=== PATIENT | female | born 1950 | race Caucasian/White ===

== ENCOUNTER 2017-08-04 23:17 | Emergency (ER) | payer OTHER ==
--- NOTE | 2017-08-04 23:25 | PDOC ---
History of Present Illness - General Chief Complaint: Injury Stated Complaint: FELL INJURING RIGHT HAND/WRIST Time Seen by Provider: 08/04/17 23:19 History Source: Patient Exam Limitations: No Limitations - History of Present Illness Initial Comments: 08/04/17 23:32 This is a 66-year-old female who slipped and fell landing on her right hand. Patient comes in complaining of bruising and pain to her right hand and wrist area. Patient denies any other injuries did not pass out did not hit her head. Patient is otherwise healthy. PAST MEDICAL HISTORY: no significant history PAST SURGICAL HISTORY: no significant history FAMILY HISTORY: no pertinant history SOCIAL HISTORY: Pt lives with family and is employed. MEDICATIONS: reviewed ALLERGIES: As per nursing notes Review of Systems General: No fevers or chills, no weakness, no weight loss HEENT: No change in vision. No sore throat,. No ear pain CardioVascular: No chest pain or shortness of breath Respiratory:No cough, or wheezing. Gastrointestinal: no nausea, vomitting, diarrhea or constipation, No rectal bleeding Genitourinary: No dysuria, hematuria, or frequency Musculoskeletal: Right hand as per history of present illness Neurologic: No headache, vertigo, dizziness or loss of consciousness Psychiatric: nor depression Skin: No rashes or easy bruising Endocrine: no increased thirst or abnormal weight change Allergic: no skin or latex allergy All other systems reviewed and normal GENERAL: The patient is awake, alert, and fully oriented, in no acute distress. HEAD: Normal with no signs of trauma. EYES: Pupils equal, round and reactive to light, extraocular movements intact, sclera anicteric, conjunctiva clear. EXTREMITIES: Right hand there is tenderness and ecchymosis over the dorsum of the hand. Neurovascular distal is intact. There is decreased range of motion of the hand secondary to pain and swelling. NEUROLOGICAL: Normal speech, normal gait. grossly intact PSYCH: Normal mood, normal affect. SKIN: Warm, Dry, normal turgor, no rashes or lesions noted. 08/05/17 00:20 I am unable to get an x-ray tech to come in tonight as there appears to be normal and on-call and then able to locate attack times the last. Hour. I gave the patient the option of being discharged and returning tomorrow for an x-ray or see her primary care doctor and having him call in a prescription for her x- ray. Patient was put in a splint and discharged. Patient will follow-up with her doctor Dr. Freed in the morning. Past History - Past Medical History Allergies/Adverse Reactions: Allergies Allergy/AdvReac Type Severity Reaction Status Date / Time hydroxychloroquine sulfate Allergy Intermediate Rash Verified 08/04/17 23:20 [From Plaquenil] codeine Allergy Verified 08/04/17 23:20 Home Medications: Ambulatory Orders Celecoxib [Celebrex] 200 mg PO DAILY capsule 04/18/14 Cholecalciferol (Vitamin D3) [Vitamin D] 2,000 unit BC DAILY capsule 04/18/14 Cyclosporine [Restasis] 1 each OP BID 04/18/14 *DC/Admit/Observation/Transfer Diagnosis at time of Disposition: Contusion of right hand Qualifiers: Encounter type: initial encounter Qualified Code(s): S60.221A - Contusion of right hand, initial encounter - Discharge Dispostion Disposition: HOME Condition at time of disposition: Stable Admit: No - Referrals - Patient Instructions Additional Instructions: Wear the splint tonight for comfort, For pain take ibuprofen 600 mg 3 times a day with food don't take on an empty stomach. Call your doctor in the morning and tell him you were here but we were unable to do the x-ray and the he should be able to give you a prescription to get the x-ray done without having to pay for another ER visit. Return to the emergency department immediately with ANY new, persistent or worsening symptoms. Continue any medications as previously prescribed by your physician. You should follow up with your primary doctor as soon as possible regarding today's emergency department visit. . Please make sure your doctor reviews the results of your emergency evaluation. Thank you for coming to the Emergency Department today for your care. It was a pleasure to see you today. Please note that your evaluation is INCOMPLETE until you follow-up with your doctor. - Post Discharge Activity
[2017-08-04 23:27] VITALS: BP 165/98; PULSE 118; TEMP 97.9; BMI 22.3
== END 2017-08-05 00:25 | disposition home or self-care (01) ==
LOC: FER 23:17
PROC: 2W3CX1Z Immobilization of Right Lower Arm using Splint (ICD-10-PCS; principal; 2017-08-04)
DX: S60.221A Contusion of right hand, initial encounter (principal); W18.39XA Other fall on same level, initial encounter; Y93.89 Activity, other specified; Y92.9 Unspecified place or not applicable
CPT/HCPCS: 99281-25

== ENCOUNTER 2017-08-05 13:13 | Emergency (ER) | payer OTHER ==
--- NOTE | 2017-08-05 13:32 | PDOC ---
History of Present Illness - History of Present Illness Initial Comments: 08/05/17 14:27 Chief complaint hand pain History of present illness: 66 years old no past medical history presents to the emergency department with fall onto outstretched hand. Patient had a mechanical slip and fall yesterday while He for the holidays. Denies any symptoms prior to the fall there was no headache dizziness lightheadedness chest pain shortness of breath she fell she landed on her right outstretched hand. No other injuries sustained no head trauma. Presents today with swelling bruising complaining of 8 out of 10 persistent constant pain no exacerbating or alleviating factors <Jean Tamez - Last Filed: 08/05/17 14:26> <Becki Bernardo - Last Filed: 08/05/17 14:39> - General Chief Complaint: Injury Stated Complaint: RIGHT WRIST INJURY Time Seen by Provider: 08/05/17 13:28 Past History - Past Medical History COPD: No - Suicide/Smoking/Psychosocial Hx Smoking History: Former smoker Have you smoked in the past 12 months: No Hx Alcohol Use: No Drug/Substance Use Hx: No Substance Use Type: None <Jean Tamez - Last Filed: 08/05/17 14:26> <Becki Bernardo - Last Filed: 08/05/17 14:39> - Past Medical History Allergies/Adverse Reactions: Allergies Allergy/AdvReac Type Severity Reaction Status Date / Time codeine Allergy Verified 08/05/17 13:25 Home Medications: Ambulatory Orders Cholecalciferol (Vitamin D3) [Vitamin D] 2,000 unit BC DAILY capsule 04/18/14 Cyclosporine [Restasis] 1 each OP BID 04/18/14 Methotrexate Sodium [Methotrexate] 2.5 mg PO ASDIR 08/05/17 Prednisone [Deltasone -] 2.5 mg PO DAILY 08/05/17 Tramadol HCl [Ultram -] 50 mg PO PRN 08/05/17 Review of Systems - Review of Systems Comments:: 08/05/17 14:27 ROS: A complete review of 10 out of 10 review of systems is taken and is negative apart from what is previously mentioned below and in the HPI. <Jean Tamez - Last Filed: 08/05/17 14:26> *Physical Exam - Physical Exam Comments: 08/05/17 14:28 Vitals: Triage Vital signs reviewed General Appearance: no acute distress, well nourished well developed, Extremities: Full range of motion to all extremities, no cyanosis, clubbing, or edema, neurovascularly intact distally. Tenderness to palpation over the distal radius and base of the thumb. Skin: Warm and dry, no rashes or lesions, no rash, no petechiae Neuro: Strength intact to all extremities, Sensation intact to all extremities, gait normal Psych: normal mood, normal affect <Jean Tamez - Last Filed: 08/05/17 14:26> - Vital Signs Last Vital Signs Temp Pulse Resp BP Pulse Ox 98.6 F 86 16 160/91 98 08/05/17 13:15 08/05/17 13:15 08/05/17 13:15 08/05/17 13:15 08/05/17 13:15 <Becki Bernardo - Last Filed: 08/05/17 14:39> ED Treatment Course - Medications Given in the ED: ED Medications Discontinued Medications Generic Name Dose Route Start Last Admin Trade Name Twyla PRN Reason Stop Dose Admin Ibuprofen 600 mg 08/05/17 13:47 08/05/17 13:52 Motrin - PO 08/05/17 13:48 600 mg ONCE ONE Administration <Becki Bernardo - Last Filed: 08/05/17 14:39> Medical Decision Making - Medical Decision Making 08/05/17 14:28 BRETT. X-rays demonstrate severe degenerative arthritis with no acute fracture or acute bone or joint abnormalities. Given tenderness palpation over the distal radius and proximal thumb we'll place in thumb spica wrist splint and have patient follow up with orthopedics this week Findings, the need for follow-up, strict return instructions discussed with patient. <Jean Tamez - Last Filed: 08/05/17 14:26> *DC/Admit/Observation/Transfer - Discharge Dispostion Admit: No <Jean Tamez - Last Filed: 08/05/17 14:26> <Becki Bernardo - Last Filed: 08/05/17 14:39> Diagnosis at time of Disposition: Wrist pain Qualifiers: Laterality: right Qualified Code(s): M25.531 - Pain in right wrist - Discharge Dispostion Condition at time of disposition: Stable - Referrals Referrals: Aric Victoria [Non Staff, Medical] - - Patient Instructions Printed Discharge Instructions: Wrist Sprain Additional Instructions: Wear wrist splint at all times until seen by Dr. Victoria hand. Ice 20 minutes on 20 minutes off. Okay to take Motrin as needed for pain. Return to ED for any concern. Follow-up with Dr. Victoria this week. Purchase a Thumb Spica splint.
[2017-08-05 13:39] VITALS: BP 160/91; PULSE 86; TEMP 98.6; BMI 22.3
[2017-08-05] MEDS ORDERED: IBUPROFEN 600 MG TABLET (FP) PO ONE ×2 (13:47→13:50)
== END 2017-08-05 15:13 | disposition home or self-care (01) ==
LOC: FER 13:13
PROC: 2W3CX1Z Immobilization of Right Lower Arm using Splint (ICD-10-PCS; principal; 2017-08-05)
DX: M25.531 Pain in right wrist (principal); W18.39XA Other fall on same level, initial encounter; Y93.89 Activity, other specified; Y92.9 Unspecified place or not applicable; Z87.891 Personal history of nicotine dependence
CPT/HCPCS: 73110-TC-RT; 73130-TC-RT; 99281-25

== ENCOUNTER 2018-09-03 06:06 | Day surgery (SDC) | payer BC ==
[2018-08-31 14:09] VITALS: BMI 24.5
[2018-09-03] MEDS ORDERED: ROPIVACAINE HCL 0.5% 30ML VIAL ONE (07:23)
[2018-09-03] MEDS ORDERED: ePHEDrine SULFATE 50 MG/1 ML AMPULE ONE (07:23)
[2018-09-03] MEDS ORDERED: MIDAZOLAM HCL 2 MG/2 ML SINGLE DOSE VIAL ONE (07:23)
[2018-09-03] MEDS ORDERED: SUCCINYLCHOLINE CHLORIDE 200 MG/10 ML VIAL ONE (07:24)
[2018-09-03] MEDS ORDERED: PROPOFOL 20 ML ONE ×12 (07:24→11:49)
[2018-09-03] MEDS ORDERED: EPINEPHrine 1:1,000 1 MG/1 ML - 30ML VIAL (INJECTION) ONE (07:26)
[2018-09-03] MEDS ORDERED: ONDANSETRON 4 MG/2 ML VIAL ONE (08:02)
[2018-09-03] MEDS ORDERED: DEXAMETHASONE SOD PHOSPHATE 4 MG/1 ML VIAL ONE (08:02)
[2018-09-03] MEDS ORDERED: ceFAZolin SODIUM 1 GM VIAL ONE (08:02)
[2018-09-03] MEDS ORDERED: oxyCODONE HCL 5 MG TABLET PO PRN ×2 (09:26)
[2018-09-03] MEDS ORDERED: ONDANSETRON 4 MG/2 ML VIAL IVPUSH PRN (09:26)
[2018-09-03] MEDS ORDERED: LACTATED RINGERS SOLUTION 1,000 ML IV SCH (09:30)
[2018-09-03] MEDS ORDERED: LIDOCAINE 1%/EPI 1:100000 (20 ML MULTI DOSE VIAL) ONE (11:31)
[2018-09-03] MEDS ORDERED: BACITRACIN 15 GM TUBE TOPICAL OINTMENT ONE (12:19)
[2018-09-03 14:23] VITALS: TEMP 98.2
[2018-09-03 15:34] VITALS: BP 139/75; PULSE 80
--- NOTE | 2018-09-04 08:58 | OP ---
DATE OF OPERATION: 09/03/2018 PREOPERATIVE DIAGNOSIS: Left shoulder rotator cuff tear, biceps rupture, impingement. POSTOPERATIVE DIAGNOSIS: Left shoulder rotator cuff tear, biceps rupture, impingement. PROCEDURE: Left shoulder arthroscopy with rotator cuff repair, biceps tenodesis, subacromial decompression. SURGEON: Emerson Lopez MD ASSISTANTS: 1. Migel Phillip MD 2. Malika Salas, physician delinquent tax collector assistant Dr. Phillip's assistance was necessary for the safe and timely performance of this procedure. He was able to provide limb positioning, retraction, assistance driving the camera, assist in suture passage as well as the insertion of orthopedic hardware. ANESTHESIA: Regional. POSTOPERATIVE CONDITION: Stable. COMPLICATIONS: None. IMPLANTS: Arthrex SwiveLock x6, Back [employer] Nephew QFIX x1. INDICATIONS: This is a pleasant 67-year-old female who had been suffering from shoulder pain and weakness. She is very active and likes to exercise at the gym frequently. She also noted deformity of her arm. MRI demonstrated rotator cuff tear as well as biceps rupture. Treatment options including nonoperative versus operative management were reviewed. Operative risks were reviewed in detail including bleeding, infection, neurovasculature injury, need for further surgery, postoperative pain and stiffness, rotator cuff re-rupture, failure to restore the normal contour and function of the biceps. We discussed medical risks such as heart attack, stroke, DVT, PE, and . I reviewed the postoperative rehabilitation protocol which is prolonged and slow. I discussed the use of perioperative antibiotic and DVT prophylaxis. I addressed all the patient's questions and concerns. She voiced understanding and elected to proceed. DESCRIPTION OF PROCEDURE: Patient was brought to the operating room after administration of regional block in the preoperative holding area. She was placed into the beach chair position, careful to pad all bony prominences. The left upper extremity was then prepped and draped in the usual sterile fashion. A preoperative dose of antibiotics was given, and the usual timeout procedure was performed. The bony landmarks were now marked out. A posterior viewing portal was established. Passing the arthroscope into the glenohumeral joint demonstrated some moderate partial-thickness chondral loss along the glenoid and humeral surfaces. The biceps stump was still present and folded inside the joint. The biceps was clearly ruptured, though. Passing the camera anteriorly demonstrated some degeneration of the anterior labrum. The subscapularis was examined, demonstrating full tear. The arthroscope was now passed back along the rotator cuff, and the supraspinatus was seen to be torn as well as the anterior border of the infraspinatus. At this point, an anterior portal was established. The base of the biceps was debrided. Attention was first turned to the subscapularis. Utilizing the shaver as well as electrocautery, the subscapularis was mobilized on its superior and posterior borders. This allowed quaker to the footprint. Additional working portals were established. The lesser tuberosity was debrided down to a bleeding bony base. Utilizing suture passer, 3 luggage tag-type sutures were passed through the subscapularis along its superior, middle, and inferior portions. These sutures were then loaded into a superior and an inferior SwiveLock anchor which were punched and then inserted, securing the subscapularis down to the bone. The shoulder was passed through a range of motion, and the repair was seen to be stable. Attention was then turned into the subacromial space. Here, impingement morphology was noted. A subacromial decompression was performed utilizing electrocautery as well as a shaver and a bur. The rotator cuff footprint was now debrided down to bleeding bone as well. Two medial row anchors were punched and then inserted. They were then passed through the rotator cuff using a suture passing device. The individual limbs were then passed into a crossing pattern and loaded into 2 lateral row anchors, securing the rotator cuff down onto the greater tuberosity. The shoulder was passed through a range of motion and the repair was seen to be stable. At this point, the portal sites were sutured. Attention was turned anteriorly. Incision was planned out over the inferior border of the pectoralis major tendon. The shoulder was reprepped at this time. The incision was then carried down through skin to subcutaneous tissue. Blunt spreading was then used to expose the fascia over the pectoralis tendon. Finger dissection was now used to carry down to the bicipital groove. Here, the stump of the biceps tendon was identified. The stump was retrieved out of the wound. The biceps was mobilized using finger dissection as much as possible. The bicipital groove was now rasped to provide a good healing bed. A QFIX anchor was drilled and then inserted into the midportion of the bicipital groove. The sutures were then passed through the stump of the biceps in whipstitch locking fashion. The biceps was then tied into the groove utilizing edgar technique with the suture. The excess sutures were now cut. The wound was copiously irrigated. The pectoralis wound was now sutured using mattress 4-0 nylon sutures. Sterile dressings were now placed. The patient was transferred to recovery room in stable condition. Sury MENDOZA/[id number]
== END 2018-09-03 15:15 | disposition home or self-care (01) ==
LOC: FASU 06:06
PROVIDERS: ATTEND Orthopaedic Surgery Sports Medicine
PROC: 0LS24ZZ Reposition Left Shoulder Tendon, Percutaneous Endoscopic Approach (ICD-10-PCS; 2018-09-03)
PROC: 0RNK4ZZ Release Left Shoulder Joint, Percutaneous Endoscopic Approach (ICD-10-PCS; 2018-09-03)
PROC: 0LQ24ZZ Repair Left Shoulder Tendon, Percutaneous Endoscopic Approach (ICD-10-PCS; principal; 2018-09-03 08:52)
DX: M75.102 Unspecified rotator cuff tear or rupture of left shoulder, not specified as traumatic (principal); M66.812 Spontaneous rupture of other tendons, left shoulder
CPT/HCPCS: 94760

== ENCOUNTER 2020-11-08 06:39 | Day surgery (SDC) | payer BC ==
[2020-11-06 15:11] VITALS: BMI 22.6
[2020-11-08] MEDS ORDERED: TROPICAMIDE 1% OPHTH SOLN 15 ML BOTTLE ONE (07:33)
[2020-11-08] MEDS ORDERED: CIPROFLOXACIN 0.3% EYE DROPS 5 ML BOTTLE ONE (07:33)
[2020-11-08] MEDS ORDERED: PHENYLEPHRINE 2.5% OPHTH SOLN 15 ML BOTTLE ONE (07:33)
[2020-11-08] MEDS ORDERED: CYCLOPENTOLATE 2% OPHTH SOLN 2 ML BOTTLE ONE (07:33)
[2020-11-08] MEDS ORDERED: TETRACAINE 0.5% OPHTH SOLN 2 ML BOTTLE ONE (08:32)
[2020-11-08] MEDS ORDERED: NEO/POLYMYX B SULF/DEXAMETH OPHTHALMIC 5ML BOTTLE ONE (08:32)
[2020-11-08] MEDS ORDERED: CARBACHOL 0.01% INTRA-OCULAR 1.5 ML VIAL ONE (08:32)
[2020-11-08] MEDS ORDERED: BSS (NA/CA/MG/K) BALANCED SALT SOLUTION OPHTH SOLN 15 ML BOTTLE ONE (08:32)
[2020-11-08] MEDS ORDERED: LIDOCAINE 1% P/F 10 MG/ML VIAL ONE (08:32)
[2020-11-08] MEDS ORDERED: MIDAZOLAM HCL 2 MG/2 ML SINGLE DOSE VIAL ONE ×2 (08:46→08:56)
[2020-11-08 09:21] VITALS: PULSE 67
[2020-11-08 09:52] VITALS: BP 125/68; TEMP 98
== END 2020-11-08 10:06 | disposition home or self-care (01) ==
LOC: FASU 06:39
PROVIDERS: ATTEND Ophthalmology
PROC: 08RJ3JZ Replacement of Right Lens with Synthetic Substitute, Percutaneous Approach (ICD-10-PCS; principal; 2020-11-08 08:54)
DX: H26.8 Other specified cataract (principal)

== ENCOUNTER 2020-12-13 07:32 | Day surgery (SDC) | payer BC ==
[2020-12-08 16:24] VITALS: BMI 22.6
[2020-12-13] MEDS: CIPROFLOXACIN 0.3% EYE DROPS 5 ML BOTTLE ONE ×3 (08:05→08:15)
[2020-12-13] MEDS: CYCLOPENTOLATE 2% OPHTH SOLN 2 ML BOTTLE ONE ×3 (08:05→08:15)
[2020-12-13] MEDS: TROPICAMIDE 1% OPHTH SOLN 15 ML BOTTLE ONE ×3 (08:05→08:15)
[2020-12-13] MEDS: PHENYLEPHRINE 2.5% OPHTH SOLN 15 ML BOTTLE ONE ×3 (08:05→08:15)
[2020-12-13] MEDS ORDERED: LIDOCAINE 1% P/F 10 MG/ML VIAL ONE (08:55)
[2020-12-13] MEDS ORDERED: CARBACHOL 0.01% INTRA-OCULAR 1.5 ML VIAL ONE (08:55)
[2020-12-13] MEDS ORDERED: NEO/POLYMYX B SULF/DEXAMETH OPHTHALMIC 5ML BOTTLE ONE (08:55)
[2020-12-13] MEDS ORDERED: BSS (NA/CA/MG/K) BALANCED SALT SOLUTION OPHTH SOLN 15 ML BOTTLE ONE (08:55)
[2020-12-13] MEDS ORDERED: TETRACAINE 0.5% OPHTH SOLN 2 ML BOTTLE ONE (08:55)
[2020-12-13] MEDS ORDERED: MIDAZOLAM HCL 2 MG/2 ML SINGLE DOSE VIAL ONE ×2 (09:03→09:18)
[2020-12-13 10:14] VITALS: BP 139/80; PULSE 77; TEMP 97.9
== END 2020-12-13 10:14 | disposition home or self-care (01) ==
LOC: FASU 07:32
PROVIDERS: ATTEND Ophthalmology
PROC: 08RK3JZ Replacement of Left Lens with Synthetic Substitute, Percutaneous Approach (ICD-10-PCS; principal; 2020-12-13 09:18)
DX: H26.8 Other specified cataract (principal)

== ENCOUNTER 2022-02-12 14:22 | Emergency (ER) | payer BC ==
[2022-02-12 15:11] VITALS: BP 134/80; PULSE 83; TEMP 98.9; BMI 23.3
[2022-02-12] MEDS ORDERED: FAMOTIDINE 20 MG/50 ML IVPB 20 MG/50 ML MG IVPB ONE ×2 (15:27→15:50)
[2022-02-12] MEDS ORDERED: LOPERAMIDE HCL 2 MG CAPSULE PO ONE (15:27)
[2022-02-12] MEDS ORDERED: ACETAMINOPHEN 1000 MG/100 ML BAG IVPB ONE (15:27)
[2022-02-12] MEDS ORDERED: ONDANSETRON 4 MG/2 ML VIAL IVPUSH ONE (15:27)
[2022-02-12] MEDS ORDERED: SODIUM CHLORIDE 0.9% 1000 ML INFUS.BAG IV ONE (15:27)
[2022-02-12] MEDS ORDERED: COD LIVER OIL/ZINC OXIDE PASTE 56 GM TUBE TP ONE (15:42)
[2022-02-12] MEDS ORDERED: ALPRAZolam 0.25 MG TABLET PO ONE (15:44)
[2022-02-12] MEDS ORDERED: ACETAMINOPHEN INJECTION 100 ML IVPB ONE (15:50)
[2022-02-12] MEDS ORDERED: LOPERAMIDE HCL 2 MG CAPSULE ONE (15:50)
[2022-02-12] MEDS ORDERED: ONDANSETRON 4 MG/2 ML VIAL ONE (15:50)
[2022-02-12] MEDS ORDERED: ALPRAZolam 0.25 MG TABLET ONE (15:51)
[2022-02-12 16:31] LABS: HEMATOCRIT 24.3 % (32.4-45.2); HEMOGLOBIN 8.3 G/dL (10.7-15.3); MCH 27.6 pg (25.7-33.7); MEAN CELL VOLUME 81.4 fl (80-96); MEAN PLT VOLUME 7.7 fl (7.5-11.1); PLATELET COUNT 528.8 10^3/uL (134-434); RBC 2.99 10^6/uL (3.60-5.2); RDW 17.2 % (11.6-15.6); WHITE BLOOD COUNT 10.8 10^3/uL (4.0-10.8)
[2022-02-12 17:35] LABS: ALBUMIN 2.7 g/dl (3.4-5.0); BILIRUBIN,TOTAL 0.4 mg/dl (0.2-1); CALCIUM 9.8 mg/dl (8.5-10); CREATININE 0.6 mg/dl (0.55-1.3); TOT PROT 7.2 g/dl (6.4-8.2)
[2022-02-12] MEDS ORDERED: POTASSIUM CHLORIDE ORAL LIQUID 20 MEQ/15 ML PO ONE (18:31)
[2022-02-12] MEDS ORDERED: POTASSIUM CHLORIDE TABS 20 MEQ TABLET.ER (FP) PO ONE ×2 (18:31→19:07)
[2022-02-12] MEDS ORDERED: POTASSIUM CHLORIDE ORAL LIQUID 20 MEQ/15 ML ONE (19:07)
== END 2022-02-12 22:30 | disposition home or self-care (01) ==
LOC: FER 14:22
PROC: 3E0333Z Introduction of Anti-inflammatory into Peripheral Vein, Percutaneous Approach (ICD-10-PCS; principal; 2022-02-12)
PROC: 3E033GC Introduction of Other Therapeutic Substance into Peripheral Vein, Percutaneous Approach (ICD-10-PCS; 2022-02-12)
PROC: 3E033GC Introduction of Other Therapeutic Substance into Peripheral Vein, Percutaneous Approach (ICD-10-PCS; 2022-02-12)
DX: A09 Infectious gastroenteritis and colitis, unspecified (principal)
CPT/HCPCS: 36415; 72132-TC; 80053; 85027; 87040; 87186; 99284-25; Q9967

== ENCOUNTER 2022-02-13 20:31 | Emergency (ER) | payer BC ==
[2022-02-13 20:44] VITALS: BP 135/60; PULSE 80; TEMP 98.8; BMI 23.8
== END 2022-02-13 22:04 | disposition home or self-care (01) ==
LOC: FER 20:31
DX: R79.89 Other specified abnormal findings of blood chemistry (principal)
CPT/HCPCS: 87040; 99283-25

== ENCOUNTER 2022-03-02 19:17 | Inpatient (IN) | payer BC ==
[2022-03-02 20:03] LABS: HEMATOCRIT 28.1 % (32.4-45.2); HEMOGLOBIN 9.3 G/dL (10.7-15.3); MCH 27.2 pg (25.7-33.7); MEAN CELL VOLUME 82.6 fl (80-96); MEAN PLT VOLUME 7.9 fl (7.5-11.1); PLATELET COUNT 448.8 10^3/uL (134-434); RDW 18.4 % (11.6-15.6); WHITE BLOOD COUNT 11.9 10^3/uL (4.0-10.8)
[2022-03-02 20:19] LABS: ALBUMIN 3.3 g/dl (3.4-5.0); BILIRUBIN,TOTAL 0.6 mg/dl (0.2-1); CREATININE 0.6 mg/dl (0.55-1.3); TOT PROT 8.5 g/dl (6.4-8.2)
[2022-03-02] MEDS ORDERED: CYCLOBENZAPRINE HCL 5 MG TABLET PO STA (20:42)
[2022-03-02] MEDS ORDERED: CYCLOBENZAPRINE HCL 5 MG TABLET ONE (20:45)
[2022-03-02 21:02] LABS: ANISOCYTOSIS 2+
[2022-03-02 21:03] LABS: TEAR DROP CELLS 1+
[2022-03-02 21:16] LABS: EPITHELIAL CELLS FEW /hpf
[2022-03-03] MEDS ORDERED: MAGNESIUM SULFATE IN WATER 2 GM/50 ML IVPB IVPB ONE (00:05)
[2022-03-03] MEDS ORDERED: MAGNESIUM 1GM/D5W - 2 GM/200 ML IVPB IVPB ONE (00:06)
[2022-03-03] MEDS ORDERED: POLYETHYLENE GLYCOL (HEALTHYLAX) 3350 17 GM PACKET PO PRN (00:08)
[2022-03-03] MEDS ORDERED: amLODIPine BESYLATE 5 MG TABLET (FP) PO SCH (00:13)
[2022-03-03] MEDS: EZETIMIBE 10 MG TABLET (FP) PO SCH ×2 (01:05→21:06)
[2022-03-03] MEDS: oxyCODONE HCL 5 MG TABLET PO PRN ×4 (02:54→20:45)
[2022-03-03] MEDS: ACETAMINOPHEN 325 MG TABLET (FP) PO PRN ×4 (02:56→20:44)
[2022-03-03] MEDS: methylPREDNISolone 4 MG TABLET PO SCH (09:06)
[2022-03-03] MEDS: ESCITALOPRAM OXALATE 10 MG TABLET PO SCH (09:07)
[2022-03-03] MEDS: ENOXAPARIN NA (PORCINE) 40 MG/0.4 ML DISP.SYRIN SQ SCH (09:07)
[2022-03-03] MEDS ORDERED: LIDOCAINE 5% TOPICAL PATCH TP ONE (09:10)
[2022-03-03 09:42] LABS: HEMATOCRIT 28.5 % (32.4-45.2); HEMOGLOBIN 9.2 G/dL (10.7-15.3); MCH 26.8 pg (25.7-33.7); MCHC 32.2 g/dl (32.0-36.0); MEAN CELL VOLUME 83.2 fl (80-96); MEAN PLT VOLUME 8.3 fl (7.5-11.1); PLATELET COUNT 481.5 10^3/uL (134-434); RBC 3.43 10^6/uL (3.60-5.2); RDW 18.4 % (11.6-15.6); WHITE BLOOD COUNT 8.7 10^3/uL (4.0-10.8)
[2022-03-03 09:49] LABS: ACTIVATED PTT 36.5 SECONDS (25.2-36.5); INR 1.15 (0.83-1.09); PROTHROMBIN TIME (PATIENT) 13.3 SEC (9.7-13.0)
[2022-03-03 10:04] LABS: CALCIUM 9.9 mg/dl (8.5-10); CREATININE 0.6 mg/dl (0.55-1.3)
[2022-03-03] MEDS: GABAPENTIN 100 MG CAPSULE PO SCH ×3 (10:13→21:06)
[2022-03-03] MEDS ORDERED: SODIUM CHLORIDE 1,000 ML IV SCH (10:15)
[2022-03-03] MEDS: FAMOTIDINE 20 MG TABLET PO SCH (10:48)
[2022-03-03] MEDS ORDERED: BACLOFEN 10 MG TABLET (FP) PO ONE (13:03)
[2022-03-03] MEDS: TOFACITINIB 11 MG PO SCH (13:52)
[2022-03-03] MEDS: FERROUS SO4 325 MG TABLET (FP) PO SCH (17:24)
[2022-03-03] MEDS ORDERED: LIDOCAINE PATCH REMOVAL MC ONE (22:00)
[2022-03-03] MEDS: ALPRAZolam 0.25 MG TABLET PO PRN (23:42)
[2022-03-04] MEDS: oxyCODONE HCL 5 MG TABLET PO PRN (04:05)
[2022-03-04] MEDS: GABAPENTIN 100 MG CAPSULE PO SCH ×3 (06:34→21:06)
[2022-03-04 08:04] LABS: CALCIUM 9.7 mg/dl (8.5-10); CREATININE 0.7 mg/dl (0.55-1.3); HEMATOCRIT 26.2 % (32.4-45.2); HEMOGLOBIN 8.5 G/dL (10.7-15.3); MCHC 32.5 g/dl (32.0-36.0); MEAN CELL VOLUME 83.2 fl (80-96); PLATELET COUNT 459.2 10^3/uL (134-434); RBC 3.15 10^6/uL (3.60-5.2); RDW 18.8 % (11.6-15.6); WHITE BLOOD COUNT 8.9 10^3/uL (4.0-10.8)
[2022-03-04] MEDS: ACETAMINOPHEN 325 MG TABLET (FP) PO PRN ×2 (09:15→18:31)
[2022-03-04] MEDS: FERROUS SO4 325 MG TABLET (FP) PO SCH ×3 (09:15→19:11)
[2022-03-04] MEDS: FAMOTIDINE 20 MG TABLET PO SCH (10:32)
[2022-03-04] MEDS: ENOXAPARIN NA (PORCINE) 40 MG/0.4 ML DISP.SYRIN SQ SCH (10:32)
[2022-03-04] MEDS: methylPREDNISolone 4 MG TABLET PO SCH (10:32)
[2022-03-04] MEDS: TOFACITINIB 11 MG PO SCH (10:32)
[2022-03-04] MEDS: ESCITALOPRAM OXALATE 10 MG TABLET PO SCH (10:32)
[2022-03-04] MEDS: amLODIPine BESYLATE 5 MG TABLET (FP) PO SCH (10:32)
[2022-03-04] MEDS: BACLOFEN 10 MG TABLET (FP) PO SCH ×2 (14:24→21:06)
[2022-03-04] MEDS: EZETIMIBE 10 MG TABLET (FP) PO SCH (21:06)
[2022-03-05] MEDS: ACETAMINOPHEN 325 MG TABLET (FP) PO PRN ×2 (04:32→14:18)
[2022-03-05] MEDS: GABAPENTIN 100 MG CAPSULE PO SCH ×3 (05:44→21:57)
[2022-03-05] MEDS: BACLOFEN 10 MG TABLET (FP) PO SCH ×3 (05:44→21:57)
[2022-03-05 07:25] LABS: ALBUMIN 2.9 g/dl (3.4-5.0); BILIRUBIN,TOTAL 0.6 mg/dl (0.2-1); CALCIUM 9.6 mg/dl (8.5-10); CREATININE 0.6 mg/dl (0.55-1.3); TOT PROT 7.7 g/dl (6.4-8.2)
[2022-03-05] MEDS: FERROUS SO4 325 MG TABLET (FP) PO SCH ×2 (07:55→17:40)
[2022-03-05 08:12] LABS: HEMATOCRIT 26.3 % (32.4-45.2); HEMOGLOBIN 8.6 GM/dL (10.7-15.3); MCH 26.2 pg (25.7-33.7); MCHC 32.6 g/dl (32.0-36.0); MEAN CELL VOLUME 80.3 fl (80-96); MEAN PLT VOLUME 7.4 fl (7.5-11.1); PLATELET COUNT 447 10^3/uL (134-434); RBC 3.28 M/mm3 (3.60-5.2); RDW 19.1 % (11.6-15.6); WHITE BLOOD COUNT 9.1 K/mm3 (4.0-10.0)
[2022-03-05] MEDS ORDERED: CEFAZOLIN 1 GM in DEXTROSE 5%-WATER - 50 ML IVPB SCH (10:00)
[2022-03-05] MEDS: methylPREDNISolone 4 MG TABLET PO SCH (11:40)
[2022-03-05] MEDS: FAMOTIDINE 20 MG TABLET PO SCH (11:40)
[2022-03-05] MEDS: amLODIPine BESYLATE 5 MG TABLET (FP) PO SCH (11:40)
[2022-03-05] MEDS: ENOXAPARIN NA (PORCINE) 40 MG/0.4 ML DISP.SYRIN SQ SCH (11:40)
[2022-03-05] MEDS: TOFACITINIB 11 MG PO SCH (11:40)
[2022-03-05] MEDS: ESCITALOPRAM OXALATE 10 MG TABLET PO SCH (11:40)
[2022-03-05] MEDS: ALPRAZolam 0.25 MG TABLET PO PRN (21:57)
[2022-03-05] MEDS: EZETIMIBE 10 MG TABLET (FP) PO SCH (21:57)
[2022-03-06] MEDS: GABAPENTIN 100 MG CAPSULE PO SCH ×3 (05:22→21:14)
[2022-03-06] MEDS: BACLOFEN 10 MG TABLET (FP) PO SCH ×3 (05:23→21:14)
[2022-03-06] MEDS: FERROUS SO4 325 MG TABLET (FP) PO SCH ×2 (07:27→17:50)
[2022-03-06 08:24] LABS: INR 1.24 (0.83-1.09); PROTHROMBIN TIME (PATIENT) 14.3 SEC (9.7-13.0)
[2022-03-06 08:26] LABS: ACTIVATED PTT 35.6 SECONDS (25.2-36.5)
[2022-03-06 08:32] LABS: ALBUMIN 2.9 g/dl (3.4-5.0); BILIRUBIN,TOTAL 0.5 mg/dl (0.2-1); CALCIUM 9.8 mg/dl (8.5-10); CREATININE 0.6 mg/dl (0.55-1.3); TOT PROT 7.7 g/dl (6.4-8.2)
[2022-03-06 09:24] LABS: HEMATOCRIT 24.9 % (32.4-45.2); MCHC 32.1 g/dl (32.0-36.0); MEAN PLT VOLUME 7.7 fl (7.5-11.1); PLATELET COUNT 446 10^3/uL (134-434); RBC 3.08 M/mm3 (3.60-5.2); RDW 19.2 % (11.6-15.6); WHITE BLOOD COUNT 8.6 K/mm3 (4.0-10.0)
[2022-03-06] MEDS: ESCITALOPRAM OXALATE 10 MG TABLET PO SCH (09:28)
[2022-03-06] MEDS: FAMOTIDINE 20 MG TABLET PO SCH (09:29)
[2022-03-06] MEDS: amLODIPine BESYLATE 5 MG TABLET (FP) PO SCH (09:29)
[2022-03-06] MEDS: ENOXAPARIN NA (PORCINE) 40 MG/0.4 ML DISP.SYRIN SQ SCH (09:29)
[2022-03-06] MEDS: TOFACITINIB 11 MG PO SCH (09:29)
[2022-03-06] MEDS: methylPREDNISolone 4 MG TABLET PO SCH (09:29)
[2022-03-06] MEDS ORDERED: NAFCILLIN NA 2 GM VIAL IVPB ONE ×4 (11:27→21:02)
[2022-03-06] MEDS ORDERED: DEXTROSE 5%-WATER - 100 ML IVPB ONE ×4 (11:27→21:01)
[2022-03-06] MEDS: NAFCILLIN - 2 GM in DEXTROSE 5%-WATER - 100 ML IVPB SCH ×4 (11:33→21:14)
[2022-03-07] MEDS ORDERED: NAFCILLIN NA 2 GM VIAL IVPB ONE ×6 (00:30→20:45)
[2022-03-07] MEDS ORDERED: DEXTROSE 5%-WATER - 100 ML IVPB ONE ×6 (00:30→20:44)
[2022-03-07] MEDS: NAFCILLIN - 2 GM in DEXTROSE 5%-WATER - 100 ML IVPB SCH ×6 (01:17→23:26)
[2022-03-07] MEDS: GABAPENTIN 100 MG CAPSULE PO SCH ×3 (06:13→20:59)
[2022-03-07] MEDS: BACLOFEN 10 MG TABLET (FP) PO SCH ×3 (06:13→20:59)
[2022-03-07] MEDS: ALPRAZolam 1 MG TABLET PO PRN ×2 (08:57→22:41)
[2022-03-07] MEDS: FERROUS SO4 325 MG TABLET (FP) PO SCH ×2 (08:57→17:19)
[2022-03-07] MEDS: amLODIPine BESYLATE 5 MG TABLET (FP) PO SCH (10:16)
[2022-03-07] MEDS: FAMOTIDINE 20 MG TABLET PO SCH (10:16)
[2022-03-07] MEDS: ESCITALOPRAM OXALATE 10 MG TABLET PO SCH (10:16)
[2022-03-07] MEDS: ENOXAPARIN NA (PORCINE) 40 MG/0.4 ML DISP.SYRIN SQ SCH (10:24)
[2022-03-07] MEDS: ACETAMINOPHEN 325 MG TABLET (FP) PO PRN (14:42)
[2022-03-08] MEDS: NAFCILLIN - 2 GM in DEXTROSE 5%-WATER 100 ML IVPB SCH ×6 (01:16→21:44)
[2022-03-08] MEDS: ACETAMINOPHEN 1000 MG/100 ML BAG IVPB PRN ×3 (04:02→20:19)
[2022-03-08] MEDS: BACLOFEN 10 MG TABLET (FP) PO SCH ×3 (05:32→21:43)
[2022-03-08] MEDS: GABAPENTIN 100 MG CAPSULE PO SCH ×3 (05:32→21:43)
[2022-03-08] MEDS ORDERED: POLYETHYLENE GLYCOL (HEALTHYLAX) 3350 17 GM PACKET PO PRN (07:48)
[2022-03-08] MEDS: ALPRAZolam 1 MG TABLET PO PRN (08:55)
[2022-03-08] MEDS ORDERED: NAFCILLIN NA 2 GM VIAL IVPB ONE ×4 (09:01→21:12)
[2022-03-08] MEDS: ESCITALOPRAM OXALATE 10 MG TABLET PO SCH (09:07)
[2022-03-08] MEDS: FAMOTIDINE 20 MG TABLET PO SCH (09:07)
[2022-03-08] MEDS: FERROUS SO4 325 MG TABLET (FP) PO SCH ×2 (09:19→18:17)
[2022-03-08] MEDS: ENOXAPARIN NA (PORCINE) 40 MG/0.4 ML DISP.SYRIN SQ SCH (10:59)
[2022-03-08] MEDS: amLODIPine BESYLATE 5 MG TABLET (FP) PO SCH (10:59)
[2022-03-08] MEDS ORDERED: DEXTROSE 5%-WATER 100 ML IVPB ONE ×2 (16:05→21:12)
[2022-03-09] MEDS: NAFCILLIN - 2 GM in DEXTROSE 5%-WATER 100 ML IVPB SCH ×6 (01:22→22:16)
[2022-03-09] MEDS: ACETAMINOPHEN 1000 MG/100 ML BAG IVPB PRN ×2 (05:53→14:12)
[2022-03-09] MEDS: BACLOFEN 10 MG TABLET (FP) PO SCH ×3 (05:58→22:08)
[2022-03-09] MEDS: GABAPENTIN 100 MG CAPSULE PO SCH ×3 (05:58→22:08)
[2022-03-09] MEDS ORDERED: NAFCILLIN NA 2 GM VIAL IVPB ONE ×3 (06:08→17:12)
[2022-03-09] MEDS ORDERED: DEXTROSE 5%-WATER 100 ML IVPB ONE ×3 (06:08→17:12)
[2022-03-09] MEDS: ALPRAZolam 1 MG TABLET PO PRN (08:41)
[2022-03-09] MEDS: FERROUS SO4 325 MG TABLET (FP) PO SCH ×2 (08:41→17:36)
[2022-03-09] MEDS: ESCITALOPRAM OXALATE 10 MG TABLET PO SCH (09:41)
[2022-03-09] MEDS: ENOXAPARIN NA (PORCINE) 40 MG/0.4 ML DISP.SYRIN SQ SCH (09:41)
[2022-03-09] MEDS: FAMOTIDINE 20 MG TABLET PO SCH (09:41)
[2022-03-09] MEDS: amLODIPine BESYLATE 5 MG TABLET (FP) PO SCH (09:41)
[2022-03-09 10:11] LABS: BASO % 0.4 % (0-2.0); EOS % 0.3 % (0-4.5); HEMATOCRIT 25.8 % (32.4-45.2); HEMOGLOBIN 8.4 GM/dL (10.7-15.3); LYMPH % 11.9 % (8-40); MCH 25.8 pg (25.7-33.7); MCHC 32.5 g/dl (32.0-36.0); MEAN CELL VOLUME 79.4 fl (80-96); MONO % 13.3 % (3.8-10.2); NEUT % 74.1 % (42.8-82.8); PLATELET COUNT 537 10^3/uL (134-434); RBC 3.25 M/mm3 (3.60-5.2); RDW 18.9 % (11.6-15.6); WHITE BLOOD COUNT 8.7 K/mm3 (4.0-10.0)
[2022-03-09 10:45] LABS: CALCIUM 9.9 mg/dL (8.5-10.1)
[2022-03-09 10:46] LABS: BLOOD UREA NITROGEN 11.7 mg/dL (7-18); MAGNESIUM 1.6 mg/dL (1.8-2.4)
[2022-03-09 10:49] LABS: CREATININE 0.7 mg/dL (0.55-1.3); PHOSPHOROUS 2.8 mg/dL (2.5-4.9)
[2022-03-09] MEDS ORDERED: POTASSIUM CHLORIDE ORAL LIQUID 20 MEQ/15 ML PO ONE (12:11)
[2022-03-10] MEDS: ACETAMINOPHEN 1000 MG/100 ML BAG IVPB PRN ×2 (01:24→18:50)
[2022-03-10] MEDS: NAFCILLIN - 2 GM in DEXTROSE 5%-WATER 100 ML IVPB SCH ×6 (02:10→21:34)
[2022-03-10] MEDS ORDERED: DEXTROSE 5%-WATER 100 ML IVPB ONE ×6 (03:09→21:29)
[2022-03-10] MEDS ORDERED: NAFCILLIN NA 2 GM VIAL IVPB ONE ×6 (03:09→21:28)
[2022-03-10] MEDS: ALPRAZolam 1 MG TABLET PO PRN ×2 (03:34→18:02)
[2022-03-10] MEDS: BACLOFEN 10 MG TABLET (FP) PO SCH ×3 (05:47→21:34)
[2022-03-10] MEDS: GABAPENTIN 100 MG CAPSULE PO SCH ×3 (05:47→21:34)
[2022-03-10] MEDS: FERROUS SO4 325 MG TABLET (FP) PO SCH ×2 (08:20→17:24)
[2022-03-10 08:38] LABS: BASO % 0.6 % (0-2.0); EOS % 0.8 % (0-4.5); HEMATOCRIT 21.5 % (32.4-45.2); LYMPH % 21.3 % (8-40); MCH 25.5 pg (25.7-33.7); MCHC 32.5 g/dl (32.0-36.0); MEAN CELL VOLUME 78.5 fl (80-96); MEAN PLT VOLUME 7.6 fl (7.5-11.1); MONO % 14.1 % (3.8-10.2); NEUT % 63.2 % (42.8-82.8); PLATELET COUNT 459 10^3/uL (134-434); RBC 2.74 M/mm3 (3.60-5.2); RDW 18.7 % (11.6-15.6)
[2022-03-10 09:10] LABS: BLOOD UREA NITROGEN 11.8 mg/dL (7-18); CALCIUM 9.7 mg/dL (8.5-10.1)
[2022-03-10 09:11] LABS: ALBUMIN 2.5 g/dl (3.4-5.0); CREATININE 0.7 mg/dL (0.55-1.3)
[2022-03-10 09:13] LABS: BILIRUBIN,TOTAL 0.8 mg/dL (0.2-1); TOT PROT 7.3 g/dl (6.4-8.2)
[2022-03-10] MEDS: amLODIPine BESYLATE 5 MG TABLET (FP) PO SCH (09:31)
[2022-03-10] MEDS: ESCITALOPRAM OXALATE 10 MG TABLET PO SCH (09:31)
[2022-03-10] MEDS: FAMOTIDINE 20 MG TABLET PO SCH (09:32)
[2022-03-10] MEDS: ENOXAPARIN NA (PORCINE) 40 MG/0.4 ML DISP.SYRIN SQ SCH (09:32)
[2022-03-10 10:01] LABS: ERYTHROCYTE SEDIMENTATION RATE > 140 mm/hr (0-30)
[2022-03-10] MEDS ORDERED: GABAPENTIN 100 MG CAPSULE PO ONE (23:20)
[2022-03-11] MEDS ORDERED: NAFCILLIN NA 2 GM VIAL IVPB ONE ×6 (01:29→21:08)
[2022-03-11] MEDS ORDERED: DEXTROSE 5%-WATER 100 ML IVPB ONE ×6 (01:29→21:08)
[2022-03-11] MEDS: NAFCILLIN - 2 GM in DEXTROSE 5%-WATER 100 ML IVPB SCH ×6 (01:43→21:12)
[2022-03-11] MEDS: GABAPENTIN 100 MG CAPSULE PO SCH ×3 (06:48→21:12)
[2022-03-11] MEDS: BACLOFEN 10 MG TABLET (FP) PO SCH ×3 (06:48→21:12)
[2022-03-11] MEDS ORDERED: ONDANSETRON 4 MG/2 ML VIAL IVPUSH ONE (07:28)
[2022-03-11] MEDS: FERROUS SO4 325 MG TABLET (FP) PO SCH ×2 (08:19→17:22)
[2022-03-11 09:34] LABS: HEMATOCRIT 21.9 % (32.4-45.2); HEMOGLOBIN 7.1 GM/dL (10.7-15.3); MCH 25.7 pg (25.7-33.7); MCHC 32.6 g/dl (32.0-36.0); MEAN CELL VOLUME 78.9 fl (80-96); MEAN PLT VOLUME 7.7 fl (7.5-11.1); PLATELET COUNT 477 10^3/uL (134-434); RBC 2.78 M/mm3 (3.60-5.2); RDW 19.4 % (11.6-15.6); WHITE BLOOD COUNT 5.7 K/mm3 (4.0-10.0)
[2022-03-11 10:05] LABS: CALCIUM 9.2 mg/dL (8.5-10.1)
[2022-03-11 10:06] LABS: BLOOD UREA NITROGEN 9.6 mg/dL (7-18)
[2022-03-11 10:09] LABS: CREATININE 0.7 mg/dL (0.55-1.3)
[2022-03-11] MEDS: FAMOTIDINE 20 MG TABLET PO SCH (10:21)
[2022-03-11] MEDS: PANTOPRAZOLE 40 MG TABLET PO SCH (10:21)
[2022-03-11] MEDS: ESCITALOPRAM OXALATE 10 MG TABLET PO SCH (10:21)
[2022-03-11] MEDS: amLODIPine BESYLATE 5 MG TABLET (FP) PO SCH (10:21)
[2022-03-11] MEDS: ALPRAZolam 1 MG TABLET PO PRN ×2 (10:28→21:35)
[2022-03-11] MEDS ORDERED: ONDANSETRON 4 MG/2 ML VIAL IVPUSH PRN (13:00)
[2022-03-12] MEDS ORDERED: DEXTROSE 5%-WATER 100 ML IVPB ONE ×2 (01:10→10:10)
[2022-03-12] MEDS ORDERED: NAFCILLIN NA 2 GM VIAL IVPB ONE ×2 (01:10→10:09)
[2022-03-12] MEDS: NAFCILLIN - 2 GM in DEXTROSE 5%-WATER 100 ML IVPB SCH ×6 (01:12→21:04)
[2022-03-12] MEDS: GABAPENTIN 100 MG CAPSULE PO SCH ×3 (05:39→21:04)
[2022-03-12] MEDS: BACLOFEN 10 MG TABLET (FP) PO SCH ×3 (05:39→21:04)
[2022-03-12] MEDS: FERROUS SO4 325 MG TABLET (FP) PO SCH ×2 (08:22→18:51)
[2022-03-12 09:20] LABS: BASO % 0.6 % (0-2.0); EOS % 0.7 % (0-4.5); HEMATOCRIT 22.5 % (32.4-45.2); HEMOGLOBIN 7.4 GM/dL (10.7-15.3); LYMPH % 19.4 % (8-40); MCH 26.1 pg (25.7-33.7); MEAN CELL VOLUME 79.1 fl (80-96); MEAN PLT VOLUME 7.9 fl (7.5-11.1); MONO % 15.5 % (3.8-10.2); NEUT % 63.8 % (42.8-82.8); PLATELET COUNT 493 10^3/uL (134-434); RBC 2.85 M/mm3 (3.60-5.2)
[2022-03-12 09:47] LABS: BLOOD UREA NITROGEN 9.8 mg/dL (7-18)
[2022-03-12 09:48] LABS: CALCIUM 9.5 mg/dL (8.5-10.1); MAGNESIUM 1.7 mg/dL (1.8-2.4)
[2022-03-12 09:50] LABS: CREATININE 0.7 mg/dL (0.55-1.3)
[2022-03-12 09:52] LABS: PHOSPHOROUS 3.2 mg/dL (2.5-4.9)
[2022-03-12] MEDS ORDERED: ENOXAPARIN NA (PORCINE) 40 MG/0.4 ML DISP.SYRIN SQ SCH (10:00)
[2022-03-12] MEDS: amLODIPine BESYLATE 5 MG TABLET (FP) PO SCH (10:15)
[2022-03-12] MEDS: PANTOPRAZOLE 40 MG TABLET PO SCH (10:15)
[2022-03-12] MEDS: ESCITALOPRAM OXALATE 10 MG TABLET PO SCH (10:15)
[2022-03-12] MEDS: FAMOTIDINE 20 MG TABLET PO SCH (10:15)
[2022-03-12] MEDS ORDERED: POTASSIUM CHLORIDE TABS 20 MEQ TABLET.ER (FP) PO ONE (10:22)
[2022-03-12] MEDS ORDERED: MAGNESIUM 2GM/50ML STERILE WATER IVPB IVPB ONE (10:22)
[2022-03-12] MEDS: ALPRAZolam 1 MG TABLET PO PRN (11:15)
[2022-03-12] MEDS: ACETAMINOPHEN 1000 MG/100 ML BAG IVPB PRN (16:57)
[2022-03-13] MEDS: ALPRAZolam 1 MG TABLET PO PRN ×2 (00:16→22:16)
[2022-03-13] MEDS: NAFCILLIN - 2 GM in DEXTROSE 5%-WATER 100 ML IVPB SCH ×6 (01:01→22:15)
[2022-03-13] MEDS: BACLOFEN 10 MG TABLET (FP) PO SCH ×3 (05:10→22:14)
[2022-03-13] MEDS: GABAPENTIN 100 MG CAPSULE PO SCH ×2 (05:10→14:51)
[2022-03-13] MEDS: FERROUS SO4 325 MG TABLET (FP) PO SCH ×2 (08:23→08:24)
[2022-03-13] MEDS ORDERED: LIDOCAINE HCL 2% 100 MG/5 ML DISP.SYRIN ONE (08:46)
[2022-03-13] MEDS ORDERED: ONDANSETRON 4 MG/2 ML VIAL ONE (08:46)
[2022-03-13] MEDS ORDERED: KETOROLAC TROMETHAMINE 30 MG/1 ML VIAL ONE (08:46)
[2022-03-13] MEDS ORDERED: DEXAMETHASONE SOD PHOSPHATE 4 MG/1 ML VIAL ONE (08:46)
[2022-03-13] MEDS ORDERED: MIDAZOLAM HCL 2 MG/2 ML SINGLE DOSE VIAL ONE (08:47)
[2022-03-13] MEDS ORDERED: PROPOFOL 40 ML ONE (08:47)
[2022-03-13] MEDS: ESCITALOPRAM OXALATE 10 MG TABLET PO SCH (09:05)
[2022-03-13] MEDS: FAMOTIDINE 20 MG TABLET PO SCH (09:05)
[2022-03-13] MEDS: amLODIPine BESYLATE 5 MG TABLET (FP) PO SCH (09:05)
[2022-03-13] MEDS: PANTOPRAZOLE 40 MG TABLET PO SCH (09:05)
[2022-03-13 09:27] LABS: HEMATOCRIT 26.4 % (32.4-45.2); HEMOGLOBIN 8.9 GM/dL (10.7-15.3); MCH 26.7 pg (25.7-33.7); MCHC 33.8 g/dl (32.0-36.0); MEAN CELL VOLUME 78.9 fl (80-96); MEAN PLT VOLUME 7.6 fl (7.5-11.1); PLATELET COUNT 455 10^3/uL (134-434); RBC 3.35 M/mm3 (3.60-5.2); RDW 17.4 % (11.6-15.6); WHITE BLOOD COUNT 6.7 K/mm3 (4.0-10.0)
[2022-03-13] MEDS ORDERED: SUCCINYLCHOLINE CHLORIDE 200 MG/10 ML SYRINGE ONE (09:41)
[2022-03-13] MEDS ORDERED: ROCURONIUM BROMIDE 50 MG/5 ML SYRINGE ONE ×2 (09:43→12:39)
[2022-03-13 10:01] LABS: CALCIUM 9.6 mg/dL (8.5-10.1)
[2022-03-13 10:04] LABS: BLOOD UREA NITROGEN 8.5 mg/dL (7-18)
[2022-03-13 10:05] LABS: CREATININE 0.5 mg/dL (0.55-1.3); PHOSPHOROUS 3.2 mg/dL (2.5-4.9)
[2022-03-13] MEDS ORDERED: ceFAZolin SODIUM 1 GM VIAL IVPB ONE (10:15)
[2022-03-13] MEDS ORDERED: VANCOMYCIN 1,000 MG VIAL (RESTRICTED TO ID ONLY) IVPB ONE ×2 (10:15→12:50)
[2022-03-13] MEDS ORDERED: NAFCILLIN IVPB ONE ×2 (10:15)
[2022-03-13] MEDS ORDERED: VANCOMYCIN 1,000 MG VIAL (RESTRICTED TO ID ONLY) ONE ×3 (10:30→13:05)
[2022-03-13] MEDS ORDERED: ceFAZolin SODIUM 1 GM VIAL ONE (10:30)
[2022-03-13] MEDS ORDERED: HYDROmorphone HCl 2 MG/ML VIAL ONE ×3 (11:24→20:13)
[2022-03-13] MEDS ORDERED: THROMBIN (BOVINE) 20,000 UNIT VIAL TP ONE (11:45)
[2022-03-13] MEDS ORDERED: THROMBIN (BOVINE) 5,000 UNIT VIAL TP ONE (11:58)
[2022-03-13] MEDS ORDERED: NEOSTIGMINE METHYLSULFATE 0.5 MG/1 ML - 10 ML MDV ONE (13:44)
[2022-03-13] MEDS ORDERED: GLYCOPYRROLATE 0.2 MG/1 ML VIAL ONE (13:44)
[2022-03-13] MEDS ORDERED: MAGNESIUM HYDROX 2400MG/30ML ORAL SUSPENSION 30 ML CUP PO PRN ×3 (14:38→20:08)
[2022-03-13] MEDS ORDERED: ONDANSETRON 4 MG/2 ML VIAL IVPUSH PRN ×4 (14:38→20:08)
[2022-03-13] MEDS ORDERED: MAG HYDROX/AL HYDROX/SIMETH 30 ML UNIT-DOSE CUP PO PRN ×3 (14:38→20:08)
[2022-03-13] MEDS ORDERED: LACTATED RINGERS SOLUTION 1,000 ML IV SCH ×4 (14:45→20:08)
[2022-03-13] MEDS ORDERED: oxyCODONE HCL 5 MG TABLET PO PRN ×3 (14:48→20:08)
[2022-03-13] MEDS ORDERED: ALPRAZolam 1 MG TABLET PO PRN (14:51)
[2022-03-13] MEDS ORDERED: POLYETHYLENE GLYCOL (HEALTHYLAX) 3350 17 GM PACKET PO PRN ×2 (14:51→20:08)
[2022-03-13] MEDS ORDERED: PROMETHAZINE HCL 25 MG/1 ML VIAL IVPUSH PRN ×2 (14:58→20:08)
[2022-03-13] MEDS ORDERED: HYDROmorphone HCL CARPU-JECT 2 MG/1 ML DISP.SYRIN IVPUSH PRN ×2 (14:58→20:08)
[2022-03-13] MEDS ORDERED: ACETAMINOPHEN 1000 MG/100 ML BAG IVPB ONE (14:59)
[2022-03-13] MEDS: HYDROmorphone HCL CARPU-JECT 2 MG/1 ML DISP.SYRIN IVPUSH PRN ×4 (15:40→17:10)
[2022-03-13] MEDS ORDERED: FERROUS SO4 325 MG TABLET (FP) PO SCH (17:30)
[2022-03-13 18:12] LABS: BASO % 0.2 % (0-2.0); EOS % 0.2 % (0-4.5); HEMATOCRIT 32.2 % (32.4-45.2); HEMOGLOBIN 11.1 GM/dL (10.7-15.3); LYMPH % 8.2 % (8-40); MCH 28.7 pg (25.7-33.7); MCHC 34.6 g/dl (32.0-36.0); MEAN CELL VOLUME 82.9 fl (80-96); MEAN PLT VOLUME 7.7 fl (7.5-11.1); MONO % 11.1 % (3.8-10.2); NEUT % 80.3 % (42.8-82.8); PLATELET COUNT 305 10^3/uL (134-434); RBC 3.88 M/mm3 (3.60-5.2); RDW 15.3 % (11.6-15.6); WHITE BLOOD COUNT 10.4 K/mm3 (4.0-10.0)
[2022-03-13] MEDS ORDERED: HYDROmorphone HCL CARPU-JECT 2 MG/1 ML DISP.SYRIN SQ PRN (20:07)
[2022-03-13] MEDS ORDERED: ASPIRIN 81 MG CHEWABLE TABLETS PO SCH (22:00)
[2022-03-13] MEDS ORDERED: CHLORHEXIDINE GLUCONATE 4% CLEANSER FOR DECOLONIZATION TP SCH (22:00)
[2022-03-13] MEDS ORDERED: CELECOXIB 100 MG CAPSULE PO SCH (22:00)
[2022-03-13] MEDS ORDERED: SENNOSIDES/DOCUSATE COMBO (SENNA PLUS) TABLET (UD) PO SCH ×2 (22:00)
[2022-03-13] MEDS ORDERED: MUPIROCIN 2% TOPICAL OINTMENT FOR DECOLONIZATION NS SCH (22:00)
[2022-03-13] MEDS ORDERED: BACLOFEN 10 MG TABLET (FP) PO SCH (22:00)
[2022-03-13] MEDS ORDERED: ASPIRIN COATED 81 MG TABLET.EC PO SCH (22:00)
[2022-03-13] MEDS: CELECOXIB 100 MG CAPSULE PO SCH (22:14)
[2022-03-13] MEDS: ASPIRIN COATED 81 MG TABLET.EC PO SCH (22:14)
[2022-03-13] MEDS: SENNOSIDES/DOCUSATE COMBO (SENNA PLUS) TABLET (UD) PO SCH (22:15)
[2022-03-13] MEDS: ACETAMINOPHEN 500 MG TABLET (FP) PO SCH (22:15)
[2022-03-13] MEDS: oxyCODONE HCL 5 MG TABLET PO PRN (23:26)
[2022-03-14] MEDS: HYDROmorphone HCl 2 MG/ML VIAL SQ PRN ×2 (01:16→08:23)
[2022-03-14] MEDS: NAFCILLIN - 2 GM in DEXTROSE 5%-WATER 100 ML IVPB SCH ×6 (01:21→23:37)
[2022-03-14] MEDS: oxyCODONE HCL 5 MG TABLET PO PRN (03:49)
[2022-03-14] MEDS ORDERED: HYDROmorphone HCl 2 MG/ML VIAL IVPUSH ONE ×2 (04:24→10:04)
[2022-03-14] MEDS: BACLOFEN 10 MG TABLET (FP) PO SCH ×3 (06:18→23:39)
[2022-03-14 07:24] LABS: BASO % 0.4 % (0-2.0); EOS % 0.8 % (0-4.5); HEMATOCRIT 27.6 % (32.4-45.2); HEMOGLOBIN 9.6 GM/dL (10.7-15.3); LYMPH % 10.1 % (8-40); MCH 28.5 pg (25.7-33.7); MCHC 34.7 g/dl (32.0-36.0); MEAN CELL VOLUME 82.1 fl (80-96); MEAN PLT VOLUME 7.6 fl (7.5-11.1); MONO % 11.7 % (3.8-10.2); PLATELET COUNT 275 10^3/uL (134-434); RBC 3.36 M/mm3 (3.60-5.2); RDW 15.7 % (11.6-15.6); WHITE BLOOD COUNT 8.8 K/mm3 (4.0-10.0)
[2022-03-14 07:46] LABS: CALCIUM 8.5 mg/dL (8.5-10.1)
[2022-03-14 07:47] LABS: BLOOD UREA NITROGEN 10.7 mg/dL (7-18); MAGNESIUM 1.5 mg/dL (1.8-2.4)
[2022-03-14 07:50] LABS: CREATININE 0.6 mg/dL (0.55-1.3); PHOSPHOROUS 4.3 mg/dL (2.5-4.9)
[2022-03-14] MEDS ORDERED: MUPIROCIN 2% TOPICAL OINTMENT FOR DECOLONIZATION NS SCH (10:00)
[2022-03-14] MEDS ORDERED: PANTOPRAZOLE 40 MG TABLET PO SCH (10:00)
[2022-03-14] MEDS ORDERED: amLODIPine BESYLATE 5 MG TABLET (FP) PO SCH (10:00)
[2022-03-14] MEDS ORDERED: ESCITALOPRAM OXALATE 10 MG TABLET PO SCH (10:00)
[2022-03-14] MEDS ORDERED: FAMOTIDINE 20 MG TABLET PO SCH ×2 (10:00)
[2022-03-14] MEDS ORDERED: HYDROmorphone HCl 2 MG/ML VIAL IVPUSH PRN ×2 (10:03→10:24)
[2022-03-14] MEDS: ASPIRIN COATED 81 MG TABLET.EC PO SCH ×2 (10:35→23:37)
[2022-03-14] MEDS: ACETAMINOPHEN 500 MG TABLET (FP) PO SCH ×2 (10:36→23:39)
[2022-03-14] MEDS: SENNOSIDES/DOCUSATE COMBO (SENNA PLUS) TABLET (UD) PO SCH ×2 (10:37→23:38)
[2022-03-14] MEDS: PANTOPRAZOLE 40 MG TABLET PO SCH (10:37)
[2022-03-14] MEDS: amLODIPine BESYLATE 5 MG TABLET (FP) PO SCH (10:37)
[2022-03-14] MEDS: ESCITALOPRAM OXALATE 10 MG TABLET PO SCH (10:38)
[2022-03-14] MEDS ORDERED: MAGNESIUM 2GM/50ML STERILE WATER IVPB IVPB ONE (10:50)
[2022-03-14] MEDS: FERROUS SO4 325 MG TABLET (FP) PO SCH ×2 (11:13→17:49)
[2022-03-14] MEDS: HYDROmorphone *PCA* 10MG/50ML DISP.SYRIN PCA SCH (11:30)
[2022-03-14 14:15] VITALS: BMI 22.6
[2022-03-14] MEDS: CELECOXIB 100 MG CAPSULE PO SCH ×2 (17:48→23:40)
[2022-03-14] MEDS: ALPRAZolam 1 MG TABLET PO PRN (20:19)
[2022-03-14] MEDS ORDERED: CHLORHEXIDINE GLUCONATE 4% CLEANSER FOR DECOLONIZATION TP SCH (22:00)
[2022-03-15] MEDS: NAFCILLIN - 2 GM in DEXTROSE 5%-WATER 100 ML IVPB SCH ×6 (01:35→22:14)
[2022-03-15] MEDS: BACLOFEN 10 MG TABLET (FP) PO SCH ×3 (06:28→22:18)
[2022-03-15] MEDS: FERROUS SO4 325 MG TABLET (FP) PO SCH ×2 (10:19→18:56)
[2022-03-15] MEDS: amLODIPine BESYLATE 5 MG TABLET (FP) PO SCH (10:22)
[2022-03-15] MEDS: ESCITALOPRAM OXALATE 10 MG TABLET PO SCH (10:22)
[2022-03-15] MEDS: ASPIRIN COATED 81 MG TABLET.EC PO SCH ×2 (10:22→22:18)
[2022-03-15] MEDS: SENNOSIDES/DOCUSATE COMBO (SENNA PLUS) TABLET (UD) PO SCH ×2 (10:22→22:21)
[2022-03-15] MEDS: ACETAMINOPHEN 500 MG TABLET (FP) PO SCH ×2 (10:23→22:18)
[2022-03-15] MEDS: PANTOPRAZOLE 40 MG TABLET PO SCH (10:23)
[2022-03-15] MEDS: HYDROmorphone *PCA* 10MG/50ML DISP.SYRIN PCA SCH (10:24)
[2022-03-15] MEDS: CELECOXIB 100 MG CAPSULE PO SCH ×2 (10:36→22:50)
[2022-03-15 12:14] LABS: HEMATOCRIT 24.8 % (32.4-45.2); HEMOGLOBIN 8.6 GM/dL (10.7-15.3); MCH 28.6 pg (25.7-33.7); MCHC 34.5 g/dl (32.0-36.0); MEAN CELL VOLUME 82.7 fl (80-96); MEAN PLT VOLUME 7.8 fl (7.5-11.1); PLATELET COUNT 290 10^3/uL (134-434); RDW 16.2 % (11.6-15.6)
[2022-03-15 12:18] LABS: BASO % 0.3 % (0-2.0); EOS % 1.4 % (0-4.5); HEMATOCRIT 24.7 % (32.4-45.2); HEMOGLOBIN 8.6 GM/dL (10.7-15.3); LYMPH % 11.2 % (8-40); MCH 28.9 pg (25.7-33.7); MEAN CELL VOLUME 82.6 fl (80-96); MEAN PLT VOLUME 7.6 fl (7.5-11.1); MONO % 7.9 % (3.8-10.2); NEUT % 79.2 % (42.8-82.8); PLATELET COUNT 290 10^3/uL (134-434); RBC 2.99 M/mm3 (3.60-5.2); RDW 16.2 % (11.6-15.6); WHITE BLOOD COUNT 8.1 K/mm3 (4.0-10.0)
[2022-03-15 12:39] LABS: CALCIUM 8.7 mg/dL (8.5-10.1)
[2022-03-15 12:40] LABS: BLOOD UREA NITROGEN 14.8 mg/dL (7-18); MAGNESIUM 1.9 mg/dL (1.8-2.4)
[2022-03-15 12:43] LABS: CREATININE 0.9 mg/dL (0.55-1.3)
[2022-03-15 12:44] LABS: TOT PROT 5.8 g/dl (6.4-8.2)
[2022-03-15 12:45] LABS: BILIRUBIN,TOTAL 0.8 mg/dL (0.2-1)
[2022-03-15 12:46] LABS: ALBUMIN 1.6 g/dl (3.4-5.0)
[2022-03-16] MEDS: NAFCILLIN - 2 GM in DEXTROSE 5%-WATER 100 ML IVPB SCH ×7 (02:16→21:56)
[2022-03-16] MEDS: HYDROmorphone *PCA* 10MG/50ML DISP.SYRIN PCA SCH ×3 (05:57→15:31)
[2022-03-16] MEDS: BACLOFEN 10 MG TABLET (FP) PO SCH ×3 (06:10→21:55)
[2022-03-16 09:06] LABS: BASO % 0.5 % (0-2.0); EOS % 1.5 % (0-4.5); HEMOGLOBIN 8.3 GM/dL (10.7-15.3); LYMPH % 12.3 % (8-40); MCH 28.4 pg (25.7-33.7); MCHC 34.4 g/dl (32.0-36.0); MEAN CELL VOLUME 82.4 fl (80-96); MEAN PLT VOLUME 7.7 fl (7.5-11.1); MONO % 9.7 % (3.8-10.2); PLATELET COUNT 320 10^3/uL (134-434); RBC 2.91 M/mm3 (3.60-5.2); RDW 16.3 % (11.6-15.6); WHITE BLOOD COUNT 7.2 K/mm3 (4.0-10.0)
[2022-03-16 09:25] LABS: CHLORIDE 108 mmol/L (98-107); SODIUM 143 mmol/L (136-145)
[2022-03-16 09:26] LABS: CALCIUM 8.7 mg/dL (8.5-10.1)
[2022-03-16 09:27] LABS: BLOOD UREA NITROGEN 11.8 mg/dL (7-18); CO2 27 mmol/L (21-32); GLUCOSE,RANDOM 90 mg/dL (74-106); MAGNESIUM 1.7 mg/dL (1.8-2.4)
[2022-03-16 09:30] LABS: CREATININE 0.6 mg/dL (0.55-1.3)
[2022-03-16] MEDS ORDERED: ONDANSETRON 4 MG/2 ML VIAL IVPUSH PRN (09:43)
[2022-03-16] MEDS ORDERED: POLYETHYLENE GLYCOL (HEALTHYLAX) 3350 17 GM PACKET PO PRN (09:43)
[2022-03-16] MEDS ORDERED: MAG HYDROX/AL HYDROX/SIMETH 30 ML UNIT-DOSE CUP PO PRN (09:43)
[2022-03-16] MEDS ORDERED: MAGNESIUM HYDROX 2400MG/30ML ORAL SUSPENSION 30 ML CUP PO PRN (09:43)
[2022-03-16] MEDS ORDERED: HYDROmorphone HCl 2 MG/ML VIAL IVPUSH PRN (09:43)
[2022-03-16] MEDS ORDERED: oxyCODONE HCL 5 MG TABLET PO PRN ×2 (09:43)
[2022-03-16 09:45] LABS: ANION GAP 9 MMOL/L (8-16)
[2022-03-16] MEDS: FERROUS SO4 325 MG TABLET (FP) PO SCH ×2 (09:49→17:30)
[2022-03-16] MEDS: KCL 10 MEQ IVPB 10 MEQ/100 ML INFUS.BAG IVPB SCH ×3 (10:50→15:31)
[2022-03-16] MEDS: CELECOXIB 100 MG CAPSULE PO SCH ×2 (13:04→21:55)
[2022-03-16] MEDS: ASPIRIN COATED 81 MG TABLET.EC PO SCH ×2 (13:04→21:55)
[2022-03-16] MEDS: ESCITALOPRAM OXALATE 10 MG TABLET PO SCH (13:04)
[2022-03-16] MEDS: SENNOSIDES/DOCUSATE COMBO (SENNA PLUS) TABLET (UD) PO SCH ×2 (13:05→21:55)
[2022-03-16] MEDS: PANTOPRAZOLE 40 MG TABLET PO SCH (13:05)
[2022-03-16] MEDS: ACETAMINOPHEN 500 MG TABLET (FP) PO SCH ×2 (13:05→21:55)
[2022-03-16] MEDS: amLODIPine BESYLATE 5 MG TABLET (FP) PO SCH (13:05)
[2022-03-16] MEDS: ALPRAZolam 1 MG TABLET PO PRN (16:00)
[2022-03-17] MEDS: HYDROmorphone *PCA* 10MG/50ML DISP.SYRIN PCA SCH ×2 (00:24→17:46)
[2022-03-17] MEDS: NAFCILLIN - 2 GM in DEXTROSE 5%-WATER 100 ML IVPB SCH ×6 (02:10→22:23)
[2022-03-17] MEDS: BACLOFEN 10 MG TABLET (FP) PO SCH ×3 (06:23→22:24)
[2022-03-17 11:08] LABS: HEMATOCRIT 26.7 % (32.4-45.2); HEMOGLOBIN 8.8 GM/dL (10.7-15.3); MCH 27.8 pg (25.7-33.7); MCHC 32.9 g/dl (32.0-36.0); MEAN CELL VOLUME 84.5 fl (80-96); MEAN PLT VOLUME 7.1 fl (7.5-11.1); PLATELET COUNT 368 10^3/uL (134-434); RBC 3.16 M/mm3 (3.60-5.2); RDW 17.1 % (11.6-15.6); WHITE BLOOD COUNT 7.2 K/mm3 (4.0-10.0)
[2022-03-17] MEDS: FERROUS SO4 325 MG TABLET (FP) PO SCH ×2 (11:30→17:49)
[2022-03-17] MEDS: SENNOSIDES/DOCUSATE COMBO (SENNA PLUS) TABLET (UD) PO SCH ×2 (11:31→22:24)
[2022-03-17] MEDS: ACETAMINOPHEN 500 MG TABLET (FP) PO SCH ×2 (11:31→22:50)
[2022-03-17 11:48] LABS: ANISOCYTOSIS 0; BLOOD UREA NITROGEN 12.4 mg/dL (7-18); CALCIUM 8.9 mg/dL (8.5-10.1); CREATININE 0.8 mg/dL (0.55-1.3); HELMET CELLS 0; HOWELL-JOLLY BODIES 0; MACROCYTOSIS 0; MAGNESIUM 1.7 mg/dL (1.8-2.4); OVALOCYTE 0; ROULEAU 0; SICKELED CELLS 0; TARGET CELLS 0; TEAR DROP CELLS 0; TOXIC GRANULATION 0
[2022-03-17] MEDS: POTASSIUM CHLORIDE ORAL LIQUID 20 MEQ/15 ML PO SCH ×2 (13:59→22:24)
[2022-03-17] MEDS: CELECOXIB 100 MG CAPSULE PO SCH ×2 (16:04→22:24)
[2022-03-17] MEDS: PANTOPRAZOLE 40 MG TABLET PO SCH (16:05)
[2022-03-17] MEDS: ESCITALOPRAM OXALATE 10 MG TABLET PO SCH (16:05)
[2022-03-17] MEDS: ASPIRIN COATED 81 MG TABLET.EC PO SCH ×2 (16:05→22:26)
[2022-03-17] MEDS: amLODIPine BESYLATE 5 MG TABLET (FP) PO SCH (16:05)
[2022-03-18] MEDS: ALPRAZolam 1 MG TABLET PO PRN (00:19)
[2022-03-18] MEDS: NAFCILLIN - 2 GM in DEXTROSE 5%-WATER 100 ML IVPB SCH ×6 (02:58→21:56)
[2022-03-18] MEDS: BACLOFEN 10 MG TABLET (FP) PO SCH ×3 (06:47→21:51)
[2022-03-18] MEDS: ASPIRIN COATED 81 MG TABLET.EC PO SCH ×2 (10:28→21:52)
[2022-03-18] MEDS: ESCITALOPRAM OXALATE 10 MG TABLET PO SCH (10:29)
[2022-03-18] MEDS: ACETAMINOPHEN 500 MG TABLET (FP) PO SCH (10:29)
[2022-03-18] MEDS: PANTOPRAZOLE 40 MG TABLET PO SCH (10:30)
[2022-03-18] MEDS: FERROUS SO4 325 MG TABLET (FP) PO SCH ×2 (10:30→17:31)
[2022-03-18] MEDS: SENNOSIDES/DOCUSATE COMBO (SENNA PLUS) TABLET (UD) PO SCH ×2 (10:30→21:52)
[2022-03-18] MEDS: amLODIPine BESYLATE 5 MG TABLET (FP) PO SCH (10:30)
[2022-03-18] MEDS: CELECOXIB 100 MG CAPSULE PO SCH ×2 (10:31→21:55)
[2022-03-18] MEDS: POTASSIUM CHLORIDE ORAL LIQUID 20 MEQ/15 ML PO SCH ×2 (10:31→21:53)
[2022-03-18] MEDS ORDERED: MAGNESIUM OXIDE 400 MG TABLET (FP) PO ONE (12:37)
[2022-03-18] MEDS: HYDROmorphone *PCA* 10MG/50ML DISP.SYRIN PCA SCH (13:29)
[2022-03-18 16:34] LABS: CALCIUM 8.5 mg/dL (8.5-10.1); MAGNESIUM 1.5 mg/dL (1.8-2.4)
[2022-03-18 16:35] LABS: BLOOD UREA NITROGEN 11.2 mg/dL (7-18)
[2022-03-18 16:37] LABS: CREATININE 0.7 mg/dL (0.55-1.3)
[2022-03-18] MEDS ORDERED: ACETAMINOPHEN 1000 MG/100 ML BAG IVPB PRN (18:41)
[2022-03-19] MEDS: NAFCILLIN - 2 GM in DEXTROSE 5%-WATER 100 ML IVPB SCH ×6 (04:33→21:03)
[2022-03-19] MEDS: FERROUS SO4 325 MG TABLET (FP) PO SCH ×2 (09:06→17:35)
[2022-03-19] MEDS: ASPIRIN COATED 81 MG TABLET.EC PO SCH ×2 (09:08→21:04)
[2022-03-19] MEDS: ESCITALOPRAM OXALATE 10 MG TABLET PO SCH (09:09)
[2022-03-19] MEDS: SENNOSIDES/DOCUSATE COMBO (SENNA PLUS) TABLET (UD) PO SCH ×2 (09:10→21:04)
[2022-03-19] MEDS: amLODIPine BESYLATE 5 MG TABLET (FP) PO SCH (09:10)
[2022-03-19] MEDS: PANTOPRAZOLE 40 MG TABLET PO SCH (09:11)
[2022-03-19] MEDS: CELECOXIB 100 MG CAPSULE PO SCH ×2 (11:27→21:04)
[2022-03-19] MEDS: BACLOFEN 10 MG TABLET (FP) PO SCH ×3 (11:30→21:04)
[2022-03-19 11:47] LABS: HEMATOCRIT 25.9 % (32.4-45.2); HEMOGLOBIN 8.7 GM/dL (10.7-15.3); MCHC 33.7 g/dl (32.0-36.0); MEAN CELL VOLUME 83.1 fl (80-96); MEAN PLT VOLUME 7.3 fl (7.5-11.1); PLATELET COUNT 402 10^3/uL (134-434); RBC 3.12 M/mm3 (3.60-5.2); RDW 16.8 % (11.6-15.6); WHITE BLOOD COUNT 7.4 K/mm3 (4.0-10.0)
[2022-03-19 12:01] LABS: CALCIUM 8.6 mg/dL (8.5-10.1)
[2022-03-19 12:02] LABS: BLOOD UREA NITROGEN 10.6 mg/dL (7-18); MAGNESIUM 1.6 mg/dL (1.8-2.4)
[2022-03-19 12:05] LABS: CREATININE 0.5 mg/dL (0.55-1.3)
[2022-03-19] MEDS ORDERED: MAGNESIUM 2GM/50ML STERILE WATER IVPB IVPB ONE (12:10)
[2022-03-19] MEDS ORDERED: POTASSIUM CHLORIDE ORAL LIQUID 20 MEQ/15 ML PO ONE (12:10)
[2022-03-19] MEDS: ALPRAZolam 1 MG TABLET PO PRN (15:34)
[2022-03-19] MEDS: oxyCODONE HCL 5 MG TABLET PO PRN (17:35)
[2022-03-19] MEDS: ACETAMINOPHEN 325 MG TABLET (FP) PO PRN (17:36)
[2022-03-20] MEDS: NAFCILLIN - 2 GM in DEXTROSE 5%-WATER 100 ML IVPB SCH ×6 (03:44→21:01)
[2022-03-20] MEDS: ALPRAZolam 1 MG TABLET PO PRN ×2 (06:26→20:04)
[2022-03-20] MEDS: BACLOFEN 10 MG TABLET (FP) PO SCH ×3 (06:26→21:01)
[2022-03-20] MEDS: oxyCODONE HCL 5 MG TABLET PO PRN ×2 (06:26→13:57)
[2022-03-20] MEDS: ACETAMINOPHEN 325 MG TABLET (FP) PO PRN ×2 (06:27→12:29)
[2022-03-20] MEDS: FERROUS SO4 325 MG TABLET (FP) PO SCH ×2 (10:20→17:56)
[2022-03-20] MEDS: CELECOXIB 100 MG CAPSULE PO SCH ×2 (10:21→21:01)
[2022-03-20] MEDS: ASPIRIN COATED 81 MG TABLET.EC PO SCH ×2 (10:22→21:01)
[2022-03-20] MEDS: ESCITALOPRAM OXALATE 10 MG TABLET PO SCH (10:22)
[2022-03-20] MEDS: amLODIPine BESYLATE 5 MG TABLET (FP) PO SCH (10:23)
[2022-03-20] MEDS: PANTOPRAZOLE 40 MG TABLET PO SCH (10:24)
[2022-03-20] MEDS: SENNOSIDES/DOCUSATE COMBO (SENNA PLUS) TABLET (UD) PO SCH ×2 (10:24→21:04)
[2022-03-20] MEDS: MINERAL OIL/PET HY-PHL TOPICAL OINTMENT 454 GM JAR TP SCH (21:10)
[2022-03-21] MEDS: NAFCILLIN - 2 GM in DEXTROSE 5%-WATER 100 ML IVPB SCH ×6 (02:30→21:27)
[2022-03-21] MEDS: BACLOFEN 10 MG TABLET (FP) PO SCH ×3 (06:13→21:29)
[2022-03-21] MEDS: oxyCODONE HCL 5 MG TABLET PO PRN (06:41)
[2022-03-21] MEDS: ACETAMINOPHEN 325 MG TABLET (FP) PO PRN (06:42)
[2022-03-21] MEDS: FERROUS SO4 325 MG TABLET (FP) PO SCH ×2 (08:18→17:29)
[2022-03-21] MEDS: ALPRAZolam 1 MG TABLET PO PRN ×2 (08:26→21:28)
[2022-03-21] MEDS: ESCITALOPRAM OXALATE 10 MG TABLET PO SCH (10:10)
[2022-03-21] MEDS: amLODIPine BESYLATE 5 MG TABLET (FP) PO SCH (10:10)
[2022-03-21] MEDS: PANTOPRAZOLE 40 MG TABLET PO SCH (10:11)
[2022-03-21] MEDS: MINERAL OIL/PET HY-PHL TOPICAL OINTMENT 454 GM JAR TP SCH ×2 (10:11→21:38)
[2022-03-21] MEDS: CELECOXIB 100 MG CAPSULE PO SCH ×2 (10:11→21:29)
[2022-03-21] MEDS: ASPIRIN COATED 81 MG TABLET.EC PO SCH ×2 (10:11→21:28)
[2022-03-21] MEDS: SENNOSIDES/DOCUSATE COMBO (SENNA PLUS) TABLET (UD) PO SCH (10:11)
[2022-03-21] MEDS ORDERED: ONDANSETRON 4 MG/2 ML VIAL IVPUSH PRN ×2 (11:08→15:39)
[2022-03-21] MEDS ORDERED: LACTATED RINGERS SOLUTION 1,000 ML IV SCH (11:15)
[2022-03-21] MEDS ORDERED: ROPIVACAINE HCL 0.5% 30ML VIAL ONE (13:11)
[2022-03-21] MEDS ORDERED: LIDOCAINE HCL 2% (20ML MULTI-DOSE VIAL) ONE (13:11)
[2022-03-21] MEDS ORDERED: MIDAZOLAM HCL 2 MG/2 ML SINGLE DOSE VIAL ONE (13:16)
[2022-03-21] MEDS ORDERED: PROPOFOL 20 ML ONE ×2 (13:25→15:24)
[2022-03-21] MEDS ORDERED: TRANEXAMIC ACID 1000 MG/10 ML VIAL ONE (14:26)
[2022-03-21] MEDS ORDERED: MAGNESIUM HYDROX 2400MG/30ML ORAL SUSPENSION 30 ML CUP PO PRN (15:39)
[2022-03-21] MEDS ORDERED: POLYETHYLENE GLYCOL (HEALTHYLAX) 3350 17 GM PACKET PO PRN (15:39)
[2022-03-21] MEDS ORDERED: MAG HYDROX/AL HYDROX/SIMETH 30 ML UNIT-DOSE CUP PO PRN (15:39)
[2022-03-21] MEDS: LACTATED RINGERS SOLUTION 1,000 ML IV SCH ×2 (16:40→20:28)
[2022-03-21] MEDS: ONDANSETRON 4 MG/2 ML VIAL IVPUSH PRN (20:22)
[2022-03-21] MEDS ORDERED: SENNOSIDES/DOCUSATE COMBO (SENNA PLUS) TABLET (UD) PO SCH (22:00)
[2022-03-22] MEDS: oxyCODONE HCL 5 MG TABLET PO PRN ×3 (00:29→14:25)
[2022-03-22] MEDS: NAFCILLIN - 2 GM in DEXTROSE 5%-WATER 100 ML IVPB SCH ×3 (02:21→10:31)
[2022-03-22] MEDS: ONDANSETRON 4 MG/2 ML VIAL IVPUSH PRN ×2 (05:02→21:29)
[2022-03-22] MEDS: BACLOFEN 10 MG TABLET (FP) PO SCH ×3 (05:02→21:34)
[2022-03-22] MEDS: FERROUS SO4 325 MG TABLET (FP) PO SCH ×2 (07:24→18:43)
[2022-03-22] MEDS: ACETAMINOPHEN 325 MG TABLET (FP) PO PRN ×2 (07:24→14:26)
[2022-03-22 08:32] LABS: HEMATOCRIT 20.8 % (32.4-45.2); HEMOGLOBIN 7.2 GM/dL (10.7-15.3); MCH 28.3 pg (25.7-33.7); MCHC 34.5 g/dl (32.0-36.0); MEAN PLT VOLUME 7.3 fl (7.5-11.1); PLATELET COUNT 401 10^3/uL (134-434); RBC 2.54 M/mm3 (3.60-5.2); WHITE BLOOD COUNT 7.6 K/mm3 (4.0-10.0)
[2022-03-22 08:52] LABS: CHLORIDE 100 mmol/L (98-107); SODIUM 137 mmol/L (136-145)
[2022-03-22 08:59] LABS: BLOOD UREA NITROGEN 5.2 mg/dL (7-18); CALCIUM 8.1 mg/dL (8.5-10.1); CO2 26 mmol/L (21-32); GLUCOSE,RANDOM 111 mg/dL (74-106)
[2022-03-22 09:03] LABS: CREATININE 0.6 mg/dL (0.55-1.3)
[2022-03-22 09:07] LABS: ANION GAP 11 MMOL/L (8-16)
[2022-03-22] MEDS ORDERED: MAGNESIUM 2GM/50ML STERILE WATER IVPB IVPB ONE ×2 (10:30→14:00)
[2022-03-22] MEDS: KCL 10 MEQ IVPB 10 MEQ/100 ML INFUS.BAG IVPB SCH ×3 (10:31→14:25)
[2022-03-22] MEDS: amLODIPine BESYLATE 5 MG TABLET (FP) PO SCH (10:31)
[2022-03-22] MEDS: ASPIRIN COATED 81 MG TABLET.EC PO SCH ×2 (10:31→21:34)
[2022-03-22] MEDS: MINERAL OIL/PET HY-PHL TOPICAL OINTMENT 454 GM JAR TP SCH ×2 (10:32→21:36)
[2022-03-22] MEDS: PANTOPRAZOLE 40 MG TABLET PO SCH (10:32)
[2022-03-22] MEDS: ESCITALOPRAM OXALATE 10 MG TABLET PO SCH (10:32)
[2022-03-22] MEDS: CELECOXIB 100 MG CAPSULE PO SCH ×2 (10:38→21:36)
[2022-03-22] MEDS: ALPRAZolam 1 MG TABLET PO PRN (14:26)
[2022-03-22] MEDS: POTASSIUM CHLORIDE ORAL LIQUID 20 MEQ/15 ML PO SCH ×2 (14:27→21:35)
[2022-03-22] MEDS: LACTATED RINGERS SOLUTION 1,000 ML IV SCH (18:39)
[2022-03-22] MEDS: VANCOMYCIN 250 MG/5 ML ORAL SOLUTION PO SCH (18:43)
[2022-03-22] MEDS: CEFAZOLIN SODIUM 2 GM in DEXTROSE 5%-WATER 100 ML IVPB SCH (18:44)
[2022-03-23] MEDS: oxyCODONE HCL 5 MG TABLET PO PRN ×4 (00:40→18:10)
[2022-03-23] MEDS: ALPRAZolam 1 MG TABLET PO PRN ×3 (00:41→21:57)
[2022-03-23] MEDS: VANCOMYCIN 250 MG/5 ML ORAL SOLUTION PO SCH ×5 (01:16→23:02)
[2022-03-23] MEDS: CEFAZOLIN SODIUM 2 GM in DEXTROSE 5%-WATER 100 ML IVPB SCH ×3 (01:37→18:12)
[2022-03-23] MEDS: BACLOFEN 10 MG TABLET (FP) PO SCH ×3 (06:18→21:57)
[2022-03-23] MEDS: POTASSIUM CHLORIDE ORAL LIQUID 20 MEQ/15 ML PO SCH (06:19)
[2022-03-23] MEDS: LACTATED RINGERS SOLUTION 1,000 ML IV SCH ×3 (08:58→21:58)
[2022-03-23] MEDS: ASPIRIN COATED 81 MG TABLET.EC PO SCH ×2 (09:44→21:57)
[2022-03-23] MEDS: ONDANSETRON 4 MG/2 ML VIAL IVPUSH PRN (09:44)
[2022-03-23] MEDS: amLODIPine BESYLATE 5 MG TABLET (FP) PO SCH (09:44)
[2022-03-23] MEDS: ESCITALOPRAM OXALATE 10 MG TABLET PO SCH (09:44)
[2022-03-23] MEDS: PANTOPRAZOLE 40 MG TABLET PO SCH (09:44)
[2022-03-23] MEDS: FERROUS SO4 325 MG TABLET (FP) PO SCH ×2 (09:44→18:11)
[2022-03-23] MEDS: CELECOXIB 100 MG CAPSULE PO SCH ×2 (09:47→21:57)
[2022-03-23] MEDS: MINERAL OIL/PET HY-PHL TOPICAL OINTMENT 454 GM JAR TP SCH ×2 (09:47→21:57)
[2022-03-23 10:41] LABS: ALBUMIN 1.6 g/dl (3.4-5.0); BLOOD UREA NITROGEN 5.8 mg/dL (7-18); CALCIUM 8.5 mg/dL (8.5-10.1); MAGNESIUM 1.4 mg/dL (1.8-2.4)
[2022-03-23 10:44] LABS: CREATININE 0.6 mg/dL (0.55-1.3); PHOSPHOROUS 1.8 mg/dL (2.5-4.9)
[2022-03-23 10:45] LABS: BILIRUBIN,TOTAL 0.8 mg/dL (0.2-1)
[2022-03-23 10:46] LABS: TOT PROT 6.2 g/dl (6.4-8.2)
[2022-03-23] MEDS: ACETAMINOPHEN 325 MG TABLET (FP) PO PRN ×2 (12:15→18:09)
[2022-03-23] MEDS ORDERED: MAGNESIUM 2GM/50ML STERILE WATER IVPB IVPB ONE (12:33)
[2022-03-23 16:32] LABS: BASO % 0.9 % (0-2.0); EOS % 0.6 % (0-4.5); HEMATOCRIT 25.8 % (32.4-45.2); LYMPH % 16.5 % (8-40); MCH 28.7 pg (25.7-33.7); MCHC 34.8 g/dl (32.0-36.0); MEAN CELL VOLUME 82.4 fl (80-96); MEAN PLT VOLUME 7.1 fl (7.5-11.1); MONO % 12.7 % (3.8-10.2); NEUT % 69.3 % (42.8-82.8); PLATELET COUNT 406 10^3/uL (134-434); RBC 3.14 M/mm3 (3.60-5.2); RDW 16.2 % (11.6-15.6); WHITE BLOOD COUNT 11.2 K/mm3 (4.0-10.0)
[2022-03-24] MEDS: CEFAZOLIN SODIUM 2 GM in DEXTROSE 5%-WATER 100 ML IVPB SCH ×3 (02:08→17:49)
[2022-03-24] MEDS: ACETAMINOPHEN 325 MG TABLET (FP) PO PRN ×3 (02:09→17:49)
[2022-03-24] MEDS: oxyCODONE HCL 5 MG TABLET PO PRN ×4 (02:09→23:46)
[2022-03-24] MEDS: BACLOFEN 10 MG TABLET (FP) PO SCH ×3 (06:10→21:44)
[2022-03-24] MEDS: VANCOMYCIN 250 MG/5 ML ORAL SOLUTION PO SCH ×4 (06:10→23:47)
[2022-03-24] MEDS: amLODIPine BESYLATE 5 MG TABLET (FP) PO SCH (10:16)
[2022-03-24] MEDS: FERROUS SO4 325 MG TABLET (FP) PO SCH ×2 (10:16→17:49)
[2022-03-24] MEDS: ASPIRIN COATED 81 MG TABLET.EC PO SCH ×2 (10:16→21:44)
[2022-03-24] MEDS: ESCITALOPRAM OXALATE 10 MG TABLET PO SCH (10:16)
[2022-03-24] MEDS: MINERAL OIL/PET HY-PHL TOPICAL OINTMENT 454 GM JAR TP SCH ×2 (10:17→21:51)
[2022-03-24] MEDS: PANTOPRAZOLE 40 MG TABLET PO SCH (10:17)
[2022-03-24] MEDS: CELECOXIB 100 MG CAPSULE PO SCH ×2 (10:17→21:52)
[2022-03-24] MEDS: ALPRAZolam 1 MG TABLET PO PRN ×2 (11:18→23:47)
[2022-03-24] MEDS: LACTATED RINGERS SOLUTION 1,000 ML IV SCH ×2 (13:24→16:04)
[2022-03-24] MEDS: ONDANSETRON 4 MG/2 ML VIAL IVPUSH PRN (13:25)
[2022-03-24] MEDS: LACTOBACILLUS ACIDOPHILUS 1 TABLET PO SCH (22:30)
[2022-03-25] MEDS: CEFAZOLIN SODIUM 2 GM in DEXTROSE 5%-WATER 100 ML IVPB SCH ×3 (01:52→18:47)
[2022-03-25] MEDS: oxyCODONE HCL 5 MG TABLET PO PRN ×3 (07:01→18:42)
[2022-03-25] MEDS: ONDANSETRON 4 MG/2 ML VIAL IVPUSH PRN ×2 (07:02→13:01)
[2022-03-25] MEDS: LACTOBACILLUS ACIDOPHILUS 1 TABLET PO SCH ×3 (07:02→21:57)
[2022-03-25] MEDS: BACLOFEN 10 MG TABLET (FP) PO SCH ×3 (07:02→21:57)
[2022-03-25] MEDS: VANCOMYCIN 250 MG/5 ML ORAL SOLUTION PO SCH ×3 (07:05→18:48)
[2022-03-25 08:41] LABS: HEMATOCRIT 23.8 % (32.4-45.2); HEMOGLOBIN 8.1 GM/dL (10.7-15.3); MCH 28.2 pg (25.7-33.7); MCHC 33.9 g/dl (32.0-36.0); MEAN CELL VOLUME 83.2 fl (80-96); MEAN PLT VOLUME 7.3 fl (7.5-11.1); PLATELET COUNT 462 10^3/uL (134-434); RBC 2.86 M/mm3 (3.60-5.2); RDW 17.2 % (11.6-15.6); WHITE BLOOD COUNT 9.8 K/mm3 (4.0-10.0)
[2022-03-25 08:49] LABS: CALCIUM 8.6 mg/dL (8.5-10.1); MAGNESIUM 1.4 mg/dL (1.8-2.4)
[2022-03-25 08:50] LABS: BLOOD UREA NITROGEN 6.5 mg/dL (7-18)
[2022-03-25 08:53] LABS: CREATININE 0.5 mg/dL (0.55-1.3)
[2022-03-25] MEDS: ASPIRIN COATED 81 MG TABLET.EC PO SCH ×2 (10:43→21:57)
[2022-03-25] MEDS: ESCITALOPRAM OXALATE 10 MG TABLET PO SCH (10:43)
[2022-03-25] MEDS: PANTOPRAZOLE 40 MG TABLET PO SCH (10:43)
[2022-03-25] MEDS: FERROUS SO4 325 MG TABLET (FP) PO SCH ×2 (10:45→18:42)
[2022-03-25] MEDS ORDERED: MAGNESIUM 2GM/50ML STERILE WATER IVPB IVPB SCH (10:45)
[2022-03-25] MEDS: amLODIPine BESYLATE 5 MG TABLET (FP) PO SCH (10:45)
[2022-03-25] MEDS: CELECOXIB 100 MG CAPSULE PO SCH ×2 (10:46→22:03)
[2022-03-25] MEDS: MINERAL OIL/PET HY-PHL TOPICAL OINTMENT 454 GM JAR TP SCH ×2 (10:53→21:58)
[2022-03-25] MEDS ORDERED: MELATONIN 1 MG TABLET PO PRN (11:21)
[2022-03-25] MEDS: MAGNESIUM 2GM/50ML STERILE WATER IVPB IVPB SCH ×2 (12:40→13:52)
[2022-03-25] MEDS: ACETAMINOPHEN 325 MG TABLET (FP) PO PRN ×2 (12:55→18:46)
[2022-03-25] MEDS: ALPRAZolam 1 MG TABLET PO PRN (20:45)
[2022-03-26] MEDS: oxyCODONE HCL 5 MG TABLET PO PRN ×3 (00:43→14:08)
[2022-03-26] MEDS: VANCOMYCIN 250 MG/5 ML ORAL SOLUTION PO SCH ×3 (00:45→11:43)
[2022-03-26] MEDS: CEFAZOLIN SODIUM 2 GM in DEXTROSE 5%-WATER 100 ML IVPB SCH ×3 (02:07→11:43)
[2022-03-26] MEDS: ACETAMINOPHEN 325 MG TABLET (FP) PO PRN ×2 (04:15→14:09)
[2022-03-26] MEDS: LACTOBACILLUS ACIDOPHILUS 1 TABLET PO SCH ×2 (06:04→14:08)
[2022-03-26] MEDS: BACLOFEN 10 MG TABLET (FP) PO SCH ×2 (06:04→14:08)
[2022-03-26] MEDS: FERROUS SO4 325 MG TABLET (FP) PO SCH (07:54)
[2022-03-26 09:17] LABS: HEMATOCRIT 23.2 % (32.4-45.2); HEMOGLOBIN 7.9 GM/dL (10.7-15.3); MCH 28.5 pg (25.7-33.7); MCHC 34.2 g/dl (32.0-36.0); MEAN CELL VOLUME 83.4 fl (80-96); MEAN PLT VOLUME 7.4 fl (7.5-11.1); PLATELET COUNT 456 10^3/uL (134-434); RBC 2.78 M/mm3 (3.60-5.2); RDW 16.4 % (11.6-15.6); WHITE BLOOD COUNT 8.9 K/mm3 (4.0-10.0)
[2022-03-26] MEDS: PANTOPRAZOLE 40 MG TABLET PO SCH (09:45)
[2022-03-26] MEDS: ASPIRIN COATED 81 MG TABLET.EC PO SCH (09:45)
[2022-03-26] MEDS: ALPRAZolam 1 MG TABLET PO PRN (09:45)
[2022-03-26] MEDS: ESCITALOPRAM OXALATE 10 MG TABLET PO SCH (09:45)
[2022-03-26] MEDS: amLODIPine BESYLATE 5 MG TABLET (FP) PO SCH (09:45)
[2022-03-26] MEDS: MINERAL OIL/PET HY-PHL TOPICAL OINTMENT 454 GM JAR TP SCH (09:46)
[2022-03-26] MEDS: CELECOXIB 100 MG CAPSULE PO SCH (09:46)
[2022-03-26 09:53] LABS: BLOOD UREA NITROGEN 11.3 mg/dL (7-18); CALCIUM 8.8 mg/dL (8.5-10.1); MAGNESIUM 1.8 mg/dL (1.8-2.4)
[2022-03-26 09:57] LABS: CREATININE 0.6 mg/dL (0.55-1.3)
[2022-03-26 17:57] VITALS: BP 138/79; PULSE 88; RESP 18; TEMP 98.5
== END 2022-03-26 18:09 | DRG 464 ==
LOC: FER 19:17 → FM/S 22:45 → UNDOADMOB 03-03 00:04 → OBSVTOIN 03-05 13:21 → UNDODISIN 03-06 17:02 → J6S 03-07 22:14 → JICU 03-13 23:16 → J8W 03-14 21:17
PROVIDERS: ADMIT Hospitalist
PROC: 30233N1 Transfusion of Nonautologous Red Blood Cells into Peripheral Vein, Percutaneous Approach (ICD-10-PCS; 2022-03-12)
PROC: 0SP90JZ Removal of Synthetic Substitute from Right Hip Joint, Open Approach (ICD-10-PCS; 2022-03-13)
PROC: 3E0U029 Introduction of Other Anti-infective into Joints, Open Approach (ICD-10-PCS; 2022-03-13)
PROC: 0SR90J9 Replacement of Right Hip Joint with Synthetic Substitute, Cemented, Open Approach (ICD-10-PCS; principal; 2022-03-13 09:00)
PROC: 0JBF0ZZ Excision of Left Upper Arm Subcutaneous Tissue and Fascia, Open Approach (ICD-10-PCS; 2022-03-26)
PROC: 0PBD0ZX Excision of Left Humeral Head, Open Approach, Diagnostic (ICD-10-PCS; 2022-03-26)
PROC: 02HV33Z Insertion of Infusion Device into Superior Vena Cava, Percutaneous Approach (ICD-10-PCS; 2022-03-26)
PROC: B518ZZA Fluoroscopy of Superior Vena Cava, Guidance (ICD-10-PCS; 2022-03-26)
DX: T84.7XXA Infection and inflammatory reaction due to other internal orthopedic prosthetic devices, implants and grafts, initial encounter (principal); E87.1 Hypo-osmolality and hyponatremia; I10 Essential (primary) hypertension; E78.5 Hyperlipidemia, unspecified; M06.9 Rheumatoid arthritis, unspecified; E83.42 Hypomagnesemia; D50.9 Iron deficiency anemia, unspecified; M25.551 Pain in right hip; M19.012 Primary osteoarthritis, left shoulder; R53.1 Weakness; M25.412 Effusion, left shoulder; E87.6 Hypokalemia; F31.9 Bipolar disorder, unspecified; G89.29 Other chronic pain; M16.11 Unilateral primary osteoarthritis, right hip; F41.8 Other specified anxiety disorders; Z96.643 Presence of artificial hip joint, bilateral; Y84.8 Other medical procedures as the cause of abnormal reaction of the patient, or of later complication, without mention of misadventure at the time of the procedure
CPT/HCPCS: 0241U-QW; 36415; 36430; 36569; 71045-TC-FY; 71275-TC; 73030-TC-LT-FY; 73030-TC-RT-FY; 73200-TC-RT; 73502-TC-RT-FY; 73700-TC-RT; 73718-TC-RT; 76882-TC-RT-FY; 77001-TC-FY; 78315-TC; 80048; 80053; 81003; 81015; 82272; 82550; 82607; 82728; 82746; 83540; 83550; 83735; 84100; 84443; 84484; 85025; 85027; 85045; 85379; 85610; 85651; 85730; 86140; 86850; 86900; 86901; 86922; 87040; 87045; 87046; 87070; 87075; 87086; 87102; 87116; 87186; 87205; 87206; 87210; 87324; 87449; 88304-TC; 88311-TC; 93005; 93306-TC; 93971-TC; 94760; 97116-GP; 97162-GP; 99285-25; A9503; C1751; C9803-CS; G0378; J0475; P9058; Q9967; U0003; U0005

== ENCOUNTER 2023-02-26 08:59 | Inpatient (IN) | payer BC ==
[2023-02-14 08:41] VITALS: BMI 22.6
[2023-02-26] MEDS ORDERED: MIDAZOLAM HCL 2 MG/2 ML SINGLE DOSE VIAL ONE ×3 (11:33→17:15)
[2023-02-26] MEDS ORDERED: ROPIVACAINE HCL 0.5% 30ML VIAL ONE (12:04)
[2023-02-26] MEDS ORDERED: ACETAMINOPHEN INJECTION 100 ML IVPB ONE (12:04)
[2023-02-26] MEDS ORDERED: BUPIVACAINE HCL/PF 0.5% (5MG/ML) 10 ML VIAL ONE (12:04)
[2023-02-26] MEDS ORDERED: HYDROmorphone HCL/PF 1 MG/ML VIAL ONE ×2 (12:17→14:29)
[2023-02-26] MEDS ORDERED: ONDANSETRON 4 MG/2 ML VIAL IVPUSH PRN ×2 (12:56→17:57)
[2023-02-26] MEDS ORDERED: oxyCODONE HCL 5 MG TABLET PO PRN ×4 (12:56→19:24)
[2023-02-26] MEDS ORDERED: HYDROmorphone HCL/PF 1 MG/ML VIAL IVPB PRN (12:59)
[2023-02-26] MEDS ORDERED: TRANEXAMIC ACID 1000 MG/10 ML VIAL ONE (13:11)
[2023-02-26] MEDS ORDERED: DEXAMETHASONE SOD PHOSPHATE 4 MG/1 ML VIAL ONE (14:03)
[2023-02-26] MEDS ORDERED: ceFAZolin SODIUM 1 GM VIAL ONE (14:03)
[2023-02-26] MEDS ORDERED: VANCOMYCIN 1,000 MG VIAL (RESTRICTED TO ID ONLY) ONE (14:03)
[2023-02-26] MEDS ORDERED: ONDANSETRON 4 MG/2 ML VIAL ONE (14:03)
[2023-02-26] MEDS ORDERED: BUPIVACAINE LIPOSOME/PF (EXPAREL) 266 MG/20 ML VIAL ONE (14:15)
[2023-02-26] MEDS ORDERED: BUPIVACAINE HCL/PF 0.25% (2.5MG/ML) 10 ML VIAL ONE (14:16)
[2023-02-26] MEDS ORDERED: ROCURONIUM BROMIDE 50 MG/5 ML SYRINGE ONE (14:56)
[2023-02-26] MEDS ORDERED: ePHEDrine SULFATE 50 MG/1 ML AMPULE ONE (15:16)
[2023-02-26] MEDS ORDERED: BUPIVACAINE LIPOSOME/PF (EXPAREL) 266 MG/20 ML VIAL NR ONE (16:30)
[2023-02-26] MEDS ORDERED: BUPIVACAINE HCL/PF 0.25% (2.5MG/ML) 10 ML VIAL IJ ONE (16:30)
[2023-02-26] MEDS ORDERED: MAG HYDROX/AL HYDROX/SIMETH 30 ML UNIT-DOSE CUP PO PRN (17:57)
[2023-02-26] MEDS ORDERED: CELECOXIB 200 MG CAPSULE PO ONE (17:57)
[2023-02-26] MEDS ORDERED: MAGNESIUM HYDROX 2400MG/30ML ORAL SUSPENSION 30 ML CUP PO PRN (17:57)
[2023-02-26] MEDS ORDERED: VANCOMYCIN 1 GM/200 ML PREMIX BAG (RESTRICTED TO ID ONLY) IVPB SCH (18:00)
[2023-02-26] MEDS ORDERED: LACTATED RINGERS SOLUTION 1,000 ML IV SCH (18:00)
[2023-02-26] MEDS ORDERED: MORPHINE SULFATE 10 MG/1 ML *VIAL ONE ×2 (18:17→18:50)
[2023-02-26] MEDS: oxyCODONE HCL 5 MG TABLET PO PRN (19:30)
[2023-02-26] MEDS: HYDROmorphone HCl 2 MG/ML VIAL IVPB PRN (20:55)
[2023-02-26] MEDS ORDERED: ASPIRIN 325 MG TABLET PO SCH (22:00)
[2023-02-26] MEDS: CEFAZOLIN SODIUM 2 GM in DEXTROSE 5%-WATER 100 ML IVPB SCH (22:03)
[2023-02-26] MEDS: EZETIMIBE 10 MG TABLET (FP) PO SCH (22:04)
[2023-02-26] MEDS: GABAPENTIN 300 MG CAPSULE PO SCH (22:04)
[2023-02-26] MEDS: amLODIPine BESYLATE 5 MG TABLET (FP) PO SCH (22:05)
[2023-02-26] MEDS: SENNOSIDES/DOCUSATE COMBO (SENNA PLUS) TABLET (UD) PO SCH (22:05)
[2023-02-27] MEDS: HYDROmorphone HCl 2 MG/ML VIAL IVPB PRN ×2 (00:08→21:20)
[2023-02-27] MEDS: ACETAMINOPHEN 500 MG TABLET (FP) PO SCH ×6 (02:24→23:40)
[2023-02-27] MEDS: CEFAZOLIN SODIUM 2 GM in DEXTROSE 5%-WATER 100 ML IVPB SCH ×2 (02:25→09:22)
[2023-02-27] MEDS: VANCOMYCIN 1 GM/200 ML PREMIX BAG (RESTRICTED TO ID ONLY) IVPB SCH ×2 (02:25→13:12)
[2023-02-27] MEDS: oxyCODONE HCL 5 MG TABLET PO PRN ×5 (06:31→23:41)
[2023-02-27] MEDS: LACTATED RINGERS SOLUTION 1,000 ML IV SCH ×2 (08:21→13:12)
[2023-02-27 09:02] LABS: HEMATOCRIT 26.7 % (32.4-45.2); HEMOGLOBIN 8.8 G/dL (10.7-15.3); MCH 30.1 pg (25.7-33.7); MCHC 33.1 g/dl (32.0-36.0); MEAN CELL VOLUME 91.1 fl (80-96); MEAN PLT VOLUME 9.2 fl (7.5-11.1); PLATELET COUNT 213.2 10^3/uL (134-434); RBC 2.93 10^6/uL (3.60-5.2); RDW 15.5 % (11.6-15.6); WHITE BLOOD COUNT 10.3 10^3/uL (4.0-10.8)
[2023-02-27 09:18] LABS: BLOOD UREA NITROGEN 17.1 mg/dl (7-18); CALCIUM 9.1 mg/dl (8.5-10.1); CREATININE 0.9 mg/dl (0.6-1.3); POTASSIUM 3.9 mmol/L (3.5-5.1)
[2023-02-27] MEDS: ASPIRIN 81 MG CHEWABLE TABLETS PO SCH ×2 (09:23→21:19)
[2023-02-27] MEDS: ESCITALOPRAM OXALATE 10 MG TABLET PO SCH (09:23)
[2023-02-27] MEDS: CELECOXIB 100 MG CAPSULE PO SCH ×2 (09:23→21:19)
[2023-02-27] MEDS: SENNOSIDES/DOCUSATE COMBO (SENNA PLUS) TABLET (UD) PO SCH ×2 (09:23→21:19)
[2023-02-27] MEDS: GABAPENTIN 300 MG CAPSULE PO SCH ×2 (09:23→21:19)
[2023-02-27] MEDS: PANTOPRAZOLE 40 MG TABLET PO SCH (09:24)
[2023-02-27] MEDS: FOLIC ACID 1 MG TABLET (FP) PO SCH (09:27)
[2023-02-27] MEDS: MULTIVITAMINS (DAILY MVI) TABLET (FP) PO SCH (09:27)
[2023-02-27] MEDS: MAGNESIUM OXIDE 400 MG TABLET (FP) PO SCH (09:33)
[2023-02-27] MEDS ORDERED: PATIENT'S OWN MEDICATION (NON-FORMULARY) (Potassium Citrate [Potassium] 99 MG Capsule) PO SCH (10:00)
[2023-02-27] MEDS ORDERED: PATIENT'S OWN MEDICATION (NON-FORMULARY) (Magnesium [Magnesium] 250 MG Tablet) PO SCH (10:00)
[2023-02-27] MEDS ORDERED: CELECOXIB 200 MG CAPSULE PO SCH (10:00)
[2023-02-27] MEDS ORDERED: oxyCODONE HCL 5 MG TABLET PO PRN (11:42)
[2023-02-27] MEDS: amLODIPine BESYLATE 5 MG TABLET (FP) PO SCH (21:19)
[2023-02-27] MEDS: EZETIMIBE 10 MG TABLET (FP) PO SCH (21:20)
[2023-02-28] MEDS: VANCOMYCIN 1 GM/200 ML PREMIX BAG (RESTRICTED TO ID ONLY) IVPB SCH ×2 (01:28→18:09)
[2023-02-28] MEDS: ACETAMINOPHEN 500 MG TABLET (FP) PO SCH ×4 (06:05→17:53)
[2023-02-28] MEDS: oxyCODONE HCL 5 MG TABLET PO PRN ×4 (06:05→20:25)
[2023-02-28 08:09] LABS: HEMATOCRIT 20.5 % (32.4-45.2); HEMOGLOBIN 6.8 G/dL (10.7-15.3); MCH 30.2 pg (25.7-33.7); MEAN CELL VOLUME 91.5 fl (80-96); MEAN PLT VOLUME 8.7 fl (7.5-11.1); RBC 2.24 10^6/uL (3.60-5.2); RDW 15.2 % (11.6-15.6); WHITE BLOOD COUNT 7.4 10^3/uL (4.0-10.8)
[2023-02-28 09:12] LABS: BLOOD UREA NITROGEN 16.2 mg/dl (7-18); CALCIUM 8.8 mg/dl (8.5-10.1); CREATININE 0.8 mg/dl (0.6-1.3); MAGNESIUM 1.4 mg/dL (1.8-2.4); POTASSIUM 3.3 mmol/L (3.5-5.1)
[2023-02-28] MEDS: SENNOSIDES/DOCUSATE COMBO (SENNA PLUS) TABLET (UD) PO SCH ×2 (10:04→21:17)
[2023-02-28] MEDS: ASPIRIN 81 MG CHEWABLE TABLETS PO SCH ×2 (10:04→21:16)
[2023-02-28] MEDS: FOLIC ACID 1 MG TABLET (FP) PO SCH (10:05)
[2023-02-28] MEDS: GABAPENTIN 300 MG CAPSULE PO SCH ×2 (10:06→21:16)
[2023-02-28] MEDS: PANTOPRAZOLE 40 MG TABLET PO SCH (10:06)
[2023-02-28] MEDS: ESCITALOPRAM OXALATE 10 MG TABLET PO SCH (10:07)
[2023-02-28] MEDS: MAGNESIUM OXIDE 400 MG TABLET (FP) PO SCH (10:07)
[2023-02-28] MEDS: CELECOXIB 100 MG CAPSULE PO SCH ×2 (10:08→21:16)
[2023-02-28] MEDS: MULTIVITAMINS (DAILY MVI) TABLET (FP) PO SCH (10:08)
[2023-02-28] MEDS ORDERED: IRON SUCROSE INJECTION 200 MG in SODIUM CHLORIDE 100 ML IVPB ONE (11:00)
[2023-02-28] MEDS ORDERED: MAGNESIUM SULF 50% (8.12 MEQ/2 ML-1 GM VIAL) IVPB ONE (14:23)
[2023-02-28] MEDS ORDERED: MAGNESIUM 1GM/D5W - 1 GM/100 ML IVPB IVPB ONE (14:45)
[2023-02-28] MEDS ORDERED: POTASSIUM CHLORIDE ORAL LIQUID 20 MEQ/15 ML PO ONE (14:45)
[2023-02-28] MEDS: LACTATED RINGERS SOLUTION 1,000 ML IV SCH (17:53)
[2023-02-28] MEDS: amLODIPine BESYLATE 5 MG TABLET (FP) PO SCH (21:17)
[2023-02-28] MEDS: EZETIMIBE 10 MG TABLET (FP) PO SCH (21:17)
[2023-02-28 22:50] VITALS: RESP 18
[2023-03-01] MEDS: ACETAMINOPHEN 500 MG TABLET (FP) PO SCH ×4 (03:27→11:05)
[2023-03-01] MEDS: oxyCODONE HCL 5 MG TABLET PO PRN ×3 (03:28→13:25)
[2023-03-01 05:00] LABS: HEMOGLOBIN 10.3 GM/dL (10.7-15.3); MCH 29.6 pg (25.7-33.7); MCHC 34.7 g/dl (32.0-36.0); MEAN CELL VOLUME 85.3 fl (80-96); MEAN PLT VOLUME 7.9 fl (7.5-11.1); PLATELET COUNT 138 10^3/uL (134-434); RDW 16.6 % (11.6-15.6); WHITE BLOOD COUNT 8.3 K/mm3 (4.0-10.0)
[2023-03-01 05:02] LABS: HEMATOCRIT 29.8 % (32.4-45.2)
[2023-03-01 05:50] LABS: POTASSIUM 3.9 mmol/L (3.5-5.1)
[2023-03-01 05:51] LABS: CALCIUM 9.2 mg/dL (8.5-10.1)
[2023-03-01 05:52] LABS: BLOOD UREA NITROGEN 11.2 mg/dL (7-18); MAGNESIUM 1.4 mg/dL (1.8-2.4)
[2023-03-01 05:55] LABS: CREATININE 0.7 mg/dL (0.55-1.3); PHOSPHOROUS 2.3 mg/dL (2.5-4.9)
[2023-03-01] MEDS: MULTIVITAMINS (DAILY MVI) TABLET (FP) PO SCH (09:42)
[2023-03-01] MEDS: FOLIC ACID 1 MG TABLET (FP) PO SCH (09:42)
[2023-03-01] MEDS: GABAPENTIN 300 MG CAPSULE PO SCH (09:42)
[2023-03-01] MEDS: ASPIRIN 81 MG CHEWABLE TABLETS PO SCH (09:42)
[2023-03-01] MEDS: ESCITALOPRAM OXALATE 10 MG TABLET PO SCH (09:43)
[2023-03-01] MEDS: PANTOPRAZOLE 40 MG TABLET PO SCH (09:43)
[2023-03-01] MEDS: MAGNESIUM OXIDE 400 MG TABLET (FP) PO SCH (09:43)
[2023-03-01] MEDS: SENNOSIDES/DOCUSATE COMBO (SENNA PLUS) TABLET (UD) PO SCH (09:43)
[2023-03-01] MEDS: CELECOXIB 100 MG CAPSULE PO SCH (09:43)
[2023-03-01 10:08] VITALS: BP 130/57; PULSE 79; TEMP 98
== END 2023-03-01 17:45 | disposition home or self-care (01) | DRG 467 ==
LOC: FM/S 08:59 → EDSTATUS 10:30 → FM/S 20:19
PROVIDERS: ADMIT Orthopaedic Surgery Orthopaedic Surgery of the Spine; ATTEND Orthopaedic Surgery Orthopaedic Surgery of the Spine
PROC: 0QP604Z Removal of Internal Fixation Device from Right Upper Femur, Open Approach (ICD-10-PCS; 2023-02-26)
PROC: 0QB60ZZ Excision of Right Upper Femur, Open Approach (ICD-10-PCS; 2023-02-26)
PROC: 0SR903Z Replacement of Right Hip Joint with Ceramic Synthetic Substitute, Open Approach (ICD-10-PCS; 2023-02-26)
PROC: 0SP Lower Joints, Removal (ICD-10-PCS; 2023-02-26)
PROC: 0SB90ZX Excision of Right Hip Joint, Open Approach, Diagnostic (ICD-10-PCS; 2023-02-26)
PROC: 0SW90JZ Revision of Synthetic Substitute in Right Hip Joint, Open Approach (ICD-10-PCS; principal; 2023-02-26 14:26)
PROC: 30233N1 Transfusion of Nonautologous Red Blood Cells into Peripheral Vein, Percutaneous Approach (ICD-10-PCS; 2023-02-28)
DX: T84.7XXA Infection and inflammatory reaction due to other internal orthopedic prosthetic devices, implants and grafts, initial encounter (principal); D62 Acute posthemorrhagic anemia; I10 Essential (primary) hypertension; E78.5 Hyperlipidemia, unspecified; F41.8 Other specified anxiety disorders; Y83.9 Surgical procedure, unspecified as the cause of abnormal reaction of the patient, or of later complication, without mention of misadventure at the time of the procedure
CPT/HCPCS: 36415; 36430; 73502-TC-RT-FY; 80048; 83735; 84100; 85027; 86850; 86900; 86901; 86922; 88307-TC; 88331-TC; 88332; 94760; 97010-GP; 97116-GP; 97162-GP; C1713; C1776; C1889; J1756; P9058

== ENCOUNTER 2024-02-19 00:05 | Inpatient (IN) | payer BC ==
[2024-02-19 02:46] LABS: BASO % 0.6 % (0-2.0); EOS % 0.3 % (0-4.5); HEMATOCRIT 39.1 % (32.4-45.2); HEMOGLOBIN 13.2 GM/dL (10.7-15.3); LYMPH % 17.6 % (8-40); MCHC 33.7 g/dl (32.0-36.0); MEAN PLT VOLUME 8.6 fl (7.5-11.1); MONO % 3.4 % (3.8-10.2); NEUT % 78.1 % (42.8-82.8); PLATELET COUNT 201 10^3/uL (134-434); RBC 4.25 M/mm3 (3.60-5.2); RDW 13.7 % (11.6-15.6); WHITE BLOOD COUNT 10.8 K/mm3 (4.0-10.0)
[2024-02-19 03:12] LABS: INR 0.93 (0.83-1.09); PROTHROMBIN TIME (PATIENT) 10.5 SEC (9.7-13.0)
[2024-02-19 03:13] LABS: POTASSIUM 4.1 mmol/L (3.5-5.1)
[2024-02-19 03:15] LABS: ALBUMIN 4.8 g/dl (3.4-5.0); BLOOD UREA NITROGEN 14.6 mg/dL (7-18); CALCIUM 10.6 mg/dL (8.5-10.1)
[2024-02-19 03:18] LABS: CREATININE 0.9 mg/dL (0.55-1.3)
[2024-02-19 03:20] LABS: BILIRUBIN,TOTAL 0.6 mg/dL (0.2-1); TOT PROT 7.6 g/dl (6.4-8.2)
[2024-02-19] MEDS ORDERED: ALPRAZolam 0.25 MG TABLET ONE (03:41)
[2024-02-19] MEDS: ALPRAZolam 0.25 MG TABLET PO ONE (03:44)
[2024-02-19] MEDS ORDERED: DOCUSATE SODIUM 100 MG CAPSULE (FP) PO PRN (04:52)
[2024-02-19] MEDS ORDERED: HEPARIN INFUSION - 25,000 UNITS/500 ML INFUS.BAG IVPB ONE (04:57)
[2024-02-19] MEDS ORDERED: ACETAMINOPHEN 1000 MG/100 ML BAG IVPB PRN (04:59)
[2024-02-19] MEDS: HEPARIN INFUSION - 25,000 UNITS/500 ML INFUS.BAG IVPB SCH (05:17)
[2024-02-19] MEDS ORDERED: oxyCODONE HCL 5 MG TABLET ONE (05:50)
[2024-02-19] MEDS: SODIUM CHLORIDE 500 ML IV STA ×2 (06:08→06:18)
[2024-02-19] MEDS: oxyCODONE HCL 5 MG TABLET PO ONE (06:33)
[2024-02-19] MEDS ORDERED: oxyCODONE HCL 5 MG TABLET PO PRN (07:10)
[2024-02-19 08:32] VITALS: BMI 25.4
[2024-02-19] MEDS: oxyCODONE HCL 5 MG TABLET PO PRN (10:57)
[2024-02-19] MEDS: ESCITALOPRAM OXALATE 10 MG TABLET PO SCH (10:58)
[2024-02-19] MEDS: amLODIPine BESYLATE 5 MG TABLET (FP) PO SCH (10:58)
[2024-02-19] MEDS: NYSTATIN POWDER 100,000 UNITS/GM - 15 GM TOPICAL POWDER TP SCH (11:03)
[2024-02-19] MEDS ORDERED: HEPARIN NA (PORCINE) 5,000 UNITS/ML 1ML VIAL IV PRN (13:20)
[2024-02-19 14:11] VITALS: RESP 18
[2024-02-19] MEDS: HEPARIN NA (PORCINE) 5,000 UNITS/ML 1ML VIAL IV PRN (14:42)
[2024-02-19] MEDS ORDERED: hydrOXYzine PAMOATE 25 MG CAPSULE (FP) PO ONE (16:37)
[2024-02-19] MEDS ORDERED: HEPARIN NA (PORCINE) 5,000 UNITS/ML 1ML VIAL IVPUSH PRN (16:52)
[2024-02-19] MEDS: hydrOXYzine PAMOATE 25 MG CAPSULE (FP) PO ONE (19:15)
[2024-02-19] MEDS ORDERED: amLODIPine BESYLATE 5 MG TABLET (FP) PO SCH (22:00)
[2024-02-19] MEDS: diphenhydrAMINE HCL 25 MG CAPSULE (FP) PO ONE (22:35)
[2024-02-20] MEDS ORDERED: ACETAMINOPHEN 325 MG TABLET (FP) PO PRN (04:52)
[2024-02-20] MEDS: ACETAMINOPHEN 325 MG TABLET (FP) PO PRN (05:42)
[2024-02-20] MEDS ORDERED: ENOXAPARIN NA (PORCINE) 80 MG/0.8 ML DISP.SYRIN SQ SCH (08:00)
[2024-02-20 08:44] LABS: HEMATOCRIT 39.7 % (32.4-45.2); MCH 30.5 pg (25.7-33.7); MCHC 32.8 g/dl (32.0-36.0); MEAN PLT VOLUME 8.8 fl (7.5-11.1); PLATELET COUNT 194.4 10^3/uL (134-434); RBC 4.27 10^6/uL (3.60-5.2); RDW 14.2 % (11.6-15.6); WHITE BLOOD COUNT 7.7 10^3/uL (4.0-10.8)
[2024-02-20 09:10] LABS: CALCIUM 9.7 mg/dl (8.5-10.1); CREATININE 0.8 mg/dl (0.6-1.3); POTASSIUM 3.8 mmol/L (3.5-5.1)
[2024-02-20] MEDS: APIXABAN 5 MG TABLET PO SCH (10:02)
[2024-02-20 10:10] VITALS: BP 128/58; PULSE 62; TEMP 98.1
[2024-02-20] MEDS ORDERED: REFRIGERATED ANITBIOTICS ONE (11:37)
== END 2024-02-20 15:02 | disposition home or self-care (01) | DRG 301 ==
LOC: FER 00:05 → FM/S 04:52 → OBSVTOIN 17:07
PROVIDERS: ADMIT Internal Medicine; ATTEND Internal Medicine
DX: I82.412 Acute embolism and thrombosis of left femoral vein (principal); I10 Essential (primary) hypertension; E78.5 Hyperlipidemia, unspecified; L89.312 Pressure ulcer of right buttock, stage 2; M06.9 Rheumatoid arthritis, unspecified; D64.9 Anemia, unspecified; F41.8 Other specified anxiety disorders; L30.4 Erythema intertrigo; Z96.641 Presence of right artificial hip joint
CPT/HCPCS: 36415; 71045-TC-FY; 80048; 80053; 82272; 83605; 85025; 85027; 85610; 85730; 93005; 93971-TC; 97116-GP; 97162-GP; 99285-25; G0378; J1644

== ENCOUNTER 2024-04-07 09:02 | Inpatient (IN) | payer BC, OTHER ==
[2024-04-07] MEDS ORDERED: ACETAMINOPHEN INJECTION 100 ML ONE (10:13)
[2024-04-07] MEDS ORDERED: morphine SULFATE 4 MG/ML VIAL ONE ×2 (10:13→15:42)
[2024-04-07 10:20] LABS: HEMATOCRIT 45.1 % (32.4-45.2); HEMOGLOBIN 14.7 G/dL (10.7-15.3); MCH 29.5 pg (25.7-33.7); MCHC 32.7 g/dl (32.0-36.0); MEAN CELL VOLUME 90.3 fl (80-96); MEAN PLT VOLUME 9.5 fl (7.5-11.1); PLATELET COUNT 99.1 10^3/uL (134-434); RBC 4.99 10^6/uL (3.60-5.2); RDW 13.7 % (11.6-15.6); WHITE BLOOD COUNT 14.8 10^3/uL (4.0-10.8)
[2024-04-07] MEDS: morphine CARPU-JECT 4 MG/1 ML DISP.SYRIN IVPUSH ONE ×2 (10:26→15:52)
[2024-04-07] MEDS: ACETAMINOPHEN 1000 MG/100 ML BAG IVPB ONE (10:26)
[2024-04-07] MEDS: SODIUM CHLORIDE 1,000 ML IV STA (10:26)
[2024-04-07 10:31] LABS: INR 1.27 (0.83-1.09); PROTHROMBIN TIME (PATIENT) 14.4 SEC (9.7-13.0)
[2024-04-07 10:33] LABS: ACTIVATED PTT 31.6 SECONDS (25.2-36.5)
[2024-04-07 10:41] LABS: ALBUMIN 4.4 g/dl (3.4-5.0); ALK PHOS 74 U/L (45-117); ANION GAP 14 mmol/L (4-13); BILIRUBIN,TOTAL 0.9 mg/dl (0.2-1); CHLORIDE 94 mmol/L (98-107); CO2 21 mmol/L (21-32); CREATININE 1.7 mg/dl (0.6-1.3); GLUCOSE,RANDOM 168 mg/dl (74-106); POTASSIUM 4.1 mmol/L (3.5-5.1); SGOT/AST 38 U/L (15-37); SGPT/ALT 38 U/L (7-52); SODIUM 129 mmol/L (136-145); TOT PROT 7.1 g/dl (6.4-8.2)
[2024-04-07 11:03] LABS: PLATELET ESTIMATE DECREASED
[2024-04-07 11:04] LABS: ANISOCYTOSIS 1+
[2024-04-07 11:10] LABS: VENOUS BASE EXCESS -5.6 mmol/L (-2-2); VENOUS O2 SATURATION 63.2 % (70-80); VENOUS PCO2 41.3 mmHg (38-52); VENOUS PH 7.31 (7.310-7.410)
[2024-04-07 11:25] LABS: N-TERMINAL BNP 1885.7 pg/ml (5-125)
[2024-04-07 11:48] LABS: LACTIC ACID 4.6 mmol/L (0.4-2.0)
[2024-04-07] MEDS ORDERED: HEPARIN NA (PORCINE) 5,000 UNITS/ML 1ML VIAL IVPUSH PRN ×2 (13:31)
[2024-04-07] MEDS ORDERED: HEPARIN NA (PORCINE) 5,000 UNITS/ML 1ML VIAL ONE (14:08)
[2024-04-07] MEDS ORDERED: HEPARIN INFUSION - 25,000 UNITS/500 ML INFUS.BAG IVPB ONE (14:08)
[2024-04-07] MEDS ORDERED: PIPERACILLIN/TAZOBACTAM 4.5 GM VIAL IVPB ONE (14:09)
[2024-04-07] MEDS ORDERED: VANCOMYCIN 1,000 MG VIAL (RESTRICTED TO ID ONLY) ONE (14:10)
[2024-04-07] MEDS: HEPARIN INFUSION - 25,000 UNITS/500 ML INFUS.BAG IVPB SCH (14:28)
[2024-04-07] MEDS: HEPARIN NA (PORCINE) 5,000 UNITS/ML 1ML VIAL IVPUSH ONE (14:28)
[2024-04-07] MEDS: PIPERACILLIN/TAZOB 4.5 GM 4.5 GM/100 ML BAG IVPB ONE (14:29)
[2024-04-07 14:30] LABS: EPITHELIAL CELLS 0-5 /hpf
[2024-04-07] MEDS: VANCOMYCIN 1,000 MG in DEXTROSE 5%-WATER - 250 ML IVPB ONE (14:30)
[2024-04-07 16:40] LABS: LACTIC ACID 3.5 mmol/L (0.4-2.0)
[2024-04-07] MEDS: LACTATED RINGERS SOLUTION 1,000 ML/1,000 ML INFUS.BAG IV STA (18:10)
[2024-04-07] MEDS: dilTIAZem HCL 50 MG/10 ML - 10 ML VIAL IVPUSH ONE (18:30)
[2024-04-07] MEDS: LACTATED RINGERS SOLUTION 1,000 ML/1,000 ML INFUS.BAG IV SCH (18:30)
[2024-04-07] MEDS: DIGOXIN 0.5 MG/2 ML AMPUL IVPUSH ONE (18:31)
[2024-04-07] MEDS: dilTIAZem HCL 25 MG/5 ML - 5 ML VIAL IVPUSH ONE (18:38)
[2024-04-07] MEDS: dilTIAZem HCL 25 MG/5 ML - 5 ML VIAL IVPUSH PRN (18:59)
[2024-04-07 20:07] VITALS: BMI 25.3
[2024-04-07] MEDS: oxyCODONE HCL 5 MG TABLET PO PRN (20:09)
[2024-04-07 20:20] LABS: LACTIC ACID 7.8 mmol/L (0.4-2.0)
[2024-04-07] MEDS: dilTIAZem HCL 30 MG TABLET PO SCH (20:25)
[2024-04-07] MEDS: EZETIMIBE 10 MG TABLET (FP) PO SCH (22:08)
[2024-04-08 08:13] LABS: INR 1.14 (0.83-1.09); PROTHROMBIN TIME (PATIENT) 13.1 SEC (9.7-13.0)
[2024-04-08 08:15] LABS: ACTIVATED PTT 75.8 SECONDS (25.2-36.5)
[2024-04-08 08:20] LABS: BASO % 0.3 % (0-2.0); EOS % 0.3 % (0-4.5); HEMATOCRIT 39.5 % (32.4-45.2); HEMOGLOBIN 13.4 GM/dL (10.7-15.3); MCH 30.4 pg (25.7-33.7); MCHC 33.9 g/dl (32.0-36.0); MEAN CELL VOLUME 89.7 fl (80-96); MEAN PLT VOLUME 10.9 fl (7.5-11.1); MONO % 4.1 % (3.8-10.2); NEUT % 92.3 % (42.8-82.8); PLATELET COUNT 48 10^3/uL (134-434); RBC 4.41 M/mm3 (3.60-5.2); RDW 13.3 % (11.6-15.6); WHITE BLOOD COUNT 13.4 K/mm3 (4.0-10.0)
[2024-04-08 08:53] LABS: LACTIC ACID 5.4 mmol/L (0.4-2.0)
[2024-04-08 09:03] LABS: ANISOCYTOSIS 0; MACROCYTOSIS 0
[2024-04-08 09:23] LABS: BLOOD UREA NITROGEN 33.3 mg/dL (7-18); CALCIUM 9.1 mg/dL (8.5-10.1); POTASSIUM 3.4 mmol/L (3.5-5.1)
[2024-04-08 09:30] LABS: CREATININE 1.1 mg/dL (0.55-1.3)
[2024-04-08] MEDS ORDERED: ENOXAPARIN NA (PORCINE) 80 MG/0.8 ML DISP.SYRIN SQ SCH (10:30)
[2024-04-08] MEDS: ENOXAPARIN NA (PORCINE) 80 MG/0.8 ML DISP.SYRIN SQ SCH (10:45)
[2024-04-08] MEDS: ESCITALOPRAM OXALATE 10 MG TABLET PO SCH (10:46)
[2024-04-08] MEDS: POTASSIUM CHLORIDE TABS 20 MEQ TABLET.ER (FP) PO ONE (11:48)
[2024-04-08 12:04] LABS: LACTIC ACID 4.5 mmol/L (0.4-2.0)
[2024-04-08 13:36] LABS: LACTIC ACID 3.6 mmol/L (0.4-2.0)
[2024-04-08] MEDS ORDERED: PIPERACILLIN/TAZOBACTAM 3.375 GM VIAL IVPB ONE (13:36)
[2024-04-08] MEDS: ACETAMINOPHEN 1000 MG/100 ML BAG IVPB SCH (15:21)
[2024-04-08] MEDS: PIPERACILLIN/TAZOB 3.375 GM 3.375 GM in DEXTROSE 5%-WATER - 50 ML IVPB SCH ×2 (15:21→15:22)
[2024-04-08] MEDS: LIDOCAINE 5% TOPICAL PATCH TP SCH (15:29)
[2024-04-08] MEDS: VANCOMYCIN/WATER FOR INJ (PEG) 1,000 MG/200 ML BAG IVPB SCH (15:30)
[2024-04-08 15:42] LABS: LACTIC ACID 5.1 mmol/L (0.4-2.0)
[2024-04-08 18:58] LABS: LACTIC ACID 4.8 mmol/L (0.4-2.0)
[2024-04-08] MEDS: LIDOCAINE PATCH REMOVAL MC SCH (21:49)
[2024-04-09 08:39] LABS: HEMATOCRIT 33.9 % (32.4-45.2); HEMOGLOBIN 11.6 GM/dL (10.7-15.3); MCH 30.5 pg (25.7-33.7); MCHC 34.2 g/dl (32.0-36.0); MEAN CELL VOLUME 89.2 fl (80-96); PLATELET COUNT 41 10^3/uL (134-434); RDW 13.5 % (11.6-15.6); WHITE BLOOD COUNT 10.8 K/mm3 (4.0-10.0)
[2024-04-09 08:53] LABS: POTASSIUM 3.1 mmol/L (3.5-5.1)
[2024-04-09 09:03] LABS: CALCIUM 8.9 mg/dL (8.5-10.1)
[2024-04-09 09:04] LABS: BLOOD UREA NITROGEN 23.7 mg/dL (7-18); MAGNESIUM 1.9 mg/dL (1.8-2.4)
[2024-04-09 09:07] LABS: CREATININE 0.6 mg/dL (0.55-1.3)
[2024-04-09 09:08] LABS: BILIRUBIN,TOTAL 0.7 mg/dL (0.2-1); TOT PROT 5.6 g/dl (6.4-8.2)
[2024-04-09 09:21] LABS: ANISOCYTOSIS 0; MACROCYTOSIS 0
[2024-04-09 09:34] LABS: ALBUMIN 2.8 g/dl (3.4-5.0)
[2024-04-09] MEDS: dilTIAZem HCL 60 MG TABLET PO SCH (11:17)
[2024-04-09] MEDS: ACETAMINOPHEN 325 MG TABLET (FP) PO ONE (16:53)
[2024-04-09] MEDS: POTASSIUM CHLORIDE ORAL LIQUID 20 MEQ/15 ML PO ONE ×2 (17:19→21:23)
[2024-04-09] MEDS: MAGNESIUM SULF 50% (8.12 MEQ/2 ML-1 GM VIAL) IVPB ONE (17:19)
[2024-04-09] MEDS: MULTIVITAMINS (DAILY MVI) TABLET (FP) PO SCH (23:07)
[2024-04-09] MEDS: ZINC SULFATE 220 MG CAPSULE (FP) PO SCH (23:07)
[2024-04-09] MEDS: ASCORBIC ACID 500 MG TABLET (FP) PO SCH (23:07)
[2024-04-10 10:13] LABS: POTASSIUM 3.2 mmol/L (3.5-5.1)
[2024-04-10 10:14] LABS: CALCIUM 9.1 mg/dL (8.5-10.1)
[2024-04-10 10:15] LABS: ALBUMIN 2.6 g/dl (3.4-5.0); BLOOD UREA NITROGEN 13.2 mg/dL (7-18)
[2024-04-10 10:17] LABS: CREATININE 0.4 mg/dL (0.55-1.3)
[2024-04-10 10:18] LABS: HEMATOCRIT 31.7 % (32.4-45.2); MCH 30.2 pg (25.7-33.7); MCHC 34.8 g/dl (32.0-36.0); MEAN CELL VOLUME 86.8 fl (80-96); MEAN PLT VOLUME 12.7 fl (7.5-11.1); PLATELET COUNT 52 10^3/uL (134-434); RBC 3.65 M/mm3 (3.60-5.2); RDW 13.5 % (11.6-15.6); WHITE BLOOD COUNT 15.1 K/mm3 (4.0-10.0)
[2024-04-10 10:20] LABS: BILIRUBIN,TOTAL 0.8 mg/dL (0.2-1); TOT PROT 5.2 g/dl (6.4-8.2)
[2024-04-10 10:48] LABS: ANISOCYTOSIS 0; HELMET CELLS 0; HOWELL-JOLLY BODIES 0; MACROCYTOSIS 0; OVALOCYTE 0; ROULEAU 0; SICKELED CELLS 0; TARGET CELLS 0; TEAR DROP CELLS 0; TOXIC GRANULATION 0
[2024-04-10] MEDS: CEFAZOLIN SODIUM 2 GM in DEXTROSE 5%-WATER 100 ML IVPB SCH (12:42)
[2024-04-10] MEDS: POTASSIUM CHLORIDE ORAL LIQUID 20 MEQ/15 ML PO ONE ×2 (18:05→21:09)
[2024-04-11] MEDS: MELATONIN 5 MG TABLETS PO ONE (00:08)
[2024-04-11] MEDS: ACETAMINOPHEN 325 MG TABLET (FP) PO ONE (01:04)
[2024-04-11 07:56] LABS: POTASSIUM 3.3 mmol/L (3.5-5.1)
[2024-04-11 08:01] LABS: CALCIUM 9.1 mg/dL (8.5-10.1)
[2024-04-11 08:02] LABS: ALBUMIN 2.6 g/dl (3.4-5.0); BLOOD UREA NITROGEN 11.9 mg/dL (7-18)
[2024-04-11 08:04] LABS: CREATININE 0.5 mg/dL (0.55-1.3)
[2024-04-11 08:06] LABS: BILIRUBIN,TOTAL 0.9 mg/dL (0.2-1); TOT PROT 5.1 g/dl (6.4-8.2)
[2024-04-11 08:22] LABS: HEMATOCRIT 32.1 % (32.4-45.2); MCH 29.7 pg (25.7-33.7); MCHC 34.3 g/dl (32.0-36.0); MEAN CELL VOLUME 86.6 fl (80-96); MEAN PLT VOLUME 11.7 fl (7.5-11.1); PLATELET COUNT 67 10^3/uL (134-434); RDW 13.5 % (11.6-15.6)
[2024-04-11 09:32] LABS: ANISOCYTOSIS 0; HELMET CELLS 0; HOWELL-JOLLY BODIES 0; MACROCYTOSIS 0; OVALOCYTE 0; ROULEAU 0; SICKELED CELLS 0; TARGET CELLS 0; TEAR DROP CELLS 0; TOXIC GRANULATION 0
[2024-04-11] MEDS: oxyCODONE HCL 5 MG TABLET PO PRN (16:00)
[2024-04-11] MEDS: LORazepam 0.5 MG TABLET PO PRN (21:11)
[2024-04-12] MEDS: ESCITALOPRAM OXALATE 20 MG TABLET PO SCH (10:03)
[2024-04-12] MEDS: POLYETHYLENE GLYCOL (HEALTHYLAX) 3350 17 GM PACKET PO SCH (12:23)
[2024-04-12 12:43] LABS: HEMATOCRIT 29.7 % (32.4-45.2); HEMOGLOBIN 10.3 GM/dL (10.7-15.3); MCHC 34.7 g/dl (32.0-36.0); MEAN CELL VOLUME 86.3 fl (80-96); MEAN PLT VOLUME 10.6 fl (7.5-11.1); PLATELET COUNT 118 10^3/uL (134-434); RBC 3.45 M/mm3 (3.60-5.2); RDW 13.6 % (11.6-15.6); WHITE BLOOD COUNT 25.5 K/mm3 (4.0-10.0)
[2024-04-12 13:01] LABS: CALCIUM 9.1 mg/dL (8.5-10.1)
[2024-04-12 13:02] LABS: ALBUMIN 2.5 g/dl (3.4-5.0); BLOOD UREA NITROGEN 14.6 mg/dL (7-18); MAGNESIUM 1.6 mg/dL (1.8-2.4)
[2024-04-12 13:04] LABS: CREATININE 0.6 mg/dL (0.55-1.3)
[2024-04-12 13:05] LABS: PHOSPHOROUS 1.7 mg/dL (2.5-4.9)
[2024-04-12 13:06] LABS: BILIRUBIN,TOTAL 0.6 mg/dL (0.2-1); TOT PROT 5.3 g/dl (6.4-8.2)
[2024-04-12] MEDS: LORazepam 0.5 MG TABLET PO PRN (14:11)
[2024-04-12] MEDS: MAGNESIUM SULF 50% (8.12 MEQ/2 ML-1 GM VIAL) IVPB ONE (18:33)
[2024-04-12] MEDS: POTASSIUM CHLORIDE ORAL LIQUID 20 MEQ/15 ML PO ONE ×2 (18:33→20:36)
[2024-04-12] MEDS: NAPH,MB-DB/K PH,MBDB POWDER PACKET PO ONE (18:33)
[2024-04-12] MEDS: MAGNESIUM HYDROX 2400MG/30ML ORAL SUSPENSION 30 ML CUP PO ONE (18:33)
[2024-04-13 07:08] LABS: HEMATOCRIT 28.8 % (32.4-45.2); HEMOGLOBIN 9.9 GM/dL (10.7-15.3); MCH 30.1 pg (25.7-33.7); MCHC 34.5 g/dl (32.0-36.0); MEAN CELL VOLUME 87.3 fl (80-96); MEAN PLT VOLUME 10.5 fl (7.5-11.1); PLATELET COUNT 147 10^3/uL (134-434); RDW 14.1 % (11.6-15.6); WHITE BLOOD COUNT 24.8 K/mm3 (4.0-10.0)
[2024-04-13 07:36] LABS: POTASSIUM 3.6 mmol/L (3.5-5.1)
[2024-04-13 07:43] LABS: CALCIUM 8.7 mg/dL (8.5-10.1)
[2024-04-13 07:44] LABS: BLOOD UREA NITROGEN 12.3 mg/dL (7-18)
[2024-04-13 07:47] LABS: CREATININE 0.5 mg/dL (0.55-1.3); PHOSPHOROUS 2.5 mg/dL (2.5-4.9)
[2024-04-13] MEDS: ACETAMINOPHEN 1000 MG/100 ML BAG IVPB ONE (09:51)
[2024-04-14 07:51] LABS: HEMATOCRIT 26.9 % (32.4-45.2); HEMOGLOBIN 9.1 GM/dL (10.7-15.3); MCH 29.5 pg (25.7-33.7); MCHC 33.9 g/dl (32.0-36.0); MEAN CELL VOLUME 87.1 fl (80-96); MEAN PLT VOLUME 10.6 fl (7.5-11.1); PLATELET COUNT 188 10^3/uL (134-434); RBC 3.09 M/mm3 (3.60-5.2); RDW 14.1 % (11.6-15.6); WHITE BLOOD COUNT 21.4 K/mm3 (4.0-10.0)
[2024-04-14 08:11] LABS: POTASSIUM 3.3 mmol/L (3.5-5.1)
[2024-04-14 08:21] LABS: ALBUMIN 2.7 g/dl (3.4-5.0); CALCIUM 8.8 mg/dL (8.5-10.1)
[2024-04-14 08:22] LABS: BLOOD UREA NITROGEN 11.4 mg/dL (7-18); MAGNESIUM 1.8 mg/dL (1.8-2.4)
[2024-04-14 08:25] LABS: CREATININE 0.4 mg/dL (0.55-1.3)
[2024-04-14 08:26] LABS: BILIRUBIN,TOTAL 0.8 mg/dL (0.2-1); TOT PROT 6.1 g/dl (6.4-8.2)
[2024-04-14 08:46] LABS: ANISOCYTOSIS 0; MACROCYTOSIS 0
[2024-04-14] MEDS: morphine SULFATE 4 MG/ML VIAL IVPUSH PRN (10:57)
[2024-04-14] MEDS: MAGNESIUM OXIDE 400 MG TABLET (FP) PO ONE (11:20)
[2024-04-14] MEDS: POTASSIUM CHLORIDE ORAL LIQUID 20 MEQ/15 ML PO ONE (11:20)
[2024-04-14] MEDS: oxyCODONE HCL 5 MG TABLET PO PRN (15:58)
[2024-04-14] MEDS: CALCIUM CARBONATE 650 MG TABLET PO PRN (22:11)
[2024-04-14] MEDS: SENNOSIDES 8.8 MG/5 ML SYRUP PO SCH (22:11)
[2024-04-15 07:28] LABS: HEMATOCRIT 22.4 % (32.4-45.2); HEMOGLOBIN 7.4 GM/dL (10.7-15.3); MCH 29.2 pg (25.7-33.7); MCHC 33.1 g/dl (32.0-36.0); MEAN CELL VOLUME 88.3 fl (80-96); MEAN PLT VOLUME 10.2 fl (7.5-11.1); NEUT % 77.4 % (42.8-82.8); PLATELET COUNT 193 10^3/uL (134-434); RBC 2.54 M/mm3 (3.60-5.2); RDW 14.6 % (11.6-15.6); WHITE BLOOD COUNT 15.8 K/mm3 (4.0-10.0)
[2024-04-15 07:29] LABS: BASO % 0.6 % (0-2.0); EOS % 0.3 % (0-4.5); LYMPH % 16.7 % (8-40)
[2024-04-15 07:48] LABS: POTASSIUM 3.8 mmol/L (3.5-5.1)
[2024-04-15 07:59] LABS: CALCIUM 8.9 mg/dL (8.5-10.1)
[2024-04-15 08:00] LABS: ALBUMIN 2.6 g/dl (3.4-5.0)
[2024-04-15 08:03] LABS: BLOOD UREA NITROGEN 10.4 mg/dL (7-18); CREATININE 0.5 mg/dL (0.55-1.3)
[2024-04-15 08:04] LABS: BILIRUBIN,TOTAL 1.5 mg/dL (0.2-1); MAGNESIUM 1.9 mg/dL (1.8-2.4); TOT PROT 5.9 g/dl (6.4-8.2)
[2024-04-15 08:06] LABS: PHOSPHOROUS 3.3 mg/dL (2.5-4.9)
[2024-04-15 11:45] LABS: HEMATOCRIT 17.7 % (32.4-45.2); MCH 29.2 pg (25.7-33.7); MEAN CELL VOLUME 88.6 fl (80-96); MEAN PLT VOLUME 9.7 fl (7.5-11.1); PLATELET COUNT 200 10^3/uL (134-434); WHITE BLOOD COUNT 16.1 K/mm3 (4.0-10.0)
[2024-04-15 11:48] LABS: HEMOGLOBIN 5.8 GM/dL (10.7-15.3)
[2024-04-15] MEDS: SODIUM CHLORIDE 1,000 ML IV STA (12:48)
[2024-04-15] MEDS: NOREPINEPHRINE 0.9 % NACL 8 MG/250 ML BAG IVPB SCH (17:50)
[2024-04-15] MEDS ORDERED: RAPID SEQUENCE INTUBATION KIT NR ONE (17:52)
[2024-04-15] MEDS ORDERED: NOREPINEPHRINE BITARTRATE 4 MG/4 ML ML IV ONE (17:52)
[2024-04-15] MEDS: VASopressin 40 UNITS/100 ML BAG IV SCH (18:00)
[2024-04-15] MEDS: NAFCILLIN - 2 GM in DEXTROSE 5%-WATER 100 ML IVPB SCH ×2 (18:01→23:26)
[2024-04-15] MEDS ORDERED: MIDAZOLAM HCL 2 MG/2 ML SINGLE DOSE VIAL ONE (18:26)
[2024-04-15] MEDS: MIDAZOLAM IN 0.9 % SOD.CHLORID 100 MG/100 ML PLAST..BAG IVPB SCH (18:44)
[2024-04-15] MEDS: MIDAZOLAM HCL 2 MG/2 ML SINGLE DOSE VIAL IVPUSH ONE ×3 (19:12→20:17)
[2024-04-15] MEDS: PROTAMINE SULFATE 50 MG/5 ML VIAL IVPUSH ONE ×2 (19:13→19:14)
[2024-04-15 19:51] LABS: HEMATOCRIT 21.1 % (32.4-45.2); MCH 28.6 pg (25.7-33.7); MCHC 32.6 g/dl (32.0-36.0); MEAN CELL VOLUME 87.8 fl (80-96); MEAN PLT VOLUME 9.5 fl (7.5-11.1); PLATELET COUNT 187 10^3/uL (134-434); RBC 2.41 M/mm3 (3.60-5.2); RDW 15.5 % (11.6-15.6); WHITE BLOOD COUNT 27.4 K/mm3 (4.0-10.0)
[2024-04-15 19:54] LABS: EPI CELLS >36 /uL (0-25.1); HYALINE CASTS 4 /uL (0-3.1); URINE APPEARANCE CLOUDY; URINE BACTERIA 13 /uL (0-1359); URINE BILIRUBIN NEGATIVE (NEGATIVE); URINE COLOR YELLOW; URINE GLUCOSE (UA) NEGATIVE (NEGATIVE); URINE KETONE NEGATIVE (NEGATIVE); URINE LEUK ESTERASE 1+ (NEGATIVE); URINE NITRITE NEGATIVE (NEGATIVE); URINE PROTEIN 1+ (NEGATIVE); URINE RBC 251 /uL (0-23.9); URINE UROBILINOGEN 0.2 mg/dL (0.2-1.0); URINE WBC 165 /uL (0-25.8)
[2024-04-15 19:55] LABS: HEMOGLOBIN 6.9 GM/dL (10.7-15.3)
[2024-04-15 20:00] LABS: INR 1.43 (0.83-1.09)
[2024-04-15 20:03] LABS: ACTIVATED PTT 39.2 SECONDS (25.2-36.5)
[2024-04-15 20:16] LABS: POTASSIUM 4.7 mmol/L (3.5-5.1)
[2024-04-15 20:17] LABS: CALCIUM 7.9 mg/dL (8.5-10.1)
[2024-04-15 20:18] LABS: BLOOD UREA NITROGEN 22.9 mg/dL (7-18)
[2024-04-15 20:20] LABS: ALBUMIN 1.9 g/dl (3.4-5.0)
[2024-04-15 20:21] LABS: LACTIC ACID 7.8 mmol/L (0.4-2.0)
[2024-04-15 20:23] LABS: BILIRUBIN,TOTAL 0.7 mg/dL (0.2-1)
[2024-04-15 20:24] LABS: TOT PROT 4.6 g/dl (6.4-8.2)
[2024-04-15 20:41] LABS: POTASSIUM 4.7 mmol/L (3.5-5.1)
[2024-04-15 20:43] LABS: CALCIUM 8.1 mg/dL (8.5-10.1)
[2024-04-15 20:44] LABS: ALBUMIN 2.1 g/dl (3.4-5.0); BLOOD UREA NITROGEN 23.4 mg/dL (7-18)
[2024-04-15 20:47] LABS: CREATININE 0.9 mg/dL (0.55-1.3)
[2024-04-15 20:49] LABS: TOT PROT 4.9 g/dl (6.4-8.2)
[2024-04-15] MEDS ORDERED: LORazepam 0.5 MG TABLET PO PRN ×2 (20:59)
[2024-04-15] MEDS ORDERED: oxyCODONE HCL 5 MG TABLET PO PRN (20:59)
[2024-04-15] MEDS ORDERED: morphine SULFATE 4 MG/ML VIAL IVPUSH PRN (20:59)
[2024-04-15] MEDS ORDERED: CALCIUM CARBONATE 650 MG TABLET PO PRN (20:59)
[2024-04-15 21:31] LABS: ANISOCYTOSIS 1+; MACROCYTOSIS 0; OVALOCYTE 1+
[2024-04-15 21:34] LABS: ARTERIAL BLOOD GAS BASE EXCESS -8.5 mmol/L (-2-2); ARTERIAL BLOOD GAS pH 7.317 (7.350-7.450)
[2024-04-15 21:37] LABS: VENT MODE AC; VENT RATE 16
[2024-04-15] MEDS ORDERED: MUPIROCIN 2% TOPICAL OINTMENT FOR DECOLONIZATION NS SCH (22:00)
[2024-04-15] MEDS ORDERED: CHLORHEXIDINE GLUCONATE 4% CLEANSER FOR DECOLONIZATION TP SCH (22:00)
[2024-04-15] MEDS: POLYETHYLENE GLYCOL (HEALTHYLAX) 3350 17 GM PACKET PO SCH (22:50)
[2024-04-15] MEDS: CHLORHEXIDINE GLUCONATE 4% CLEANSER FOR DECOLONIZATION TP SCH (22:51)
[2024-04-15] MEDS: SENNOSIDES 8.8 MG/5 ML SYRUP PO SCH (22:51)
[2024-04-15] MEDS: LIDOCAINE PATCH REMOVAL MC SCH ×2 (22:51)
[2024-04-15] MEDS: MUPIROCIN 2% TOPICAL OINTMENT FOR DECOLONIZATION NS SCH (22:51)
[2024-04-15] MEDS: EZETIMIBE 10 MG TABLET (FP) PO SCH (22:51)
[2024-04-15] MEDS: dilTIAZem HCL 60 MG TABLET PO SCH (23:41)
[2024-04-16] MEDS: LACTATED RINGERS SOLUTION 1,000 ML/1,000 ML INFUS.BAG IV STA (00:30)
[2024-04-16] MEDS: LACTATED RINGERS SOLUTION 1,000 ML/1,000 ML INFUS.BAG IV SCH (00:30)
[2024-04-16] MEDS: PROPOFOL 1,000,000 MCG/100 ML VIAL IVPB SCH (00:30)
[2024-04-16] MEDS: ACETAMINOPHEN 1000 MG/100 ML BAG IVPB PRN (00:39)
[2024-04-16 00:42] LABS: HEMATOCRIT 30.1 % (32.4-45.2); HEMOGLOBIN 10.5 GM/dL (10.7-15.3); MCH 29.6 pg (25.7-33.7); MCHC 34.8 g/dl (32.0-36.0); MEAN CELL VOLUME 85.1 fl (80-96); PLATELET COUNT 132 10^3/uL (134-434); RBC 3.54 M/mm3 (3.60-5.2); RDW 14.7 % (11.6-15.6); WHITE BLOOD COUNT 15.8 K/mm3 (4.0-10.0)
[2024-04-16] MEDS: PIPERACILLIN/TAZOB 3.375 GM 3.375 GM in DEXTROSE 5%-WATER - 50 ML IVPB SCH (00:47)
[2024-04-16 00:49] LABS: ARTERIAL BLD GAS O2 SATURATION 96.6 % (95-98); ARTERIAL BLOOD GAS BASE EXCESS -5.1 mmol/L (-2-2); ARTERIAL BLOOD GAS PO2 86.8 mmHg (80-100); ARTERIAL BLOOD GAS pH 7.381 (7.350-7.450)
[2024-04-16 00:50] LABS: INR 1.21 (0.83-1.09); PROTHROMBIN TIME (PATIENT) 13.6 SEC (9.7-13.0)
[2024-04-16] MEDS: FENTANYL NS IVPB 500 MCG/100 ML BAG IVPB SCH (00:50)
[2024-04-16 00:51] LABS: ACTIVATED PTT 34.4 SECONDS (25.2-36.5)
[2024-04-16 01:00] LABS: POTASSIUM 3.7 mmol/L (3.5-5.1)
[2024-04-16 01:02] LABS: BLOOD UREA NITROGEN 21.7 mg/dL (7-18); CALCIUM 8.4 mg/dL (8.5-10.1); MAGNESIUM 1.9 mg/dL (1.8-2.4)
[2024-04-16 01:04] LABS: CHLORIDE 98 mmol/L (98-107); POTASSIUM 3.7 mmol/L (3.5-5.1); SODIUM 129 mmol/L (136-145)
[2024-04-16 01:06] LABS: CREATININE 0.6 mg/dL (0.55-1.3); PHOSPHOROUS 4.5 mg/dL (2.5-4.9)
[2024-04-16 01:06] LABS: CALCIUM 8.4 mg/dL (8.5-10.1)
[2024-04-16 01:07] LABS: ALBUMIN 2.4 g/dl (3.4-5.0); ANION GAP 8 mmol/L (4-13); CO2 22 mmol/L (21-32); GLUCOSE,RANDOM 192 mg/dL (74-106)
[2024-04-16 01:10] LABS: CREATININE 0.6 mg/dL (0.55-1.3); SGOT/AST 209 U/L (15-37); SGPT/ALT 56 U/L (13-61)
[2024-04-16 01:12] LABS: BILIRUBIN,TOTAL 1.6 mg/dL (0.2-1); TOT PROT 5.4 g/dl (6.4-8.2)
[2024-04-16 01:13] LABS: ALK PHOS 71 U/L (45-117)
[2024-04-16 01:15] LABS: N-TERMINAL BNP 1045.1 pg/ml (5-125)
[2024-04-16 03:02] LABS: ANISOCYTOSIS 2+; MACROCYTOSIS 0; ROULEAU 1+
[2024-04-16 04:49] LABS: ARTERIAL BLD GAS O2 SATURATION 97.2 % (95-98); ARTERIAL BLOOD GAS BASE EXCESS -5.2 mmol/L (-2-2); ARTERIAL BLOOD GAS PO2 96.2 mmHg (80-100); ARTERIAL BLOOD GAS pH 7.371 (7.350-7.450)
[2024-04-16 04:50] LABS: HEMATOCRIT 30.4 % (32.4-45.2); HEMOGLOBIN 10.7 GM/dL (10.7-15.3); MCH 29.8 pg (25.7-33.7); MCHC 35.1 g/dl (32.0-36.0); MEAN CELL VOLUME 84.8 fl (80-96); MEAN PLT VOLUME 8.9 fl (7.5-11.1); PLATELET COUNT 117 10^3/uL (134-434); RBC 3.58 M/mm3 (3.60-5.2); RDW 14.9 % (11.6-15.6); WHITE BLOOD COUNT 12.5 K/mm3 (4.0-10.0)
[2024-04-16 05:00] LABS: INR 1.16 (0.83-1.09); PROTHROMBIN TIME (PATIENT) 13.1 SEC (9.7-13.0)
[2024-04-16 05:02] LABS: ACTIVATED PTT 33.2 SECONDS (25.2-36.5)
[2024-04-16 06:16] LABS: ANISOCYTOSIS 1+; MACROCYTOSIS 0; ROULEAU 1+
[2024-04-16 06:19] LABS: MAGNESIUM 1.9 mg/dL (1.8-2.4)
[2024-04-16 06:23] LABS: PHOSPHOROUS 4.1 mg/dL (2.5-4.9)
[2024-04-16] MEDS: KCL 20 MEQ PREMIX BAG 20 MEQ/100 ML INFUS.BAG IVPB ONE (06:46)
[2024-04-16 08:07] LABS: HEMATOCRIT 30.3 % (32.4-45.2); HEMOGLOBIN 10.8 GM/dL (10.7-15.3); MCH 29.9 pg (25.7-33.7); MCHC 35.5 g/dl (32.0-36.0); MEAN CELL VOLUME 84.1 fl (80-96); MEAN PLT VOLUME 9.5 fl (7.5-11.1); PLATELET COUNT 140 10^3/uL (134-434); RDW 14.7 % (11.6-15.6); WHITE BLOOD COUNT 14.8 K/mm3 (4.0-10.0)
[2024-04-16 08:11] LABS: POTASSIUM 3.6 mmol/L (3.5-5.1)
[2024-04-16 08:14] LABS: ALBUMIN 2.2 g/dl (3.4-5.0); CALCIUM 8.3 mg/dL (8.5-10.1)
[2024-04-16 08:15] LABS: BLOOD UREA NITROGEN 19.2 mg/dL (7-18)
[2024-04-16 08:18] LABS: BILIRUBIN,TOTAL 1.8 mg/dL (0.2-1); CREATININE 0.5 mg/dL (0.55-1.3)
[2024-04-16 08:19] LABS: TOT PROT 4.9 g/dl (6.4-8.2)
[2024-04-16 08:37] LABS: ANISOCYTOSIS 0; MACROCYTOSIS 0
[2024-04-16] MEDS: ESCITALOPRAM OXALATE 20 MG TABLET PO SCH (10:32)
[2024-04-16] MEDS: MULTIVITAMINS (DAILY MVI) TABLET (FP) PO SCH (10:34)
[2024-04-16] MEDS: ZINC SULFATE 220 MG CAPSULE (FP) PO SCH (10:34)
[2024-04-16] MEDS: ASCORBIC ACID 500 MG TABLET (FP) PO SCH (10:35)
[2024-04-16] MEDS: LIDOCAINE 5% TOPICAL PATCH TP SCH (10:42)
[2024-04-16] MEDS ORDERED: VASopressin 20 UNITS/ML VIAL IV ONE (16:29)
[2024-04-16 22:30] LABS: HEMATOCRIT 15.7 % (32.4-45.2); MCH 29.6 pg (25.7-33.7); MCHC 34.7 g/dl (32.0-36.0); MEAN CELL VOLUME 85.5 fl (80-96); MEAN PLT VOLUME 8.9 fl (7.5-11.1); PLATELET COUNT 128 10^3/uL (134-434); RBC 1.84 M/mm3 (3.60-5.2); RDW 14.5 % (11.6-15.6); WHITE BLOOD COUNT 13.2 K/mm3 (4.0-10.0)
[2024-04-16 22:35] LABS: HEMOGLOBIN 5.5 GM/dL (10.7-15.3)
[2024-04-16 22:58] LABS: HEMATOCRIT 19.3 % (32.4-45.2); MCH 29.5 pg (25.7-33.7); MEAN CELL VOLUME 84.3 fl (80-96); MEAN PLT VOLUME 8.9 fl (7.5-11.1); PLATELET COUNT 155 10^3/uL (134-434); RBC 2.29 M/mm3 (3.60-5.2); RDW 14.8 % (11.6-15.6); WHITE BLOOD COUNT 16.3 K/mm3 (4.0-10.0)
[2024-04-16 23:01] LABS: HEMOGLOBIN 6.8 GM/dL (10.7-15.3)
[2024-04-17] MEDS: FENTANYL NS IVPB 500 MCG/100 ML BAG IVPB SCH (01:12)
[2024-04-17] MEDS ORDERED: PIPERACILLIN/TAZOB 3.375 GM 3.375 GM in DEXTROSE 5%-WATER - 50 ML IVPB SCH (02:00)
[2024-04-17 08:00] LABS: HEMATOCRIT 27.4 % (32.4-45.2); HEMOGLOBIN 9.4 GM/dL (10.7-15.3); MCH 28.8 pg (25.7-33.7); MCHC 34.2 g/dl (32.0-36.0); MEAN CELL VOLUME 84.2 fl (80-96); MEAN PLT VOLUME 8.6 fl (7.5-11.1); PLATELET COUNT 144 10^3/uL (134-434); RBC 3.25 M/mm3 (3.60-5.2); RDW 15.5 % (11.6-15.6); WHITE BLOOD COUNT 15.3 K/mm3 (4.0-10.0)
[2024-04-17 08:07] LABS: HEMATOCRIT 26.9 % (32.4-45.2); HEMOGLOBIN 9.4 GM/dL (10.7-15.3); MCH 29.4 pg (25.7-33.7); MCHC 34.9 g/dl (32.0-36.0); MEAN CELL VOLUME 84.3 fl (80-96); MEAN PLT VOLUME 8.7 fl (7.5-11.1); PLATELET COUNT 143 10^3/uL (134-434); RBC 3.19 M/mm3 (3.60-5.2); RDW 15.4 % (11.6-15.6); WHITE BLOOD COUNT 15.4 K/mm3 (4.0-10.0)
[2024-04-17 08:13] LABS: POTASSIUM 3.7 mmol/L (3.5-5.1)
[2024-04-17 08:15] LABS: CALCIUM 7.8 mg/dL (8.5-10.1)
[2024-04-17 08:16] LABS: BLOOD UREA NITROGEN 18.3 mg/dL (7-18); MAGNESIUM 1.8 mg/dL (1.8-2.4)
[2024-04-17 08:19] LABS: CREATININE 0.5 mg/dL (0.55-1.3); PHOSPHOROUS 3.8 mg/dL (2.5-4.9)
[2024-04-17 08:20] LABS: BILIRUBIN,TOTAL 1.6 mg/dL (0.2-1); TOT PROT 4.8 g/dl (6.4-8.2)
[2024-04-17 08:23] LABS: INR 1.06 (0.83-1.09)
[2024-04-17 08:25] LABS: ACTIVATED PTT 27.3 SECONDS (25.2-36.5)
[2024-04-17 09:49] LABS: ANISOCYTOSIS 0; MACROCYTOSIS 0
[2024-04-17 11:27] LABS: HEMATOCRIT 25.4 % (32.4-45.2); MCH 29.3 pg (25.7-33.7); MCHC 35.5 g/dl (32.0-36.0); MEAN CELL VOLUME 82.6 fl (80-96); MEAN PLT VOLUME 8.3 fl (7.5-11.1); PLATELET COUNT 150 10^3/uL (134-434); RBC 3.07 M/mm3 (3.60-5.2); RDW 15.7 % (11.6-15.6); WHITE BLOOD COUNT 15.1 K/mm3 (4.0-10.0)
[2024-04-17 11:56] LABS: RETICULOCYTES 2.58 % (0.5-1.5)
[2024-04-17] MEDS ORDERED: TRANEXAMIC ACID 1000 MG/10 ML VIAL IVPUSH ONE (13:32)
[2024-04-17] MEDS: TRANEXAMIC ACID 1000 MG/10 ML VIAL IVPUSH ONE (14:39)
[2024-04-17 15:35] LABS: BASO % 0.2 % (0-2.0); EOS % 0.1 % (0-4.5); HEMATOCRIT 24.3 % (32.4-45.2); HEMOGLOBIN 8.5 GM/dL (10.7-15.3); LYMPH % 12.2 % (8-40); MCH 29.1 pg (25.7-33.7); MEAN CELL VOLUME 83.2 fl (80-96); MEAN PLT VOLUME 8.1 fl (7.5-11.1); MONO % 6.7 % (3.8-10.2); NEUT % 80.8 % (42.8-82.8); PLATELET COUNT 148 10^3/uL (134-434); RBC 2.92 M/mm3 (3.60-5.2); RDW 15.9 % (11.6-15.6); WHITE BLOOD COUNT 12.4 K/mm3 (4.0-10.0)
[2024-04-17 18:40] LABS: HEMOGLOBIN 8.3 GM/dL (10.7-15.3); MCH 28.6 pg (25.7-33.7); MCHC 34.6 g/dl (32.0-36.0); MEAN CELL VOLUME 82.5 fl (80-96); MEAN PLT VOLUME 7.9 fl (7.5-11.1); PLATELET COUNT 160 10^3/uL (134-434); RBC 2.91 M/mm3 (3.60-5.2); RDW 16.1 % (11.6-15.6); WHITE BLOOD COUNT 11.6 K/mm3 (4.0-10.0)
[2024-04-18 01:09] LABS: HEMATOCRIT 26.8 % (32.4-45.2); HEMOGLOBIN 9.5 GM/dL (10.7-15.3); MCH 29.3 pg (25.7-33.7); MCHC 35.5 g/dl (32.0-36.0); MEAN CELL VOLUME 82.5 fl (80-96); MEAN PLT VOLUME 7.8 fl (7.5-11.1); PLATELET COUNT 152 10^3/uL (134-434); RBC 3.25 M/mm3 (3.60-5.2); RDW 16.5 % (11.6-15.6); WHITE BLOOD COUNT 10.6 K/mm3 (4.0-10.0)
[2024-04-18 03:21] LABS: ANISOCYTOSIS 1+; MACROCYTOSIS 0
[2024-04-18 09:12] LABS: ARTERIAL BLD GAS O2 SATURATION 98.1 % (95-98); ARTERIAL BLOOD GAS BASE EXCESS -4.2 mmol/L (-2-2); ARTERIAL BLOOD GAS PO2 112.8 mmHg (80-100); ARTERIAL BLOOD GAS pH 7.382 (7.350-7.450)
[2024-04-18 09:16] LABS: HEMOGLOBIN 9.3 GM/dL (10.7-15.3); MCH 29.4 pg (25.7-33.7); MCHC 35.9 g/dl (32.0-36.0); MEAN CELL VOLUME 82.1 fl (80-96); MEAN PLT VOLUME 7.8 fl (7.5-11.1); PLATELET COUNT 152 10^3/uL (134-434); RBC 3.17 M/mm3 (3.60-5.2); RDW 16.3 % (11.6-15.6); WHITE BLOOD COUNT 9.6 K/mm3 (4.0-10.0)
[2024-04-18 09:20] LABS: INR 1.02 (0.83-1.09); PROTHROMBIN TIME (PATIENT) 11.7 SEC (9.7-13.0)
[2024-04-18 10:44] LABS: CHLORIDE 107 mmol/L (98-107); SODIUM 137 mmol/L (136-145)
[2024-04-18] MEDS: KCL 10 MEQ IVPB 10 MEQ/100 ML INFUS.BAG IVPB SCH (10:45)
[2024-04-18 10:46] LABS: BLOOD UREA NITROGEN 12.9 mg/dL (7-18); CALCIUM 7.8 mg/dL (8.5-10.1); CO2 22 mmol/L (21-32); GLUCOSE,RANDOM 84 mg/dL (74-106); MAGNESIUM 1.7 mg/dL (1.8-2.4)
[2024-04-18 10:49] LABS: ANISOCYTOSIS 0; CREATININE 0.4 mg/dL (0.55-1.3); MACROCYTOSIS 0; SGOT/AST 89 U/L (15-37); SGPT/ALT 35 U/L (13-61)
[2024-04-18 10:50] LABS: PHOSPHOROUS 3.1 mg/dL (2.5-4.9)
[2024-04-18 10:51] LABS: BILIRUBIN,TOTAL 1.3 mg/dL (0.2-1); TOT PROT 4.9 g/dl (6.4-8.2)
[2024-04-18 10:52] LABS: ALK PHOS 43 U/L (45-117)
[2024-04-18 11:00] LABS: ANION GAP 8 mmol/L (4-13); POTASSIUM 2.8 mmol/L (3.5-5.1)
[2024-04-18 11:07] LABS: HEMATOCRIT 28.9 % (32.4-45.2); HEMOGLOBIN 10.2 GM/dL (10.7-15.3); MCH 29.7 pg (25.7-33.7); MCHC 35.3 g/dl (32.0-36.0); MEAN CELL VOLUME 84.1 fl (80-96); PLATELET COUNT 153 10^3/uL (134-434); RBC 3.44 M/mm3 (3.60-5.2); RDW 16.4 % (11.6-15.6); WHITE BLOOD COUNT 10.4 K/mm3 (4.0-10.0)
[2024-04-18] MEDS ORDERED: PROPOFOL 1,000,000 MCG/100 ML VIAL ONE ×2 (12:22→14:24)
[2024-04-18] MEDS: MAGNESIUM SULFATE IN WATER 2 GM/50 ML IVPB IVPB ONE (12:43)
[2024-04-18] MEDS: PROPOFOL 1,000,000 MCG/100 ML VIAL IVPB SCH (14:24)
[2024-04-18 14:28] LABS: HEMATOCRIT 26.3 % (32.4-45.2); HEMOGLOBIN 9.3 GM/dL (10.7-15.3); MCH 29.2 pg (25.7-33.7); MCHC 35.3 g/dl (32.0-36.0); MEAN CELL VOLUME 82.8 fl (80-96); MEAN PLT VOLUME 7.6 fl (7.5-11.1); PLATELET COUNT 158 10^3/uL (134-434); RBC 3.17 M/mm3 (3.60-5.2); RDW 16.3 % (11.6-15.6); WHITE BLOOD COUNT 8.6 K/mm3 (4.0-10.0)
[2024-04-18 15:52] LABS: HEMATOCRIT 27.6 % (32.4-45.2); HEMOGLOBIN 9.6 GM/dL (10.7-15.3); MCH 29.5 pg (25.7-33.7); MCHC 34.7 g/dl (32.0-36.0); MEAN CELL VOLUME 85.1 fl (80-96); MEAN PLT VOLUME 7.7 fl (7.5-11.1); PLATELET COUNT 145 10^3/uL (134-434); RBC 3.25 M/mm3 (3.60-5.2); RDW 16.5 % (11.6-15.6); WHITE BLOOD COUNT 8.6 K/mm3 (4.0-10.0)
[2024-04-18] MEDS: KCL 20 MEQ PREMIX BAG 20 MEQ/100 ML INFUS.BAG IVPB SCH ×2 (16:59→18:26)
[2024-04-18 19:40] LABS: BLOOD UREA NITROGEN 9.2 mg/dL (7-18); MAGNESIUM 2.1 mg/dL (1.8-2.4)
[2024-04-18 19:44] LABS: CREATININE 0.4 mg/dL (0.55-1.3)
[2024-04-18] MEDS: FENTANYL CITRATE/PF 50 MCG/ML VIAL IVPUSH PRN (23:06)
[2024-04-18] MEDS ORDERED: ACETAMINOPHEN 650 MG/20.3 ML ORAL SOLUTION (CUPS) PO PRN (23:44)
[2024-04-18 23:50] LABS: HEMATOCRIT 27.6 % (32.4-45.2); HEMOGLOBIN 9.7 GM/dL (10.7-15.3); MCH 29.6 pg (25.7-33.7); MCHC 35.1 g/dl (32.0-36.0); MEAN CELL VOLUME 84.3 fl (80-96); MEAN PLT VOLUME 7.3 fl (7.5-11.1); PLATELET COUNT 171 10^3/uL (134-434); RBC 3.27 M/mm3 (3.60-5.2); RDW 16.3 % (11.6-15.6); WHITE BLOOD COUNT 8.5 K/mm3 (4.0-10.0)
[2024-04-19 06:02] LABS: BLOOD UREA NITROGEN 8.7 mg/dL (7-18); CALCIUM 7.9 mg/dL (8.5-10.1); MAGNESIUM 1.7 mg/dL (1.8-2.4)
[2024-04-19 06:06] LABS: CREATININE 0.3 mg/dL (0.55-1.3); PHOSPHOROUS 2.9 mg/dL (2.5-4.9)
[2024-04-19 06:41] LABS: ARTERIAL BLOOD GAS BASE EXCESS -4.2 mmol/L (-2-2); ARTERIAL BLOOD GAS PO2 73.8 mmHg (80-100); ARTERIAL BLOOD GAS pH 7.399 (7.350-7.450)
[2024-04-19 07:23] LABS: HEMATOCRIT 27.5 % (32.4-45.2); HEMOGLOBIN 9.7 GM/dL (10.7-15.3); MCH 29.5 pg (25.7-33.7); MCHC 35.2 g/dl (32.0-36.0); MEAN CELL VOLUME 83.9 fl (80-96); MEAN PLT VOLUME 7.7 fl (7.5-11.1); PLATELET COUNT 179 10^3/uL (134-434); RBC 3.28 M/mm3 (3.60-5.2); RDW 16.3 % (11.6-15.6); WHITE BLOOD COUNT 8.9 K/mm3 (4.0-10.0)
[2024-04-19 07:29] LABS: VENT MODE A/C; VENT RATE 16
[2024-04-19] MEDS: MAGNESIUM SULF 50% (8.12 MEQ/2 ML-1 GM VIAL) IVPB ONE (08:50)
[2024-04-19] MEDS: ACETAMINOPHEN 1000 MG/100 ML BAG IVPB ONE (08:57)
[2024-04-19] MEDS: KCL 20 MEQ PREMIX BAG 20 MEQ/100 ML INFUS.BAG IVPB SCH (09:33)
[2024-04-19] MEDS: FUROSEMIDE 40 MG/4 ML INJECTABLE VIAL IVPUSH ONE (10:59)
[2024-04-19] MEDS ORDERED: INSULIN ASPART SLIDING SCALE (NOVOLOG) 1 VIAL SQ ONE (11:23)
[2024-04-19] MEDS: AMINO ACIDS/PROTEIN HYDROLYS 30 ML LIQUID.PKT GT SCH (12:24)
[2024-04-19] MEDS ORDERED: NAFCILLIN NA 2 GM VIAL IVPB ONE (18:07)
[2024-04-20] MEDS: FUROSEMIDE 40 MG/4 ML INJECTABLE VIAL IVPUSH ONE (06:45)
[2024-04-20 07:44] LABS: CHLORIDE 105 mmol/L (98-107); SODIUM 132 mmol/L (136-145)
[2024-04-20 07:54] LABS: BLOOD UREA NITROGEN 6.3 mg/dL (7-18); CO2 16 mmol/L (21-32); GLUCOSE,RANDOM 102 mg/dL (74-106); MAGNESIUM 1.2 mg/dL (1.8-2.4)
[2024-04-20 07:57] LABS: CREATININE < 0.2 mg/dL (0.55-1.3); PHOSPHOROUS 2.1 mg/dL (2.5-4.9); SGOT/AST 42 U/L (15-37); SGPT/ALT 19 U/L (13-61)
[2024-04-20 07:58] LABS: TOT PROT 3.5 g/dl (6.4-8.2)
[2024-04-20 07:59] LABS: ALK PHOS 36 U/L (45-117)
[2024-04-20 08:13] LABS: ALBUMIN 1.2 g/dl (3.4-5.0); ANION GAP 11 mmol/L (4-13); CALCIUM 5.8 mg/dL (8.5-10.1)
[2024-04-20 08:16] LABS: HEMATOCRIT 19.1 % (32.4-45.2); HEMOGLOBIN 8.7 GM/dL (10.7-15.3); MCH 39.8 pg (25.7-33.7); MEAN CELL VOLUME 87.2 fl (80-96); MEAN PLT VOLUME 8.5 fl (7.5-11.1); PLATELET COUNT 136 10^3/uL (134-434); RBC 2.19 M/mm3 (3.60-5.2); RDW 17.1 % (11.6-15.6); WHITE BLOOD COUNT 5.9 K/mm3 (4.0-10.0)
[2024-04-20 08:19] LABS: MCHC 45.6 g/dl (32.0-36.0)
[2024-04-20] MEDS: MAGNESIUM 2GM/50ML STERILE WATER IVPB IVPB ONE (08:27)
[2024-04-20] MEDS ORDERED: KCL 20 MEQ PREMIX BAG 20 MEQ/100 ML INFUS.BAG IVPB SCH (08:30)
[2024-04-20] MEDS: POTASSIUM CHLORIDE ORAL LIQUID 20 MEQ/15 ML PO SCH (08:54)
[2024-04-20] MEDS: SODIUM PHOSPHATE - 30 MM in SODIUM CHLORIDE 250 ML IVPB ONE (09:28)
[2024-04-20] MEDS: MAGNESIUM SULF 50% (8.12 MEQ/2 ML-1 GM VIAL) IVPB ONE (09:44)
[2024-04-20] MEDS: KCL 10 MEQ IVPB 10 MEQ/100 ML INFUS.BAG IVPB SCH (11:04)
[2024-04-20] MEDS: ACETAMINOPHEN 1000 MG/100 ML BAG IVPB ONE (12:18)
[2024-04-20] MEDS: PIPERACILLIN/TAZOB 4.5 GM 4.5 GM in DEXTROSE 5%-WATER 100 ML IVPB SCH (14:33)
[2024-04-20 20:05] LABS: CHLORIDE 110 mmol/L (98-107); SODIUM 132 mmol/L (136-145)
[2024-04-20 20:07] LABS: BLOOD UREA NITROGEN 5.9 mg/dL (7-18); CO2 10 mmol/L (21-32); GLUCOSE,RANDOM 132 mg/dL (74-106)
[2024-04-20 21:07] LABS: ANION GAP 11 mmol/L (4-13); CALCIUM < 5.0 mg/dL (8.5-10.1); CREATININE < 0.2 mg/dL (0.55-1.3); POTASSIUM 2.3 mmol/L (3.5-5.1)
[2024-04-20] MEDS ORDERED: POTASSIUM CHLORIDE TABS 20 MEQ TABLET.ER (FP) PO ONE (21:42)
[2024-04-20] MEDS: CALCIUM GLUCONATE 10% - 1,000 MG/10 ML VIAL IVPB ONE (21:58)
[2024-04-20] MEDS: POTASSIUM CHLORIDE ORAL LIQUID 20 MEQ/15 ML GT ONE (21:58)
[2024-04-20] MEDS ORDERED: POTASSIUM CHLORIDE ORAL LIQUID 20 MEQ/15 ML PO ONE (22:00)
[2024-04-20] MEDS: ACETAMINOPHEN 650 MG/20.3 ML ORAL SOLUTION (CUPS) GT PRN (22:19)
[2024-04-20] MEDS: CALCIUM CARBONATE SUSPENSION - 1250 MG/5 ML ML NGT SCH (22:21)
[2024-04-21 06:29] LABS: HEMATOCRIT 26.9 % (32.4-45.2); HEMOGLOBIN 9.3 GM/dL (10.7-15.3); MCH 29.8 pg (25.7-33.7); MCHC 34.7 g/dl (32.0-36.0); MEAN CELL VOLUME 85.8 fl (80-96); MEAN PLT VOLUME 7.4 fl (7.5-11.1); PLATELET COUNT 227 10^3/uL (134-434); RBC 3.13 M/mm3 (3.60-5.2); RDW 17.3 % (11.6-15.6); WHITE BLOOD COUNT 9.6 K/mm3 (4.0-10.0)
[2024-04-21 06:50] LABS: POTASSIUM 3.7 mmol/L (3.5-5.1)
[2024-04-21 06:57] LABS: BLOOD UREA NITROGEN 10.4 mg/dL (7-18); CREATININE 0.4 mg/dL (0.55-1.3); MAGNESIUM 1.9 mg/dL (1.8-2.4)
[2024-04-21 07:00] LABS: PHOSPHOROUS 3.6 mg/dL (2.5-4.9); TOT PROT 5.4 g/dl (6.4-8.2)
[2024-04-21] MEDS ORDERED: LIDOCAINE HCL 1%, 10 MG/ML (20ML VIAL) ONE (07:15)
[2024-04-21] MEDS ORDERED: HEPARIN NA (PORCINE) 5,000 UNITS/ML 1ML VIAL ONE (07:15)
[2024-04-21 07:22] LABS: ALBUMIN 1.8 g/dl (3.4-5.0); CALCIUM 8.5 mg/dL (8.5-10.1)
[2024-04-21] MEDS ORDERED: ROCURONIUM BROMIDE 50 MG/5 ML SYRINGE ONE (07:34)
[2024-04-21] MEDS ORDERED: ePHEDrine SULFATE 50 MG/1 ML AMPULE ONE (07:35)
[2024-04-21] MEDS ORDERED: MIDAZOLAM HCL 2 MG/2 ML SINGLE DOSE VIAL ONE (07:39)
[2024-04-21] MEDS: LIDOCAINE HCL 1%, 10 MG/ML (20ML VIAL) NR ONE ×2 (08:26)
[2024-04-21] MEDS: FUROSEMIDE 40 MG/4 ML INJECTABLE VIAL IVPUSH ONE (09:20)
[2024-04-21] MEDS ORDERED: FUROSEMIDE 40 MG/4 ML INJECTABLE VIAL ONE (09:25)
[2024-04-21] MEDS: ACETAMINOPHEN 1000 MG/100 ML BAG IVPB PRN (12:00)
[2024-04-21] MEDS ORDERED: ACETAMINOPHEN INJECTION 100 ML ONE (12:57)
[2024-04-21] MEDS ORDERED: morphine CARPU-JECT 2 MG/1 ML DISP.SYRIN IVPUSH PRN (13:17)
[2024-04-21 18:44] LABS: POTASSIUM 3.5 mmol/L (3.5-5.1)
[2024-04-21 18:46] LABS: CALCIUM 8.7 mg/dL (8.5-10.1)
[2024-04-21 18:51] LABS: CREATININE 0.4 mg/dL (0.55-1.3)
[2024-04-21] MEDS ORDERED: FENTANYL CITRATE/PF 50 MCG/ML VIAL IVPUSH SCH (20:30)
[2024-04-21] MEDS: FENTANYL CITRATE/PF 50 MCG/ML VIAL IVPUSH PRN (20:35)
[2024-04-22] MEDS: dilTIAZem HCL 50 MG/10 ML - 10 ML VIAL IVPUSH ONE (04:02)
[2024-04-22 07:43] LABS: HEMATOCRIT 27.3 % (32.4-45.2); HEMOGLOBIN 9.4 GM/dL (10.7-15.3); MCH 29.6 pg (25.7-33.7); MCHC 34.4 g/dl (32.0-36.0); MEAN CELL VOLUME 86.1 fl (80-96); MEAN PLT VOLUME 7.5 fl (7.5-11.1); PLATELET COUNT 256 10^3/uL (134-434); RBC 3.17 M/mm3 (3.60-5.2); RDW 17.3 % (11.6-15.6); WHITE BLOOD COUNT 10.3 K/mm3 (4.0-10.0)
[2024-04-22 07:58] LABS: SODIUM 140 mmol/L (136-145)
[2024-04-22 07:59] LABS: CHLORIDE 106 mmol/L (98-107)
[2024-04-22 08:01] LABS: ALBUMIN 1.9 g/dl (3.4-5.0); BLOOD UREA NITROGEN 10.8 mg/dL (7-18); CO2 23 mmol/L (21-32)
[2024-04-22 08:03] LABS: GLUCOSE,RANDOM 117 mg/dL (74-106)
[2024-04-22 08:04] LABS: CALCIUM 8.5 mg/dL (8.5-10.1); MAGNESIUM 1.5 mg/dL (1.8-2.4); SGOT/AST 41 U/L (15-37); SGPT/ALT 18 U/L (13-61)
[2024-04-22 08:05] LABS: CREATININE 0.4 mg/dL (0.55-1.3); PHOSPHOROUS 3.1 mg/dL (2.5-4.9)
[2024-04-22 08:07] LABS: BILIRUBIN,TOTAL 1.4 mg/dL (0.2-1); TOT PROT 5.8 g/dl (6.4-8.2)
[2024-04-22 08:08] LABS: ALK PHOS 48 U/L (45-117)
[2024-04-22 08:26] LABS: ANION GAP 11 mmol/L (4-13); POTASSIUM 2.9 mmol/L (3.5-5.1)
[2024-04-22] MEDS: MAGNESIUM 2GM/50ML STERILE WATER IVPB IVPB ONE (09:45)
[2024-04-22] MEDS: POTASSIUM CHLORIDE ORAL LIQUID 20 MEQ/15 ML PO ONE (09:46)
[2024-04-22] MEDS: MAGNESIUM SULF 50% (8.12 MEQ/2 ML-1 GM VIAL) IVPB ONE (09:47)
[2024-04-22] MEDS: ALBUTEROL SO4 2.5/IPRATROPIUM 0.5 INH SOL 3 ML VIAL.NEB. NEB PRN (11:28)
[2024-04-22 13:36] LABS: POTASSIUM 3.2 mmol/L (3.5-5.1)
[2024-04-22 13:38] LABS: BLOOD UREA NITROGEN 12.4 mg/dL (7-18); CALCIUM 8.7 mg/dL (8.5-10.1)
[2024-04-22 13:42] LABS: CREATININE 0.4 mg/dL (0.55-1.3)
[2024-04-22] MEDS: PANTOPRAZOLE SODIUM 40 MG VIAL IVPUSH SCH (14:25)
[2024-04-22] MEDS: ALPRAZolam 0.25 MG TABLET PO PRN (14:26)
[2024-04-22] MEDS: REMDESIVIR 100 MG in SODIUM CHLORIDE 250 ML IVPB SCH (16:59)
[2024-04-22] MEDS: DEXAMETHASONE 4 MG TABLET (FP) PO SCH (17:05)
[2024-04-22] MEDS: REMDESIVIR 200 MG in SODIUM CHLORIDE 250 ML IVPB ONE (17:58)
[2024-04-22] MEDS: DEXAMETHASONE SOD PHOSPHATE 10 MG/1 ML VIAL IVPUSH SCH (17:58)
[2024-04-23] MEDS: oxyCODONE HCL 5 MG TABLET PO PRN (01:09)
[2024-04-23] MEDS: hydrOXYzine PAMOATE 25 MG CAPSULE (FP) PO ONE (03:54)
[2024-04-23 07:47] LABS: HEMATOCRIT 26.3 % (32.4-45.2); MCH 29.7 pg (25.7-33.7); MCHC 34.3 g/dl (32.0-36.0); MEAN CELL VOLUME 86.5 fl (80-96); MEAN PLT VOLUME 7.5 fl (7.5-11.1); PLATELET COUNT 294 10^3/uL (134-434); RBC 3.04 M/mm3 (3.60-5.2); RDW 17.4 % (11.6-15.6); WHITE BLOOD COUNT 9.5 K/mm3 (4.0-10.0)
[2024-04-23 08:04] LABS: POTASSIUM 3.3 mmol/L (3.5-5.1)
[2024-04-23 08:08] LABS: CALCIUM 8.4 mg/dL (8.5-10.1)
[2024-04-23 08:09] LABS: ALBUMIN 1.9 g/dl (3.4-5.0); BLOOD UREA NITROGEN 10.2 mg/dL (7-18); MAGNESIUM 1.9 mg/dL (1.8-2.4)
[2024-04-23 08:12] LABS: CREATININE 0.4 mg/dL (0.55-1.3); PHOSPHOROUS 2.9 mg/dL (2.5-4.9)
[2024-04-23 08:14] LABS: BILIRUBIN,TOTAL 1.4 mg/dL (0.2-1)
[2024-04-23] MEDS: KCL 10 MEQ IVPB 10 MEQ/100 ML INFUS.BAG IVPB SCH ×2 (09:42→17:09)
[2024-04-23] MEDS: MAGNESIUM 2GM/50ML STERILE WATER IVPB IVPB ONE (11:45)
[2024-04-23] MEDS ORDERED: ALBUTEROL SO4 2.5/IPRATROPIUM 0.5 INH SOL 3 ML VIAL.NEB. NEB PRN (11:46)
[2024-04-23] MEDS: POTASSIUM CHLORIDE ORAL LIQUID 20 MEQ/15 ML PO ONE (13:48)
[2024-04-23] MEDS: dilTIAZem HCL 60 MG TABLET PO SCH (13:48)
[2024-04-23] MEDS: NAFCILLIN - 2 GM in DEXTROSE 5%-WATER 100 ML IVPB SCH (13:49)
[2024-04-23] MEDS ORDERED: REMDESIVIR 100 MG in SODIUM CHLORIDE 250 ML IVPB SCH (17:00)
[2024-04-23] MEDS: FUROSEMIDE 40 MG/4 ML INJECTABLE VIAL IVPUSH ONE (17:08)
[2024-04-23] MEDS: REMDESIVIR 100 MG in SODIUM CHLORIDE 250 ML IVPB SCH (17:08)
[2024-04-23] MEDS: PIPERACILLIN/TAZOB 4.5 GM 4.5 GM in DEXTROSE 5%-WATER 100 ML IVPB SCH (19:36)
[2024-04-23] MEDS: EZETIMIBE 10 MG TABLET (FP) PO SCH (21:15)
[2024-04-23] MEDS: LIDOCAINE PATCH REMOVAL MC SCH ×2 (22:13)
[2024-04-23] MEDS: SENNOSIDES 8.8 MG/5 ML SYRUP PO SCH (22:14)
[2024-04-23] MEDS: CHLORHEXIDINE GLUCONATE 4% CLEANSER FOR DECOLONIZATION TP SCH (22:14)
[2024-04-23] MEDS: POLYETHYLENE GLYCOL (HEALTHYLAX) 3350 17 GM PACKET PO SCH (22:14)
[2024-04-23] MEDS: oxyCODONE HCL 5 MG TABLET PO ONE (23:30)
[2024-04-24] MEDS: oxyCODONE HCL 5 MG TABLET PO PRN (03:40)
[2024-04-24 06:54] LABS: HEMATOCRIT 29.1 % (32.4-45.2); HEMOGLOBIN 9.7 GM/dL (10.7-15.3); MCH 28.5 pg (25.7-33.7); MCHC 33.4 g/dl (32.0-36.0); MEAN CELL VOLUME 85.3 fl (80-96); MEAN PLT VOLUME 7.3 fl (7.5-11.1); PLATELET COUNT 374 10^3/uL (134-434); RBC 3.41 M/mm3 (3.60-5.2); RDW 17.1 % (11.6-15.6)
[2024-04-24 07:18] LABS: CHLORIDE 105 mmol/L (98-107); SODIUM 140 mmol/L (136-145)
[2024-04-24 07:20] LABS: CALCIUM 8.7 mg/dL (8.5-10.1)
[2024-04-24 07:21] LABS: BLOOD UREA NITROGEN 8.6 mg/dL (7-18); CO2 25 mmol/L (21-32); GLUCOSE,RANDOM 110 mg/dL (74-106)
[2024-04-24 07:22] LABS: ANION GAP 10 mmol/L (4-13); MAGNESIUM 1.7 mg/dL (1.8-2.4); POTASSIUM 2.8 mmol/L (3.5-5.1)
[2024-04-24 07:24] LABS: CREATININE 0.5 mg/dL (0.55-1.3); PHOSPHOROUS 2.1 mg/dL (2.5-4.9); SGOT/AST 36 U/L (15-37); SGPT/ALT 19 U/L (13-61)
[2024-04-24 07:25] LABS: BILIRUBIN,TOTAL 1.5 mg/dL (0.2-1)
[2024-04-24 07:26] LABS: TOT PROT 6.6 g/dl (6.4-8.2)
[2024-04-24 07:27] LABS: ALK PHOS 53 U/L (45-117)
[2024-04-24] MEDS: KCL 10 MEQ IVPB 10 MEQ/100 ML INFUS.BAG IVPB SCH (08:57)
[2024-04-24] MEDS: POTASSIUM CHLORIDE ORAL LIQUID 20 MEQ/15 ML PO ONE (08:58)
[2024-04-24] MEDS: MULTIVITAMINS (DAILY MVI) TABLET (FP) PO SCH (08:58)
[2024-04-24] MEDS: ASCORBIC ACID 500 MG TABLET (FP) PO SCH (09:04)
[2024-04-24] MEDS: ZINC SULFATE 220 MG CAPSULE (FP) PO SCH (09:05)
[2024-04-24] MEDS: ESCITALOPRAM OXALATE 20 MG TABLET PO SCH (09:14)
[2024-04-24] MEDS: MAGNESIUM OXIDE 400 MG TABLET (FP) PO ONE (10:35)
[2024-04-24] MEDS: LIDOCAINE 5% TOPICAL PATCH TP SCH (10:36)
[2024-04-24] MEDS: MAGNESIUM SULF 50% (8.12 MEQ/2 ML-1 GM VIAL) IVPB ONE (10:36)
[2024-04-24] MEDS: NAPH,MB-DB/K PH,MBDB POWDER PACKET PO SCH (10:36)
[2024-04-24] MEDS ORDERED: FUROSEMIDE 40 MG/4 ML INJECTABLE VIAL ONE (15:24)
[2024-04-24] MEDS: FUROSEMIDE 40 MG/4 ML INJECTABLE VIAL IVPUSH ONE (15:26)
[2024-04-24] MEDS: AMINO ACIDS/PROTEIN HYDROLYS 30 ML LIQUID.PKT GT SCH (20:21)
[2024-04-24] MEDS: oxyCODONE HCL 5 MG TABLET PO ONE (23:25)
[2024-04-24] MEDS: MELATONIN 5 MG TABLETS PO ONE (23:25)
[2024-04-25 07:54] LABS: CHLORIDE 103 mmol/L (98-107); SODIUM 136 mmol/L (136-145)
[2024-04-25 07:58] LABS: CALCIUM 8.1 mg/dL (8.5-10.1)
[2024-04-25 07:59] LABS: BLOOD UREA NITROGEN 6.7 mg/dL (7-18); CO2 24 mmol/L (21-32); GLUCOSE,RANDOM 158 mg/dL (74-106); MAGNESIUM 1.5 mg/dL (1.8-2.4)
[2024-04-25 08:02] LABS: CREATININE 0.4 mg/dL (0.55-1.3); PHOSPHOROUS 2.2 mg/dL (2.5-4.9); SGOT/AST 34 U/L (15-37); SGPT/ALT 21 U/L (13-61)
[2024-04-25 08:04] LABS: BILIRUBIN,TOTAL 1.9 mg/dL (0.2-1); TOT PROT 6.8 g/dl (6.4-8.2)
[2024-04-25 08:05] LABS: ALK PHOS 60 U/L (45-117)
[2024-04-25 08:10] LABS: HEMATOCRIT 29.3 % (32.4-45.2); MCH 28.8 pg (25.7-33.7); MCHC 34.1 g/dl (32.0-36.0); MEAN CELL VOLUME 84.4 fl (80-96); MEAN PLT VOLUME 7.4 fl (7.5-11.1); PLATELET COUNT 412 10^3/uL (134-434); RBC 3.47 M/mm3 (3.60-5.2); RDW 17.5 % (11.6-15.6)
[2024-04-25 08:11] LABS: ANION GAP 8 mmol/L (4-13); POTASSIUM 2.3 mmol/L (3.5-5.1)
[2024-04-25] MEDS ORDERED: MAGNESIUM 1GM/D5W - 1 GM/100 ML IVPB IVPB ONE (09:11)
[2024-04-25] MEDS: KCL 10 MEQ IVPB 10 MEQ/100 ML INFUS.BAG IVPB SCH (09:38)
[2024-04-25] MEDS: POTASSIUM CHLORIDE ORAL LIQUID 20 MEQ/15 ML PO SCH (09:42)
[2024-04-25] MEDS: MAGNESIUM SULF 50% (8.12 MEQ/2 ML-1 GM VIAL) IVPB ONE (09:42)
[2024-04-25] MEDS: MAGNESIUM OXIDE 400 MG TABLET (FP) PO ONE ×2 (11:20→17:45)
[2024-04-25] MEDS: POTASSIUM PHOSPHATE 30 MM in SODIUM CHLORIDE 500 ML IVPB ONE (11:22)
[2024-04-25] MEDS: LOPERAMIDE HCL 2 MG CAPSULE PO PRN (14:04)
[2024-04-25 16:24] LABS: POTASSIUM 3.9 mmol/L (3.5-5.1)
[2024-04-25 16:25] LABS: CALCIUM 8.1 mg/dL (8.5-10.1)
[2024-04-25 16:26] LABS: MAGNESIUM 1.7 mg/dL (1.8-2.4)
[2024-04-25 16:27] LABS: BLOOD UREA NITROGEN 8.8 mg/dL (7-18)
[2024-04-25 16:30] LABS: PHOSPHOROUS 4.5 mg/dL (2.5-4.9)
[2024-04-25 16:31] LABS: CREATININE 0.5 mg/dL (0.55-1.3)
[2024-04-25] MEDS: ALPRAZolam 0.25 MG TABLET PO ONE (22:16)
[2024-04-26] MEDS: MELATONIN 5 MG TABLETS PO PRN (02:55)
[2024-04-26] MEDS: ACETAMINOPHEN 1000 MG/100 ML BAG IVPB PRN (03:18)
[2024-04-26 06:57] LABS: HEMATOCRIT 27.9 % (32.4-45.2); HEMOGLOBIN 9.3 GM/dL (10.7-15.3); MCH 28.8 pg (25.7-33.7); MCHC 33.5 g/dl (32.0-36.0); MEAN CELL VOLUME 86.1 fl (80-96); MEAN PLT VOLUME 7.6 fl (7.5-11.1); PLATELET COUNT 444 10^3/uL (134-434); RBC 3.24 M/mm3 (3.60-5.2); RDW 17.3 % (11.6-15.6); WHITE BLOOD COUNT 13.2 K/mm3 (4.0-10.0)
[2024-04-26 07:22] LABS: POTASSIUM 3.1 mmol/L (3.5-5.1)
[2024-04-26 07:27] LABS: ALBUMIN 1.9 g/dl (3.4-5.0); CALCIUM 8.4 mg/dL (8.5-10.1); MAGNESIUM 1.8 mg/dL (1.8-2.4)
[2024-04-26 07:28] LABS: BLOOD UREA NITROGEN 8.7 mg/dL (7-18)
[2024-04-26 07:30] LABS: CREATININE 0.4 mg/dL (0.55-1.3)
[2024-04-26 07:32] LABS: BILIRUBIN,TOTAL 1.5 mg/dL (0.2-1); TOT PROT 6.6 g/dl (6.4-8.2)
[2024-04-26] MEDS: POTASSIUM CHLORIDE ORAL LIQUID 20 MEQ/15 ML PO SCH (11:05)
[2024-04-26] MEDS: MAGNESIUM OXIDE 400 MG TABLET (FP) PO ONE (11:06)
[2024-04-26 15:14] LABS: POTASSIUM 3.5 mmol/L (3.5-5.1)
[2024-04-26 15:15] LABS: CALCIUM 8.4 mg/dL (8.5-10.1)
[2024-04-26 15:16] LABS: BLOOD UREA NITROGEN 8.6 mg/dL (7-18)
[2024-04-26 15:19] LABS: CREATININE 0.6 mg/dL (0.55-1.3)
[2024-04-26] MEDS: POTASSIUM PHOSPHATE 30 MM in SODIUM CHLORIDE 500 ML IVPB ONE (15:21)
[2024-04-27 07:59] LABS: BASO % 0.5 % (0-2.0); EOS % 1.3 % (0-4.5); HEMATOCRIT 27.9 % (32.4-45.2); HEMOGLOBIN 9.4 GM/dL (10.7-15.3); LYMPH % 8.2 % (8-40); MCH 29.1 pg (25.7-33.7); MCHC 33.6 g/dl (32.0-36.0); MEAN CELL VOLUME 86.6 fl (80-96); MEAN PLT VOLUME 7.6 fl (7.5-11.1); MONO % 8.8 % (3.8-10.2); NEUT % 81.2 % (42.8-82.8); PLATELET COUNT 461 10^3/uL (134-434); RBC 3.22 M/mm3 (3.60-5.2); RDW 17.6 % (11.6-15.6); WHITE BLOOD COUNT 14.4 K/mm3 (4.0-10.0)
[2024-04-27 08:11] LABS: POTASSIUM 3.6 mmol/L (3.5-5.1)
[2024-04-27 08:15] LABS: CALCIUM 8.6 mg/dL (8.5-10.1)
[2024-04-27 08:16] LABS: BLOOD UREA NITROGEN 6.2 mg/dL (7-18); MAGNESIUM 1.8 mg/dL (1.8-2.4)
[2024-04-27] MEDS ORDERED: NAFCILLIN NA 2 GM VIAL IVPB ONE (08:17)
[2024-04-27 08:18] LABS: PHOSPHOROUS 2.7 mg/dL (2.5-4.9)
[2024-04-27 08:19] LABS: CREATININE 0.4 mg/dL (0.55-1.3)
[2024-04-27 08:20] LABS: BILIRUBIN,TOTAL 1.5 mg/dL (0.2-1); TOT PROT 6.8 g/dl (6.4-8.2)
[2024-04-27] MEDS: ACETAMINOPHEN 1000 MG/100 ML BAG IVPB ONE (20:54)
[2024-04-28] MEDS ORDERED: dilTIAZem HCL 125 MG/25 ML - 25 ML VIAL ONE (05:39)
[2024-04-28] MEDS: dilTIAZem HCL 50 MG/10 ML - 10 ML VIAL IVPUSH ONE (05:48)
[2024-04-28 08:07] LABS: BASO % 0.6 % (0-2.0); EOS % 1.2 % (0-4.5); HEMATOCRIT 29.8 % (32.4-45.2); HEMOGLOBIN 9.8 GM/dL (10.7-15.3); LYMPH % 11.9 % (8-40); MCH 28.4 pg (25.7-33.7); MEAN CELL VOLUME 86.2 fl (80-96); MEAN PLT VOLUME 7.9 fl (7.5-11.1); NEUT % 77.3 % (42.8-82.8); PLATELET COUNT 541 10^3/uL (134-434); RBC 3.45 M/mm3 (3.60-5.2); RDW 18.1 % (11.6-15.6); WHITE BLOOD COUNT 15.1 K/mm3 (4.0-10.0)
[2024-04-28 08:24] LABS: CHLORIDE 107 mmol/L (98-107); SODIUM 139 mmol/L (136-145)
[2024-04-28 08:33] LABS: CALCIUM 9.3 mg/dL (8.5-10.1)
[2024-04-28 08:34] LABS: ALBUMIN 2.2 g/dl (3.4-5.0); BLOOD UREA NITROGEN 6.7 mg/dL (7-18); CO2 20 mmol/L (21-32); GLUCOSE,RANDOM 155 mg/dL (74-106)
[2024-04-28 08:36] LABS: CREATININE 0.4 mg/dL (0.55-1.3); SGPT/ALT 19 U/L (13-61)
[2024-04-28 08:37] LABS: SGOT/AST 31 U/L (15-37)
[2024-04-28 08:38] LABS: ANION GAP 12 mmol/L (4-13); BILIRUBIN,TOTAL 1.5 mg/dL (0.2-1); POTASSIUM 2.9 mmol/L (3.5-5.1); TOT PROT 7.6 g/dl (6.4-8.2)
[2024-04-28 08:39] LABS: ALK PHOS 73 U/L (45-117)
[2024-04-28] MEDS ORDERED: POTASSIUM CHLORIDE ORAL LIQUID 20 MEQ/15 ML PO SCH (10:00)
[2024-04-28] MEDS ORDERED: POTASSIUM CHLORIDE TABS 20 MEQ TABLET.ER (FP) PO ONE (12:00)
[2024-04-28] MEDS: POTASSIUM CHLORIDE TABS 20 MEQ TABLET.ER (FP) PO ONE (14:41)
[2024-04-28] MEDS: LACTOBACILLUS ACIDOPHILUS 1 TABLET PO SCH (15:24)
[2024-04-28 16:16] LABS: POTASSIUM 3.3 mmol/L (3.5-5.1)
[2024-04-28 16:17] LABS: CALCIUM 8.8 mg/dL (8.5-10.1)
[2024-04-28 16:18] LABS: BLOOD UREA NITROGEN 7.7 mg/dL (7-18)
[2024-04-28 16:21] LABS: CREATININE 0.5 mg/dL (0.55-1.3)
[2024-04-28] MEDS: MAGNESIUM SULF 50% (8.12 MEQ/2 ML-1 GM VIAL) IVPB ONE (18:00)
[2024-04-28] MEDS: POTASSIUM CHLORIDE ORAL LIQUID 20 MEQ/15 ML PO ONE (18:00)
[2024-04-29 06:44] LABS: HEMOGLOBIN 9.1 GM/dL (10.7-15.3); MCH 29.1 pg (25.7-33.7); MCHC 33.5 g/dl (32.0-36.0); MEAN CELL VOLUME 86.7 fl (80-96); MEAN PLT VOLUME 7.5 fl (7.5-11.1); PLATELET COUNT 493 10^3/uL (134-434); RBC 3.12 M/mm3 (3.60-5.2); RDW 18.5 % (11.6-15.6); WHITE BLOOD COUNT 14.1 K/mm3 (4.0-10.0)
[2024-04-29 07:08] LABS: BLOOD UREA NITROGEN 7.5 mg/dL (7-18); CALCIUM 9.1 mg/dL (8.5-10.1); MAGNESIUM 2.2 mg/dL (1.8-2.4)
[2024-04-29 07:11] LABS: CREATININE 0.5 mg/dL (0.55-1.3)
[2024-04-29 07:12] LABS: PHOSPHOROUS 2.7 mg/dL (2.5-4.9)
[2024-04-29 07:13] LABS: BILIRUBIN,TOTAL 1.3 mg/dL (0.2-1); TOT PROT 7.2 g/dl (6.4-8.2)
[2024-04-29 09:40] LABS: ANISOCYTOSIS 1+; MACROCYTOSIS 0
[2024-04-29 11:49] VITALS: TEMP 97.6
[2024-04-29] MEDS: oxyCODONE HCL 5 MG TABLET PO PRN (14:00)
[2024-04-29] MEDS: ALPRAZolam 0.25 MG TABLET PO PRN (18:27)
[2024-04-29] MEDS: MELATONIN 5 MG TABLETS PO PRN (21:56)
[2024-04-30 06:52] LABS: BASO % 0.4 % (0-2.0); HEMOGLOBIN 9.1 GM/dL (10.7-15.3); LYMPH % 9.9 % (8-40); MCHC 33.7 g/dl (32.0-36.0); MEAN CELL VOLUME 86.1 fl (80-96); MEAN PLT VOLUME 7.7 fl (7.5-11.1); MONO % 8.6 % (3.8-10.2); NEUT % 80.1 % (42.8-82.8); PLATELET COUNT 542 10^3/uL (134-434); RBC 3.14 M/mm3 (3.60-5.2); RDW 18.3 % (11.6-15.6); WHITE BLOOD COUNT 15.5 K/mm3 (4.0-10.0)
[2024-04-30 07:10] LABS: POTASSIUM 3.6 mmol/L (3.5-5.1)
[2024-04-30 07:15] LABS: ALBUMIN 2.2 g/dl (3.4-5.0); BLOOD UREA NITROGEN 8.4 mg/dL (7-18); CALCIUM 9.3 mg/dL (8.5-10.1); MAGNESIUM 1.9 mg/dL (1.8-2.4)
[2024-04-30 07:18] LABS: CREATININE 0.5 mg/dL (0.55-1.3); PHOSPHOROUS 2.9 mg/dL (2.5-4.9)
[2024-04-30 07:19] LABS: BILIRUBIN,TOTAL 1.4 mg/dL (0.2-1)
[2024-04-30 07:20] LABS: TOT PROT 7.8 g/dl (6.4-8.2)
[2024-04-30] MEDS: ZINC OXIDE 20% TOPICAL OINTMENT 30 GM TUBE TP SCH (13:30)
[2024-04-30 16:03] VITALS: BP 161/92; PULSE 91; RESP 28
== END 2024-04-30 22:00 | DRG 870 ==
LOC: FER 09:02 → FM/S 13:33 → J4W 17:35 → JICU 04-15 17:45 → J2W 04-22 16:37
PROVIDERS: ADMIT Internal Medicine; ATTEND Internal Medicine
PROC: 05HC33Z Insertion of Infusion Device into Left Basilic Vein, Percutaneous Approach (ICD-10-PCS; 2024-04-08)
PROC: 4A133J1 Monitoring of Arterial Pulse, Peripheral, Percutaneous Approach (ICD-10-PCS; 2024-04-08)
PROC: 5A1955Z Respiratory Ventilation, Greater than 96 Consecutive Hours (ICD-10-PCS; principal; 2024-04-15)
PROC: 0BH17EZ Insertion of Endotracheal Airway into Trachea, Via Natural or Artificial Opening (ICD-10-PCS; 2024-04-15)
PROC: 30233N1 Transfusion of Nonautologous Red Blood Cells into Peripheral Vein, Percutaneous Approach (ICD-10-PCS; 2024-04-15)
PROC: 30233L1 Transfusion of Nonautologous Fresh Plasma into Peripheral Vein, Percutaneous Approach (ICD-10-PCS; 2024-04-15)
PROC: 30233K1 Transfusion of Nonautologous Frozen Plasma into Peripheral Vein, Percutaneous Approach (ICD-10-PCS; 2024-04-15)
PROC: 05HN33Z Insertion of Infusion Device into Left Internal Jugular Vein, Percutaneous Approach (ICD-10-PCS; 2024-04-15)
PROC: B544ZZA Ultrasonography of Left Jugular Veins, Guidance (ICD-10-PCS; 2024-04-15)
PROC: 4A133B1 Monitoring of Arterial Pressure, Peripheral, Percutaneous Approach (ICD-10-PCS; 2024-04-15)
PROC: 4A133B1 Monitoring of Arterial Pressure, Peripheral, Percutaneous Approach (ICD-10-PCS; 2024-04-15)
PROC: 4A133J1 Monitoring of Arterial Pulse, Peripheral, Percutaneous Approach (ICD-10-PCS; 2024-04-15)
PROC: 05HB33Z Insertion of Infusion Device into Right Basilic Vein, Percutaneous Approach (ICD-10-PCS; 2024-04-20)
PROC: 06H03DZ Insertion of Intraluminal Device into Inferior Vena Cava, Percutaneous Approach (ICD-10-PCS; 2024-04-21)
PROC: XW033E5 Introduction of Remdesivir Anti-infective into Peripheral Vein, Percutaneous Approach, New Technology Group 5 (ICD-10-PCS; 2024-04-22)
DX: A41.9 Sepsis, unspecified organism (principal); I26.99 Other pulmonary embolism without acute cor pulmonale; J96.01 Acute respiratory failure with hypoxia; R65.21 Severe sepsis with septic shock; U07.1 COVID-19; K68.3 Retroperitoneal hematoma; E87.1 Hypo-osmolality and hyponatremia; N17.9 Acute kidney failure, unspecified; D62 Acute posthemorrhagic anemia; I82.412 Acute embolism and thrombosis of left femoral vein; E78.5 Hyperlipidemia, unspecified; I48.91 Unspecified atrial fibrillation; I10 Essential (primary) hypertension; R58 Hemorrhage, not elsewhere classified; E87.70 Fluid overload, unspecified; M06.9 Rheumatoid arthritis, unspecified; R19.7 Diarrhea, unspecified; E87.6 Hypokalemia; E83.42 Hypomagnesemia; E83.39 Other disorders of phosphorus metabolism; E83.51 Hypocalcemia; K59.00 Constipation, unspecified; D69.6 Thrombocytopenia, unspecified; F41.9 Anxiety disorder, unspecified
CPT/HCPCS: 0241U-QW; 36415; 36430; 36600; 71045-TC-FY; 71275-TC; 73721-RT-TC; 74174-TC; 74176-TC; 76000-TC-FY; 80048; 80053; 81003; 81015; 82088; 82248; 82272; 82436; 82550; 82553; 82570; 82728; 82803; 82962; 83010; 83605; 83615; 83735; 83880; 83930; 83935; 83970; 84100; 84132; 84133; 84300; 84484; 85025; 85027; 85045; 85130; 85379; 85384; 85610; 85730; 86850; 86880; 86900; 86901; 86922; 87040; 87070; 87081; 87086; 87186; 87205; 87324; 87449; 93005; 93010; 93306-TC; 93970-TC; 93971; 94002; 94010; 97116-GP; 97161-GP; 99291; C1880; J0131; J0248; J1100; J1644; J3490; P9017; P9058; Q9967

== ENCOUNTER 2025-04-16 19:35 | Emergency (ER) | payer BC ==
[2025-04-16 19:43] VITALS: BP 129/82; PULSE 50; RESP 18; TEMP 98.8; BMI 25.7
[2025-04-16 20:47] LABS: ABSOLUTE IMMATURE GRANULOCYTES 0.01 x10^3/uL (0.0-0.031); BASOPHILS # 0.05 x10^3/uL (0.01-0.08); EOSINOPHIL % 1.9 % (0.7-5.8); EOSINOPHILS # 0.14 x10^3/uL (0.04-0.36); MCHC 32.0 g/dl (32.2-35.5); MEAN CELL VOLUME 88.2 fl (79.4-94.8); MEAN PLT VOLUME 11.0 fl (9.4-12.3); MONOCYTE # 0.64 x10^3/uL (0.24-0.86); MONOCYTE % 8.6 % (4.7-12.5); RDW 13.3 % (12.4-16.6)
[2025-04-16 21:04] LABS: ALK PHOS 88 U/L (45-117); CO2 25 mmol/L (21-32); CREATININE 1.0 mg/dl (0.6-1.3); GLUCOSE,RANDOM 97 mg/dl (74-106); SGOT/AST 22 U/L (15-37); SGPT/ALT 20 U/L (7-52); TOT PROT 7.2 g/dl (6.4-8.2)
[2025-04-16] MEDS ORDERED: DALBAVANCIN HCL 500 MG VIAL (RESTRICTED TO ID ONLY) IVPB ONE (21:42)
[2025-04-16 21:56] LABS: HCV DIAGNOSTIC IN-HOUSE W/RFLX NON-REACTIVE (NONREACTIVE); HIV INTERPRETATION NEGATIVE (NEGATIVE)
[2025-04-16] MEDS: DALBAVANCIN HCL 1,500 MG in DEXTROSE 5%-WATER - 500 ML IVPB ONE (22:01)
== END 2025-04-16 23:37 | disposition home or self-care (01) ==
LOC: FER 19:35
PROC: 3E03329 Introduction of Other Anti-infective into Peripheral Vein, Percutaneous Approach (ICD-10-PCS; principal; 2025-04-16)
PROC: 3E033GC Introduction of Other Therapeutic Substance into Peripheral Vein, Percutaneous Approach (ICD-10-PCS; 2025-04-16)
DX: L03.113 Cellulitis of right upper limb (principal)
CPT/HCPCS: 36415; 80053; 85025; 86803; 87389; 99284-25; J0875